=== PATIENT | male | born 1940 ===

== ENCOUNTER 2017-06-25 17:02 | Inpatient (IN) | payer OTHER, MEDICAID ==
[2017-06-25 17:02] VITALS: BMI 25.4
[2017-06-25] MEDS ORDERED: Albuterol-Ipratrop 3 mg / 0.5 (3 ml) UD ONE (17:22)
[2017-06-25] MEDS ORDERED: Albuterol-Ipratrop 3 mg / 0.5 (3 ml) UD INH STA (17:24)
--- NOTE | 2017-06-25 17:46 | ED PDOC ---
HPI: SOB/CHF/COPD Time Seen by Provider: 06/25/17 17:13 Chief Complaint (Nursing): Respiratory Distress Chief Complaint (Provider): Shortness of Breath History Per: Patient History/Exam Limitations: no limitations Onset/Duration Of Symptoms: Days (x1) Current Symptoms Are (Timing): Still Present Additional Complaint(s): 77 year old male with a past medical history of asthma, who presents to the ED due to shortness of breath and asthma exacerbation x1 day. Patient reports that he has been feeling severe chest tightness, but not chest pain, and shortness of breath x1 day. States he has been using nebulizer albuterol at home with no relief. Also states he does not follow up with a doctor regularly. Denies any leg swelling or fever. Reports a cough productive of yellow sputum, but denies hemoptysis, rhinorrhea, or sore throat. Denies any sick contacts or recent travel. PMD: None Past Medical History Reviewed: Historical Data, Nursing Documentation, Vital Signs Vital Signs: Last Vital Signs Temp 99.2 F 06/25/17 17:09 Pulse 127 H 06/25/17 17:09 Resp 19 06/25/17 18:08 BP 143/76 06/25/17 17:09 Pulse Ox 90 L 06/25/17 19:32 - Medical History PMH: Anxiety, Asthma, COPD, Depression, Emphysema, HTN Denies: Chronic Kidney Disease - Surgical History Surgical History: Back Surgery Other surgeries: Right knee surgery - Family History Family History: States: Unknown Family Hx - Social History Ex-Smoker (has not smoked in the last 12 months): Yes (quit 8 months ago) - Home Medications Home Medications: Ambulatory Orders Medication Instructions Recorded ARIPiprazole [Abilify] 2 mg PO HS 03/23/16 Cyanocobalamin [Vitamin B12] 250 mcg PO DAILY #0 03/23/16 Mirtazapine [Remeron] 15 mg PO HS 03/23/16 Thiamine [Vitamin B1 Tab] 50 mg PO DAILY #0 03/23/16 Acetaminophen [Tylenol 325mg tab] 650 mg PO Q6H PRN 06/25/17 Albuterol 0.083% [Albuterol 0.083% 3 ml IH Q6H PRN 06/25/17 Inhal Linda (2.5 mg/3 ml) UD] Albuterol HFA [Ventolin HFA 90 2 puff IH Q6H PRN 06/25/17 mcg/actuation (8 g)] Fluticasone/Salmeterol 500/50 1 puff IH Q12H 06/25/17 [Advair Diskus 500/50] Folic Acid [Folic Acid] 1 mg PO DAILY 06/25/17 Omeprazole [Omeprazole] 20 mg PO DAILY 06/25/17 Tiotropium [Spiriva] 18 mcg IH DAILY 06/25/17 Venlafaxine [Effexor XR] 150 mg PO DAILY 06/25/17 - Allergies Allergies/Adverse Reactions: Allergies Allergy/AdvReac Type Severity Reaction Status Date / Time No Known Allergies Allergy Verified 03/23/16 17:52 Review of Systems ROS Statement: Except As Marked, All Systems Reviewed And Found Negative Constitutional: Negative for: Fever ENT: Negative for: Nose Discharge, Throat Pain Cardiovascular: Positive for: Other (chest tightness). Negative for: Chest Pain Respiratory: Positive for: Cough, Shortness of Breath, Sputum (yellow). Negative for: Hemoptysis Musculoskeletal: Negative for: Leg Pain - Laboratory Results Result Diagrams: 06/25/17 17:50 06/25/17 17:50 - ECG O2 Sat by Pulse Oximetry: 90 - Critical Care Total Time (In Min): 30 Medical Decision Making Medical Decision Making: Time: 17:53 Initial Impression: Hypertension, cough, and chest pain. Differential diagnoses include, but are not limited to bronchitis, pneumonia, CHF, ACS Initial Plan: --CT Head w/o contrast --EKG --BNP --CMP --Lactic acid, plasma --Magnesium --Phosphorus --TSH --Troponin I --PTT --PT --Chest X-Ray 2 views --Blood culture --air sampling and monitoring --IV insertion --Reevaluation Time: 18:45 Labs reviewed and found unremarkable. CXR demonstrates opacity in left mid-lung field. Not seen on previous X-Ray 02/2016. Patient's MR number at the time was [id number]. CT ordered for further evaluation. Antibiotics ordered for possible pneumonia. Time: 21:[address] Roman, who covers patient's PMD, for admission to this hospital. Scribe Attestation: Documented by Gualberto Hernandez, acting as a scribe for Zaira Barnes MD. Provider Scribe Attestation: All medical record entries made by the Scribe were at my direction and personally dictated by me. I have reviewed the chart and agree that the record accurately reflects my personal performance of the history, physical exam, medical decision making, and the department course for this patient. I have also personally directed, reviewed, and agree with the discharge instructions and disposition. Disposition - Patient ED Disposition Is Patient to be Admitted: Yes - Disposition Disposition Time: 21:10 Forms: [employer] ([place]) - Pt Status Changed To: Hospital Disposition Of: Inpatient - Admit Certification Admit to Inpatient:: After my assessment, the patient will require hospitalization for at least two midnights. This is because of the severity of symptoms shown, intensity of services needed, and/or the medical risk in this patient being treated as an outpatient.
[2017-06-25 18:03] LABS: BASO # 0.1 K/uL (0.0-0.2); BASO % 0.6 % (0.0-2.0); EOS # 1.2 K/uL (0.0-0.7); EOS % 14.5 % (0.0-4.0); HEMOGLOBIN 12.4 g/dL (12.0-18.0); LYMPH % 23.9 % (20.0-40.0); MEAN CELL VOLUME 93.9 fl (80.0-94.0); MEAN CORPUSCULAR HEMOGLOBIN 30.8 pg (27.0-31.0); MEAN CORPUSCULAR HGB CONC 32.9 g/dL (33.0-37.0); MEAN PLATELET VOLUME 7.9 fl (7.2-11.7); MONO # 0.7 K/uL (0.0-0.8); MONO % 8.2 % (0.0-10.0); NEUT # 4.4 K/uL (1.8-7.0); NEUT % 52.8 % (50.0-75.0); RBC 4.02 Mil/uL (4.40-5.90); RED CELL DISTRIBUTION WIDTH 15.1 % (11.5-14.5); WHITE BLOOD COUNT 8.3 K/uL (4.8-10.8)
[2017-06-25 18:11] LABS: VENOUS BLOOD GAS BASE EXCESS -0.8 mmol/L (0.0-2.0); VENOUS BLOOD GAS PCO2 52 mmHg (40-60); VENOUS BLOOD GAS PO2 92 mm/Hg (30-55); VENOUS BLOOD PH 7.31 (7.32-7.43)
[2017-06-25 18:14] LABS: ALB/GLOB RATIO 1.2 (1.0-2.1); ALBUMIN 4.2 g/dL (3.5-5.0); ALT/SGPT 36 U/L (21-72); AST/SGOT 20 U/L (17-59); BLOOD UREA NITROGEN 16 mg/dl (9-20); CALCIUM 9.5 mg/dL (8.4-10.2); GFR AFRICAN-AMERICAN > 60; GFR NON-AFRICAN AMERICAN > 60
[2017-06-25 18:21] LABS: PARTIAL THROMBOPLASTIN TIME 28.2 Seconds (25.6-37.1)
[2017-06-25 18:26] LABS: B-TYPE NATRIURETIC PEPTIDE 229 pg/ml (0-900)
[2017-06-25] MEDS ORDERED: Azithromycin 500 MG in Sodium Chloride 0.9% 250 ML IVPB ONE (19:00)
--- NOTE | 2017-06-25 20:54 | CT ---
EXAM: CT Chest Without Intravenous Contrast EXAM DATE/TIME: 06/25/2017 6:43 PM CLINICAL HISTORY: 77 years old, male; Signs and symptoms; Shortness of breath and other: Asthma exacerbation; Additional info: Left midlung opacity TECHNIQUE: Axial computed tomography images of the chest without intravenous contrast. All CT scans at this facility use one or more dose reduction techniques, viz.: automated exposure control; ma/kV adjustment per patient size (including targeted exams where dose is matched to indication; i.e. head); or iterative reconstruction technique. Coronal and sagittal reformatted images were created and reviewed. COMPARISON: Recent chest radiographs. FINDINGS: LIMITATIONS: Moderate respiratory motion artifact. LUNGS: Evaluation is somewhat limited due to respiratory motion. A long, bandlike opacity is seen in the left lung, which extends craniocaudally from the lung apex to the hilum. This is associated with bronchiectatic changes and volume loss, and partially extends along the major fissure. The overall appearance of this finding is suggestive of focal chronic scarring and bronchiectasis. Mild emphysematous changes in the lung apices, greater on the right. No definite focal consolidation/infiltrate is seen in the lungs. No evidence of diffuse pulmonary vascular congestion. No large, spiculated lung masses are visualized. PLEURAL SPACE: No pneumothorax or significant pleural effusions seen. HEART: Coronary artery calcification. Heart appears mildly enlarged. No evidence of significant pericardial effusion. BONES/JOINTS: Mild, chronic vertebral compression fracture involving T9. Bony structures appear demineralized. SOFT TISSUES: No acute abnormality of the visualized soft tissues is seen. VASCULATURE: Exam is nondiagnostic for aortic dissection and pulmonary emboli, secondary to unenhanced technique. No evidence of thoracic aortic aneurysm. LYMPH NODES: No evidence of diffuse lymphadenopathy. IMPRESSION: - No evidence of significant acute process on this unenhanced exam, allowing for motion artifact. - The chest radiographic finding appears to correspond to an area of chronic scarring and bronchiectasis in the left lung, as described. - See above for remaining findings.
[2017-06-25] MEDS: Fluticasone-Salmeterol 500-50mcg Diskus IH SCH (23:58)
[2017-06-26] MEDS: Levalbuterol 1.25 MG/3 ML Inhal Soln UD INH SCH ×4 (01:02→20:26)
[2017-06-26] MEDS: Ipratropium 0.02% Inhal Soln (0.5 mg/2.5 ml) UD IH SCH ×4 (01:03→20:26)
[2017-06-26] MEDS ORDERED: methylPREDNISolone 60 MG in Sodium Chloride 0.9% 50 ML IV SCH (04:00)
[2017-06-26 05:32] LABS: BLOOD UREA NITROGEN 16 mg/dl (9-20); CALCIUM 9.4 mg/dL (8.4-10.2); GFR AFRICAN-AMERICAN > 60; GFR NON-AFRICAN AMERICAN > 60; HDL CHOLESTEROL 79 MG/DL (30-70)
[2017-06-26 05:33] LABS: HEMOGLOBIN 12.1 g/dL (12.0-18.0); MEAN CELL VOLUME 93.9 fl (80.0-94.0); MEAN CORPUSCULAR HEMOGLOBIN 31.1 pg (27.0-31.0); MEAN CORPUSCULAR HGB CONC 33.1 g/dL (33.0-37.0); RBC 3.88 Mil/uL (4.40-5.90); WHITE BLOOD COUNT 8.7 K/uL (4.8-10.8)
[2017-06-26 05:43] LABS: LDL CHOLESTEROL 143 mg/dL (0-129)
[2017-06-26] MEDS ORDERED: CYANOCOBALAMIN 500 MCG TAB PO SCH (09:00)
--- NOTE | 2017-06-26 09:07 | CARD ---
APPROVED REPORT EKG Measurement Heart [id number] <Conclusion> Sinus tachycardia with occasional premature ventricular complexes Otherwise normal ECG
[2017-06-26] MEDS: Azithromycin 500 MG in Sodium Chloride 0.9% 250 ML IVPB SCH (09:38)
[2017-06-26] MEDS: Pantoprazole 40 mg EC Tab PO SCH (09:39)
[2017-06-26] MEDS: Venlafaxine 150 mg ER Cap PO SCH (09:40)
--- NOTE | 2017-06-26 12:15 | CP.PCM.HP ---
History of Present Illness - History of Present Illness History of Present Illness: A 77 year old male with a pmhx of HTN, asthma, COPD, emphysema presents to the ED with complains of SOB, cough and chest tightness x 1 day. Patient states he used his nebulizer at home but that did not help. He states cough is productive of yellow sputum. Denies chest pain, palpitations, headache , f/c/n/v. After treatment in the ED, the patient was still SOB thus was admitted for further management. Present on Admission - Present on Admission Any Indicators Present on Admission: No Review of Systems - Review of Systems All systems: reviewed and no additional remarkable complaints except (as noted) - Constitutional Constitutional: As Per HPI - Cardiovascular Cardiovascular: As Per HPI - Respiratory Respiratory: As Per HPI, Cough, Dyspnea - Gastrointestinal Gastrointestinal: As Per HPI - Neurological Neurological: As Per HPI Past Patient History - Infectious Disease Hx of Infectious Diseases: None - Tetanus Immunizations Tetanus Immunization: Unknown - Past Medical History & Family History Past Medical History?: Yes - Past Social History Smoking Status: Former Smoker - CARDIAC Hx Cardiac Disorders: Yes Hx Hypertension: Yes - PULMONARY Hx Respiratory Disorders: Yes Hx Asthma: Yes Hx Chronic Obstructive Pulmonary Disease (COPD): Yes Hx Emphysema: Yes - NEUROLOGICAL Hx Neurological Disorder: No - HEENT Hx HEENT Problems: No - RENAL Hx Chronic Kidney Disease: No - ENDOCRINE/METABOLIC Hx Endocrine Disorders: No - HEMATOLOGICAL/ONCOLOGICAL Hx Blood Disorders: No - INTEGUMENTARY Hx Dermatological Problems: No - MUSCULOSKELETAL/RHEUMATOLOGICAL Hx Musculoskeletal Disorders: No Hx Falls: No - GASTROINTESTINAL Hx Gastrointestinal Disorders: No - GENITOURINARY/GYNECOLOGICAL Hx Genitourinary Disorders: No - PSYCHIATRIC Hx Psychophysiologic Disorder: Yes Hx Anxiety: Yes Hx Depression: Yes Hx Substance Use: No - SURGICAL HISTORY Hx Surgeries: Yes Hx Orthopedic Surgery: Yes (left knee replacement,back surgery) - ANESTHESIA Hx Anesthesia: Yes Hx Anesthesia Reactions: No Hx Malignant Hyperthermia: No Has any member of the family had a problem w/ anesthesia?: No Meds Home Medications: Home Medication List Medication Instructions Recorded Confirmed Type Lactulose [Enulose] 20 gm PO BID PRN udc 07/07/17 Rx diltiaZEM [Cardizem] 30 mg PO TID tab 07/07/17 Rx Allergies/Adverse Reactions: Allergies Allergy/AdvReac Type Severity Reaction Status Date / Time No Known Allergies Allergy Verified 03/23/16 17:52 Physical Exam - Constitutional Additional comments: Short of breath - Head Exam Head Exam: ATRAUMATIC, NORMOCEPHALIC - Eye Exam Eye Exam: Normal appearance Pupil Exam: NORMAL ACCOMODATION - ENT Exam ENT Exam: Mucous Membranes Moist - Neck Exam Neck exam: Positive for: Full Rom - Respiratory Exam Respiratory Exam: Wheezes (scattered through out lung driscoll) - Cardiovascular Exam Cardiovascular Exam: REGULAR RHYTHM, +S1, +S2 - GI/Abdominal Exam GI & Abdominal Exam: Distended (soft), Normal Bowel Sounds - Rectal Exam Rectal Exam: Deferred - Extremities Exam Extremities exam: Positive for: full ROM, pedal pulses present (no edema) - Back Exam Back exam: NORMAL INSPECTION - Neurological Exam Neurological exam: Alert, Oriented x3 - Psychiatric Exam Psychiatric exam: Normal Affect, Normal Mood - Skin Skin Exam: Normal Color, Warm Results - Vital Signs Recent Vital Signs: Last Vital Signs Temp 97.3 F L 06/26/17 08:06 Pulse 97 H 06/26/17 08:06 Resp 20 06/26/17 08:06 BP 138/81 06/26/17 08:06 Pulse Ox 96 06/26/17 08:06 - Labs Result Diagrams: 07/06/17 05:50 07/06/17 05:50 Labs: Laboratory Results - last 24 hr 06/25/17 06/25/17 06/25/17 17:50 17:50 17:50 WBC 8.3 D RBC 4.02 L Hgb 12.4 D Hct 37.8 MCV 93.9 D MCH 30.8 MCHC 32.9 L RDW 15.1 H Plt Count 188 MPV 7.9 Neut % (Auto) 52.8 Lymph % (Auto) 23.9 [place] % (Auto) 8.2 Eos % (Auto) 14.5 H Baso % (Auto) 0.6 Neut # (Auto) 4.4 Lymph # (Auto) 2.0 [place] # (Auto) 0.7 Eos # (Auto) 1.2 H Baso # (Auto) 0.1 PT INR APTT pO2 VBG pH VBG pCO2 VBG HCO3 VBG Total CO2 VBG O2 Sat (Calc) VBG Base Excess VBG Potassium Glucose Lactate FiO2 Sodium 141 Potassium 4.3 Chloride 104 Carbon Dioxide 27 Anion Gap 14 BUN 16 Creatinine 0.9 Est GFR ( Amer) > 60 Est GFR (Non-Af Amer) > 60 Random Glucose 106 Calcium 9.5 Total Bilirubin 0.4 AST 20 ALT 36 Alkaline Phosphatase 63 Troponin I < 0.0120 NT-Pro-B Natriuret Pep 229 Total Protein 7.5 Albumin 4.2 Globulin 3.4 Albumin/Globulin Ratio 1.2 Triglycerides Cholesterol LDL Cholesterol Direct HDL Cholesterol Vitamin B12 TSH 3rd Generation Venous Blood Potassium Influenza Typ A,B (EIA) Negative for flu a/b Blood Type Antibody Screen BBK History Checked 06/25/17 06/25/17 06/25/17 17:50 17:50 18:08 WBC RBC Hgb Hct MCV MCH MCHC RDW Plt Count MPV Neut % (Auto) Lymph % (Auto) [place] % (Auto) Eos % (Auto) Baso % (Auto) Neut # (Auto) Lymph # (Auto) [place] # (Auto) Eos # (Auto) Baso # (Auto) PT 11.0 INR 1.0 APTT 28.2 pO2 92 H VBG pH 7.31 L VBG pCO2 52 VBG HCO3 24.3 VBG Total CO2 27.8 VBG O2 Sat (Calc) 99.1 H VBG Base Excess -0.8 L VBG Potassium 4.3 Glucose 103 Lactate 2.1 FiO2 21.0 Sodium 140.0 Potassium Chloride 103.0 Carbon Dioxide Anion Gap BUN Creatinine Est GFR ( Amer) Est GFR (Non-Af Amer) Random Glucose Calcium Total Bilirubin AST ALT Alkaline Phosphatase Troponin I NT-Pro-B Natriuret Pep Total Protein Albumin Globulin Albumin/Globulin Ratio Triglycerides Cholesterol LDL Cholesterol Direct HDL Cholesterol Vitamin B12 TSH 3rd Generation Venous Blood Potassium 4.3 Influenza Typ A,B (EIA) Blood Type A POSITIVE Antibody Screen Negative BBK History Checked No verified bt 06/26/17 06/26/17 06/26/17 05:10 05:10 08:15 WBC 8.7 RBC 3.88 L Hgb 12.1 Hct 36.4 MCV 93.9 MCH 31.1 H MCHC 33.1 RDW 15.0 H Plt Count 190 MPV Neut % (Auto) Lymph % (Auto) [place] % (Auto) Eos % (Auto) Baso % (Auto) Neut # (Auto) Lymph # (Auto) [place] # (Auto) Eos # (Auto) Baso # (Auto) PT INR APTT pO2 VBG pH VBG pCO2 VBG HCO3 VBG Total CO2 VBG O2 Sat (Calc) VBG Base Excess VBG Potassium Glucose Lactate FiO2 Sodium 142 Potassium 4.5 Chloride 105 Carbon Dioxide 24 Anion Gap 18 BUN 16 Creatinine 0.8 Est GFR ( Amer) > 60 Est GFR (Non-Af Amer) > 60 Random Glucose 163 H Calcium 9.4 Total Bilirubin AST ALT Alkaline Phosphatase Troponin I NT-Pro-B Natriuret Pep Total Protein Albumin Globulin Albumin/Globulin Ratio Triglycerides 71 Cholesterol 242 H LDL Cholesterol Direct 143 H HDL Cholesterol 79 H Vitamin B12 638 TSH 3rd Generation 0.67 Venous Blood Potassium Influenza Typ A,B (EIA) Blood Type Antibody Screen BBK History Checked - Imaging and Cardiology Chest x-ray Additional comment: HISTORY: Shortness of breath. COMPARISON: None. FINDINGS: LUNGS: No active pulmonary disease. PLEURA: No significant pleural effusion identified, no pneumothorax apparent. CARDIOVASCULAR: No radiographic findings to suggest acute or significant cardiovascular disease. OSSEOUS STRUCTURES: No significant abnormalities. VISUALIZED UPPER ABDOMEN: Normal. OTHER FINDINGS: None. IMPRESSION: No active disease. CT scan - chest Additional comment: CT Scan CHEST W/O CONTRAST Exam Date: 06/25/17 This imaging exam was performed at [facility], [place] EXAM: CT Chest Without Intravenous Contrast EXAM DATE/TIME: 06/25/2017 6:43 PM CLINICAL HISTORY: 77 years old, male; Signs and symptoms; Shortness of breath and other: Asthma exacerbation; Additional info: Left midlung opacity TECHNIQUE: Axial computed tomography images of the chest without intravenous contrast. All CT scans at this facility use one or more dose reduction techniques, viz.: automated exposure control; ma/kV adjustment per patient size (including targeted exams where dose is matched to indication; i.e. head); or iterative reconstruction technique. Coronal and sagittal reformatted images were created and reviewed. COMPARISON: Recent chest radiographs. FINDINGS: LIMITATIONS: Moderate respiratory motion artifact. LUNGS: Evaluation is somewhat limited due to respiratory motion. A long, bandlike opacity is seen in the left lung, which extends craniocaudally from the lung apex to the hilum. This is associated with bronchiectatic changes and volume loss, and partially extends along the major fissure. The overall appearance of this finding is suggestive of focal chronic scarring and bronchiectasis. Mild emphysematous changes in the lung apices, greater on the right. No definite focal consolidation/infiltrate is seen in the lungs. No evidence of diffuse pulmonary vascular congestion. No large, spiculated lung masses are visualized. PLEURAL SPACE: No pneumothorax or significant pleural effusions seen. HEART: Coronary artery calcification. Heart appears mildly enlarged. No evidence of significant pericardial effusion. BONES/JOINTS: Mild, chronic vertebral compression fracture involving T9. Bony structures appear demineralized. SOFT TISSUES: No acute abnormality of the visualized soft tissues is seen. VASCULATURE: Exam is nondiagnostic for aortic dissection and pulmonary emboli, secondary to unenhanced technique. No evidence of thoracic aortic aneurysm. LYMPH NODES: No evidence of diffuse lymphadenopathy. IMPRESSION: - No evidence of significant acute process on this unenhanced exam, allowing for motion artifact. - The chest radiographic finding appears to correspond to an area of chronic scarring and bronchiectasis in the left lung, as described. - See above for remaining findings. Dictated By: Ginger Edwards MD Dictated Date/Time: 06/25/172053 Signed By: Ginger Edwards MD Date Signed: 2053 Transcribed By: CELSA Transcribe Date/Time : 06/25/172053 [facility] [ Reading ] [ Conclusion ] Assessment & Plan (1) COPD exacerbation Assessment and Plan: respiratory treatments Duonebs q4 hrs and prn IV steroids O2 via NC, maintain saturation > 92% monitor worker DVT prophylaxis Status: Acute Priority: High (2) HTN (hypertension) Assessment and Plan: cardiac meds Status: Chronic Priority: Medium (3) Tachycardia Assessment and Plan: Cardizem EKG tele monitoring Status: Acute (4) CAP (community acquired pneumonia) Assessment and Plan: Initiate antibiotics Ceftriaxone, Azithromycin sputum culture Status: Resolved Priority: High
--- NOTE | 2017-06-26 12:48 | RAD ---
HISTORY: Shortness of breath. COMPARISON: None. FINDINGS: LUNGS: No active pulmonary disease. PLEURA: No significant pleural effusion identified, no pneumothorax apparent. CARDIOVASCULAR: No radiographic findings to suggest acute or significant cardiovascular disease. OSSEOUS STRUCTURES: No significant abnormalities. VISUALIZED UPPER ABDOMEN: Normal. OTHER FINDINGS: None. IMPRESSION: No active disease.
[2017-06-26] MEDS: Fluticasone-Salmeterol 500-50mcg Diskus IH SCH (15:29)
[2017-06-26] MEDS: CYANOCOBALAMIN (VITAMIN B-12) 250 MCG TABLET PO SCH (15:30)
[2017-06-27] MEDS: Fluticasone-Salmeterol 500-50mcg Diskus IH SCH ×2 (00:05→10:47)
[2017-06-27] MEDS: Ipratropium 0.02% Inhal Soln (0.5 mg/2.5 ml) UD IH SCH ×4 (01:32→19:37)
[2017-06-27] MEDS: Levalbuterol 1.25 MG/3 ML Inhal Soln UD INH SCH ×4 (01:32→19:37)
[2017-06-27] MEDS: CYANOCOBALAMIN (VITAMIN B-12) 250 MCG TABLET PO SCH (08:57)
[2017-06-27] MEDS: Venlafaxine 150 mg ER Cap PO SCH (08:57)
[2017-06-27] MEDS: Pantoprazole 40 mg EC Tab PO SCH (08:58)
[2017-06-27] MEDS: Azithromycin 500 MG in Sodium Chloride 0.9% 250 ML IVPB SCH (08:59)
[2017-06-27] MEDS ORDERED: Levalbuterol 1.25 MG/3 ML Inhal Soln UD INH STA (15:39)
[2017-06-27 15:46] LABS: ABG ALLEN TEST YES; ARTERIAL BLOOD GAS HCO3 26.5 mmol/L (21-28); ARTERIAL BLOOD GAS HEMOGLOBIN 12.1 g/dL (11.7-17.4); ARTERIAL BLOOD GAS O2 CAPACITY 16.8 mL/dL (16-24); ARTERIAL BLOOD GAS O2 CONTENT 16.5 ML/dL (15-23); ARTERIAL BLOOD GAS O2 SAT 98.3 % (95-98); ARTERIAL BLOOD GAS PCO2 47 mm/Hg (35-45); ARTERIAL BLOOD GAS PH 7.38 (7.35-7.45); ARTERIAL BLOOD GAS PO2 103 mm/Hg (80-100); ARTERIAL BLOOD GAS TCO2 29.2 mmol/L (22-28)
[2017-06-27] MEDS ORDERED: Iodixanol 320 MG/ML 100 ML BOTTLE IV ONE (15:47)
[2017-06-27] MEDS ORDERED: Sodium Chloride 0.9% 0 ML IV ONE (15:47)
[2017-06-27 15:57] LABS: BASO % 0.1 % (0.0-2.0); HEMOGLOBIN 11.7 g/dL (12.0-18.0); LYMPH # 0.8 K/uL (1.0-4.3); LYMPH % 6.4 % (20.0-40.0); MEAN CELL VOLUME 93.4 fl (80.0-94.0); MEAN CORPUSCULAR HEMOGLOBIN 30.9 pg (27.0-31.0); MEAN CORPUSCULAR HGB CONC 33.1 g/dL (33.0-37.0); MEAN PLATELET VOLUME 7.9 fl (7.2-11.7); MONO # 0.4 K/uL (0.0-0.8); MONO % 3.8 % (0.0-10.0); NEUT # 10.6 K/uL (1.8-7.0); NEUT % 89.7 % (50.0-75.0); PLATELET COUNT 196 K/uL (130-400); RBC 3.79 Mil/uL (4.40-5.90); WHITE BLOOD COUNT 11.8 K/uL (4.8-10.8)
--- NOTE | 2017-06-27 16:30 | PCM.RRT ---
<Angus Foy - Last Filed: 06/27/17 16:34> [employer] Nurse Assessment - Situation [employer] Reason for Call: Tachycardia, Respiratory Distress - Respiratory Oxygen Delivery Method: Nasal Cannula I.Reason for [employer] - A) Acute Change in Patient: Subjective: [employer] Time: 15:25 [employer] Arrival: 15:25 [employer] Location: [facility]-2 S: [employer] was called by RN on a 77 y/o male due to respiratory difficulty and tachycardia. Pt was on suspine sitting position, with oxygen flowing by nasal cannula. Pt reports severe SOB. O: -Vital signs: BP 172/87, HR 125, Sat O2 96%. -Physical Exam: > Gen: Pt awake, alert and in respiratory distress, able to speak in very short sentences with a lot of effort. > Lungs: Tachypneic with diffuse wheezing on bilateral lungs. > CV: Tachycardia, S1 and S2 present. > ABD: Distended, non-tender. > EXT: No peripheral edema, no cyanosis. [employer] Interventions: - Pt's position in bed re-adjusted and kept in sitting position. Oxygen delivery by NC was optimized. - CBC, CMP, ABG ordered. - Levalbuterol 1.25mg INH ordered. - Cardizem 30 mg administered. - EKG performed, showed sinus tachycardia with a rate of 113 bpm. - CTA of chest, r/o PE. - Attending physician was contacted and made aware of plan. - Pt remained under observation, awake with O2 saturation in the 96-98% range. A/P: 77 y/o M with a PMHx of COPD and HTN, admitted for COPD exacerbation, with aggravating dyspnea and sinus tachycardia, need to R/O PE. - F/U CTA of chest. - F/U ABG, CBC and CMP. - Monitor vital signs. [employer] Leader: Angelique Vogel [employer] Residents: Dr Foy PGY-1. <Angelique Hurd - Last Filed: 06/27/17 16:38> [employer] Nurse Assessment - Vital Signs Vital Signs: Rapid Response Vital Sign Blood Pressure 148/85 Pulse Rate 121 Respiratory Rate 26 Temperature 98.7 F Oxygen Saturation 96 - Vital Signs at end of [employer] Vital Signs at end of [employer]: Rapid Response End Vital Sign Blood Pressure 133/78 Pulse Rate 114 Respiratory Rate 19 Temperature 97.9 F O2 Sat by Pulse Oximetry 93 Attending/Attestation - Attestation I have personally seen and examined this patient.: Yes I have fully participated in the care of the patient.: Yes I have reviewed all pertinent clinical information, including history, physical exam and plan: Yes Notes (Text): Problems: 1. Sinus Tachycardia 2. COPD exacerbation - EKG sinus Tach - ABG 7.38/47/103/98% at 4 liters NC - cont IV steroids, Abx - Xopenex RTC - start low dose Cardizem for HTN and Tachy - CTA of chest to r/o PE Spoke with pt's PMD - Dr Roman - discussed case - he will ff up on pt
[2017-06-27 16:49] LABS: ALB/GLOB RATIO 1.2 (1.0-2.1); ALBUMIN 4.2 g/dL (3.5-5.0); ALT/SGPT 44 U/L (21-72); AST/SGOT 33 U/L (17-59); BLOOD UREA NITROGEN 29 mg/dl (9-20); CALCIUM 9.5 mg/dL (8.4-10.2); GFR AFRICAN-AMERICAN > 60; GFR NON-AFRICAN AMERICAN > 60
[2017-06-27 18:45] LABS: BANDS 3 % (0-2); LYMPHOCYTE 8 % (20-50); MONOCYTE 5 % (0-10); NEUTROPHIL 84 % (42-75); TOTAL CELLS COUNTED 100
[2017-06-27 18:46] LABS: ANISOCYTOSIS SLIGHT; PLATELET ESTIMATE NORMAL (NORMAL)
--- NOTE | 2017-06-27 23:55 | CP.PCM.PN ---
Subjective - Date & Time of Evaluation Date of Evaluation: 06/27/17 Time of Evaluation: 14:50 - Subjective Subjective: continues to be SOB, has cough with yellow sputum. Denies cp, fever or chills Objective - Vital Signs/Intake and Output Vital Signs (last 24 hours): Temp Pulse Resp BP Pulse Ox 97.3 F L 99 H 20 129/58 L 95 06/27/17 23:51 06/27/17 23:51 06/27/17 23:51 06/27/17 23:51 06/27/17 23:51 Intake and Output: 06/27/17 06/28/17 18:59 06:59 Intake Total 1000 Output Total 800 Balance 200 - Medications Medications: Current Medications Acetaminophen (Tylenol 325mg Tab) 650 mg PO Q6H PRN PRN Reason: Pain, Mild (1-3) Last Admin: 06/26/17 01:06 Dose: 650 mg Aripiprazole (Abilify) 2 mg PO HS [facility] Last Admin: 06/27/17 21:59 Dose: 2 mg Diltiazem HCl (Cardizem) 30 mg PO TID [facility] Last Admin: 06/27/17 18:44 Dose: Not Given Folic Acid (Folic Acid) 1 mg PO DAILY [facility] Last Admin: 06/27/17 08:58 Dose: 1 mg Heparin Sodium (Porcine) (Heparin) 5,000 units SC Q8 [facility] PRN Reason: Protocol Last Admin: 06/27/17 16:15 Dose: 5,000 units Ceftriaxone Sodium 1 gm/ (Sodium Chloride) 50 mls @ 50 mls/hr IVPB DAILY [facility] PRN Reason: Protocol Last Admin: 06/27/17 08:59 Dose: 50 mls/hr Azithromycin 500 mg/ Sodium (Chloride) 250 mls @ 250 mls/hr IVPB DAILY [facility] PRN Reason: Protocol Last Admin: 06/27/17 08:59 Dose: 250 mls/hr Ibuprofen (Motrin Tab) 400 mg PO Q6 PRN PRN Reason: Pain, moderate (4-7) Last Admin: 06/27/17 12:26 Dose: 400 mg Ipratropium [place] (Atrovent) 0.5 mg IH RQ6 [facility] Last Admin: 06/27/17 19:37 Dose: 0.5 mg Levalbuterol HCl (Xopenex) 1.25 mg INH RQ6 [facility] Last Admin: 06/27/17 19:37 Dose: 1.25 mg Methylprednisolone (Solu-Medrol) 60 mg IV Q6 [facility] Last Admin: 06/27/17 22:00 Dose: 60 mg Mirtazapine (Remeron) 15 mg PO HS [facility] Last Admin: 06/27/17 22:00 Dose: 15 mg Pantoprazole Sodium (Protonix Ec Tab) 40 mg PO DAILY [facility] Last Admin: 06/27/17 08:58 Dose: 40 mg Fluticasone/Salmeterol (Advair Diskus 500/50) 1 puff IH Q12H [facility] Last Admin: 06/27/17 10:47 Dose: 1 puff Thiamine HCl (Vitamin B1 Tab) 50 mg PO DAILY [facility] Last Admin: 06/27/17 08:58 Dose: 50 mg Venlafaxine HCl (Effexor Xr) 150 mg PO DAILY [facility] Last Admin: 06/27/17 08:57 Dose: 150 mg - Labs Labs: 06/27/17 15:53 06/27/17 15:53 PT 11.0 Seconds (9.8-13.1) 06/25/17 17:50 INR 1.0 (0.9-1.2) 06/25/17 17:50 APTT 28.2 Seconds (25.6-37.1) 06/25/17 17:50 - Constitutional Appears: Non-toxic (appear SOB) - Head Exam Head Exam: ATRAUMATIC, NORMOCEPHALIC - Respiratory Exam Respiratory Exam: Wheezes (scattered) - Cardiovascular Exam Cardiovascular Exam: REGULAR RHYTHM, +S1, +S2 - Neurological Exam Neurological Exam: Alert, Oriented x3 - Psychiatric Exam Psychiatric exam: Normal Affect, Normal Mood - Skin Skin Exam: Normal Color, Warm Assessment and Plan (1) COPD exacerbation Assessment & Plan: Duonebs q4 hrs and prn solumedrol Oxygen via Nc DVT prohylaxis Status: Acute (2) HTN (hypertension) Assessment & Plan: continue cardiac meds Status: Chronic (3) Tachycardia Assessment & Plan: On cardizem repeat EGK tele monitoring Status: Acute (4) CAP (community acquired pneumonia) Assessment & Plan: continue abx Rocephin/Zithromax Status: Resolved
[2017-06-28] MEDS: Fluticasone-Salmeterol 500-50mcg Diskus IH SCH ×3 (00:43→22:54)
[2017-06-28] MEDS: Ipratropium 0.02% Inhal Soln (0.5 mg/2.5 ml) UD IH SCH ×4 (01:00→19:12)
[2017-06-28] MEDS: Levalbuterol 1.25 MG/3 ML Inhal Soln UD INH SCH ×4 (01:00→19:12)
[2017-06-28] MEDS: Venlafaxine 150 mg ER Cap PO SCH (09:16)
[2017-06-28] MEDS: Pantoprazole 40 mg EC Tab PO SCH (09:19)
[2017-06-28] MEDS: CYANOCOBALAMIN (VITAMIN B-12) 250 MCG TABLET PO SCH (09:23)
[2017-06-28] MEDS: Azithromycin 500 MG in Sodium Chloride 0.9% 250 ML IVPB SCH (11:59)
[2017-06-29] MEDS: Levalbuterol 1.25 MG/3 ML Inhal Soln UD INH SCH ×2 (01:06→07:38)
[2017-06-29] MEDS: Ipratropium 0.02% Inhal Soln (0.5 mg/2.5 ml) UD IH SCH ×2 (01:06→07:37)
[2017-06-29] MEDS ORDERED: Ipratropium 0.02% Inhal Soln (0.5 mg/2.5 ml) UD IH STA (05:03)
[2017-06-29] MEDS ORDERED: Levalbuterol 1.25 MG/3 ML Inhal Soln UD INH ONE (05:05)
[2017-06-29] MEDS: Venlafaxine 150 mg ER Cap PO SCH (08:31)
[2017-06-29] MEDS: Pantoprazole 40 mg EC Tab PO SCH (08:33)
[2017-06-29] MEDS: Azithromycin 500 MG in Sodium Chloride 0.9% 250 ML IVPB SCH (08:34)
[2017-06-29] MEDS: CYANOCOBALAMIN (VITAMIN B-12) 250 MCG TABLET PO SCH (09:00)
[2017-06-29] MEDS: Fluticasone-Salmeterol 500-50mcg Diskus IH SCH (11:00)
[2017-06-29] MEDS ORDERED: Albuterol-Ipratrop 3 mg / 0.5 (3 ml) UD INH STA ×2 (11:01→11:06)
[2017-06-29] MEDS ORDERED: Propofol 10 mg/ml 1,000 MG/100 ML VIAL ONE (11:08)
[2017-06-29] MEDS ORDERED: Etomidate 20 mg/10ml Inj IV ONE ×2 (11:09→11:39)
[2017-06-29 11:13] LABS: ABG ALLEN TEST YES; ARTERIAL BLOOD GAS HCO3 27.5 mmol/L (21-28); ARTERIAL BLOOD GAS O2 SAT 99.2 % (95-98); ARTERIAL BLOOD GAS PCO2 62 mm/Hg (35-45); ARTERIAL BLOOD GAS PH 7.31 (7.35-7.45); ARTERIAL BLOOD GAS PO2 199 mm/Hg (80-100); ARTERIAL BLOOD GAS TCO2 33.1 mmol/L (22-28)
[2017-06-29] MEDS ORDERED: Succinylcholine 200 mg/10 ml Inj IV ONE ×2 (11:27→11:40)
[2017-06-29] MEDS ORDERED: Propofol 10 mg/ml Inj (20 ML) IV ONE (11:40)
--- NOTE | 2017-06-29 11:42 | PCM.PROC ---
Procedures Attestation:: I certify that I have explained the specified Operation(s) or Procedure(s), risks, benefits and reasonable alternatives to the Patient and/or other person responsible. The opportunity was given to ask questions and all questions answered - Intubation Time Out Performed: No Sedative: Etomidate, Other (propofol) Mg Given: 100 Paralytic: Succinylholine Mg Given: 100 Laryngoscope: Vida ET Tube Size: 8.0 ET Tube Uncuffed: No (cuffed) ET Tube Secured at Depth: 24 ET Tube Secured Locarion: Lips ET Tube Placement Confirmation: Visualized Passing Through Cords, Breath Sounds Equal Bilaterally, No Breath Sounds Over Epigastrum, Confirmation w/Capnometry Patient Tolerated Procedure: Well, No Complications
[2017-06-29] MEDS ORDERED: Midazolam 50 MG in Sodium Chloride 0.9% 100 ML IV ONE (12:02)
--- NOTE | 2017-06-29 12:13 | RAD ---
PROCEDURE: CHEST RADIOGRAPH, 1 VIEW HISTORY: intubation COMPARISON: Chest radiograph dated 06/25/2017. FINDINGS: LUNGS: Prominence of the pulmonary vasculature may be secondary to AP technique and/or pulmonary vascular congestion. Improved left midlung aeration with No focal consolidation. PLEURA: No pneumothorax or pleural fluid seen. CARDIOVASCULAR: Atherosclerotic aortic calcifications. Cardiomediastinal silhouette within normal limits. OSSEOUS STRUCTURES: Unchanged. VISUALIZED UPPER ABDOMEN: Normal. OTHER FINDINGS: Interval intubation with tip in the right mainstem bronchus. IMPRESSION: Malpositioned endotracheal tube with tip in right mainstem bronchus. Retraction is recommended. Prominence of pulmonary vasculature may be secondary to AP technique and/or pulmonary vascular congestion. No focal consolidation or pleural effusion. Findings conveyed to Dr. Billingsley by Dr. Monaco at 12:09 pm on 06/29/2017.
[2017-06-29] MEDS: Propofol 10 mg/ml 1,000 MG/100 ML VIAL IV SCH ×2 (12:29→17:21)
--- NOTE | 2017-06-29 12:32 | CP.PCM.CON ---
History of Present Illness - History of Present Illness History of Present Illness: 77yo M. PMHx Anxiety, Asthma, COPD, Depression, Emphysema, HTN. admitted for SOB with community acquired pneumonia. (06/29) rapid response for acute respiratory failure, requiring urgent intubation. Review of Systems - Review of Systems Systems not reviewed;Unavailable: Respiratory Distress, Language Barrier Past Patient History - Infectious Disease Hx of Infectious Diseases: None - Tetanus Immunizations Tetanus Immunization: Unknown - Past Medical History & Family History Past Medical History?: Yes - Past Social History Smoking Status: Former Smoker - CARDIAC Hx Cardiac Disorders: Yes Hx Hypertension: Yes - PULMONARY Hx Respiratory Disorders: Yes Hx Asthma: Yes Hx Chronic Obstructive Pulmonary Disease (COPD): Yes Hx Emphysema: Yes - NEUROLOGICAL Hx Neurological Disorder: No - HEENT Hx HEENT Problems: No - RENAL Hx Chronic Kidney Disease: No - ENDOCRINE/METABOLIC Hx Endocrine Disorders: No - HEMATOLOGICAL/ONCOLOGICAL Hx Blood Disorders: No - INTEGUMENTARY Hx Dermatological Problems: No - MUSCULOSKELETAL/RHEUMATOLOGICAL Hx Musculoskeletal Disorders: No Hx Falls: No - GASTROINTESTINAL Hx Gastrointestinal Disorders: No - GENITOURINARY/GYNECOLOGICAL Hx Genitourinary Disorders: No - PSYCHIATRIC Hx Psychophysiologic Disorder: Yes Hx Anxiety: Yes Hx Depression: Yes Hx Substance Use: No - SURGICAL HISTORY Hx Surgeries: Yes Hx Orthopedic Surgery: Yes (left knee replacement,back surgery) - ANESTHESIA Hx Anesthesia: Yes Hx Anesthesia Reactions: No Hx Malignant Hyperthermia: No Has any member of the family had a problem w/ anesthesia?: No Meds Allergies/Adverse Reactions: Allergies Allergy/AdvReac Type Severity Reaction Status Date / Time No Known Allergies Allergy Verified 03/23/16 17:52 - Medications Medications: Current Medications Acetaminophen (Tylenol 325mg Tab) 650 mg PO Q6H PRN PRN Reason: Pain, Mild (1-3) Last Admin: 06/26/17 01:06 Dose: 650 mg Aripiprazole (Abilify) 2 mg PO HS [facility] Last Admin: 06/28/17 22:54 Dose: 2 mg Diltiazem HCl (Cardizem) 30 mg PO TID [facility] Last Admin: 06/29/17 08:33 Dose: 30 mg Folic Acid (Folic Acid) 1 mg PO DAILY [facility] Last Admin: 06/29/17 08:32 Dose: 1 mg Heparin Sodium (Porcine) (Heparin) 5,000 units SC Q8 [facility] PRN Reason: Protocol Last Admin: 06/29/17 08:32 Dose: 5,000 units Ceftriaxone Sodium 1 gm/ (Sodium Chloride) 50 mls @ 50 mls/hr IVPB DAILY [facility] PRN Reason: Protocol Last Admin: 06/29/17 08:34 Dose: 50 mls/hr Azithromycin 500 mg/ Sodium (Chloride) 250 mls @ 250 mls/hr IVPB DAILY [facility] PRN Reason: Protocol Last Admin: 06/29/17 08:34 Dose: 250 mls/hr Propofol (Diprivan) 1,000 mg in 100 mls @ 2.177 mls/hr IV .Q24H [facility]; 5 MCG/KG/ MIN PRN Reason: Protocol Stop: 06/30/17 11:33 Last Admin: 06/29/17 12:29 Dose: 5 mcg/kg/min, 2.177 mls/hr Midazolam HCl 50 mg/ Sodium (Chloride) 150 mls @ 6 mls/hr IV .Q24H ONE; 2 MG/HR PRN Reason: Protocol Stop: 06/30/17 12:01 Ibuprofen (Motrin Tab) 400 mg PO Q6 PRN PRN Reason: Pain, moderate (4-7) Last Admin: 06/27/17 12:26 Dose: 400 mg Ipratropium [place] (Atrovent) 0.5 mg IH RQ6 [facility] Last Admin: 06/29/17 07:37 Dose: 0.5 mg Levalbuterol HCl (Xopenex) 1.25 mg INH RQ6 [facility] Last Admin: 06/29/17 07:38 Dose: 1.25 mg Methylprednisolone (Solu-Medrol) 60 mg IV Q6 [facility] Last Admin: 06/29/17 10:00 Dose: 60 mg Mirtazapine (Remeron) 15 mg PO HS [facility] Last Admin: 06/28/17 22:54 Dose: 15 mg Pantoprazole Sodium (Protonix Ec Tab) 40 mg PO DAILY [facility] Last Admin: 06/29/17 08:33 Dose: 40 mg Fluticasone/Salmeterol (Advair Diskus 500/50) 1 puff IH Q12H [facility] Last Admin: 06/29/17 11:00 Dose: 1 puff Thiamine HCl (Vitamin B1 Tab) 50 mg PO DAILY [facility] Last Admin: 06/29/17 08:31 Dose: 50 mg Venlafaxine HCl (Effexor Xr) 150 mg PO DAILY [facility] Last Admin: 06/29/17 08:31 Dose: 150 mg Physical Exam - Constitutional Appears: In Acute Distress - Head Exam Head Exam: ATRAUMATIC, NORMAL INSPECTION, NORMOCEPHALIC - Eye Exam Eye Exam: EOMI, Normal appearance, PERRL - ENT Exam ENT Exam: Mucous Membranes Moist Additional comments: bilateral parotid swelling - Respiratory Exam Respiratory Exam: Accessory Muscle Use, Clear to Auscultation Bilateral, Rales - Cardiovascular Exam Cardiovascular Exam: Tachycardia - GI/Abdominal Exam GI & Abdominal Exam: Distended, Firm, Normal Bowel Sounds. absent: Tenderness - Neurological Exam Neurological exam: Alert - Psychiatric Exam Psychiatric exam: Agitated - Skin Skin Exam: Dry, Intact, Normal Color, Warm Results - Vital Signs Recent Vital Signs: Last Vital Signs Temp 98.3 F 06/29/17 09:16 Pulse 66 06/29/17 09:16 Resp 20 06/29/17 09:16 BP 108/68 06/29/17 09:16 Pulse Ox 100 06/29/17 09:16 - Labs Result Diagrams: 06/27/17 15:53 06/27/17 15:53 Labs: Laboratory Results - last 24 hr 06/29/17 11:10 pCO2 62 H pO2 199 H HCO3 27.5 ABG pH 7.31 L ABG Total CO2 33.1 H ABG O2 Saturation 99.2 H ABG Base Excess 3.2 H Johan Test Yes ABG Potassium 4.0 A-a O2 Difference 437.0 Sodium 141.0 Chloride 104.0 Glucose 228 H Lactate 4.9 H* FiO2 100.0 Crit Value Called To Sorin fagan Crit Value Called By 15 Crit Value Read Back Y Blood Gas Notified Time 1113 Arterial Blood Potassium 4.0 Assessment & Plan (1) COPD exacerbation Assessment and Plan: 77yo M. PMHx Anxiety, Asthma, COPD, Depression, Emphysema, HTN. admitted for SOB with community acquired pneumonia. (06/29) rapid response for acute respiratory failure, intubated. Neuro: sedated with propofol and versed gtt. Very difficult to sedate. Continue Abilify, Remeron and Effexor. Pulm: acute respiratory failure with hypercarbia requiring intubation, now on PRVC. AECOPD secondary to underlying pneumonia. duonebs, abx, steroids. CV: hemodynamically stable. Hem: no acute issues Renal: no acute issues Endo: no acute issues GI: NPO, pulmocare@20, goal TBD. ID: sepsis from CAP, continue Azithromycin and Ceftriaxone. DVT proph - lovenox GI proph - protonix slater for strict I/O's during acute illness Code status - full code Critical Care Time spent 35 minutes Multi-disciplinary rounds were performed with house staff, nursing, speech therapy, respiratory therapy, pharmacy and nutrition with integrated input from the primary team/attending and other consulting services. The documented time is cumulative and includes review of patient data/exams/labs/chart review and examination of the patient on rounds and throughout the day; time is exclusive of any procedures or teaching time. Status: Acute
[2017-06-29] MEDS ORDERED: Albuterol-Ipratrop 3 mg / 0.5 (3 ml) UD INH PRN (12:37)
--- NOTE | 2017-06-29 12:55 | PCM.RRT ---
EMS EDUCATOR Nurse Assessment - Situation EMS EDUCATOR Reason for Call: Tachycardia, Respiratory Distress - IV IV Inserted during EMS EDUCATOR?: No - Respiratory Oxygen Delivery Method: Nasal Cannula - Medication Medications Administered During EMS EDUCATOR: cardizem 30 mg po and Xopnex inhal - Diagnostic Test Ordered EKG: Yes Chest X-Ray: No CT Scan: No - Stat Labs Ordered EMS EDUCATOR Stat Labs Ordered: CBC, BMP, LACTIC ACID CPR started during EMS EDUCATOR?: No - Vital Signs Vital Signs: Rapid Response Vital Sign Blood Pressure 148/85 Pulse Rate 121 Respiratory Rate 26 Temperature 98.7 F Oxygen Saturation 96 - Time EMS EDUCATOR Ended Time EMS EDUCATOR Ended: 16:00 - Vital Signs at end of EMS EDUCATOR Vital Signs at end of EMS EDUCATOR: Rapid Response End Vital Sign Blood Pressure 133/78 Pulse Rate 114 Respiratory Rate 19 Temperature 97.9 F O2 Sat by Pulse Oximetry 93 - Recommendations EMS EDUCATOR Level of Care Recommendations: Remain in current setting Plan - Assessment of Findings&Treatment Plan EMS EDUCATOR EMS EDUCATOR TIME: 10:54 EMS EDUCATOR LOCATION 408-2 EMS EDUCATOR ARRIVAL 10:55 EMS EDUCATOR REASON Respiratory distress S 77 yo M pmhx of asthma, copd, hypertension was noted to be in acute respiratory distress O EMS EDUCATOR VITALS 183/77 131 bpm; 93% o2 on 4 L NC; 98.3; glucose: 199 EMS EDUCATOR INTERVENTION stat duoneg, VBG, bipap ordered transfer to ICU for intubation 2/2 labored breathing with rapid desaturation A/P 77 yo M pmhx of asthma, copd, htn, with acute respiratory distress EMS EDUCATOR OUTCOME EVENTS: transferred to ICU for stabilization and intubation EMS EDUCATOR END 11:[address] Beck EMS EDUCATOR RESIDENTS: Dr. Ferrara, PGY3; Dr. Perez, PGY1
[2017-06-29] MEDS ORDERED: Sodium Chloride 3% for Inhalation 4 ML VIAL.NEB IH PRN (12:59)
[2017-06-29 14:00] LABS: ABG ALLEN TEST YES; ARTERIAL BLOOD GAS HCO3 32.3 mmol/L (21-28); ARTERIAL BLOOD GAS HEMOGLOBIN 11.8 g/dL (11.7-17.4); ARTERIAL BLOOD GAS O2 CAPACITY 16.7 mL/dL (16-24); ARTERIAL BLOOD GAS O2 CONTENT 16.6 ML/dL (15-23); ARTERIAL BLOOD GAS O2 SAT 99.4 % (95-98); ARTERIAL BLOOD GAS PCO2 60 mm/Hg (35-45); ARTERIAL BLOOD GAS PH 7.39 (7.35-7.45); ARTERIAL BLOOD GAS PO2 193 mm/Hg (80-100); ARTERIAL BLOOD GAS TCO2 38.1 mmol/L (22-28)
[2017-06-29 14:49] LABS: SQUAMOUS EPITHIAL < 1 /hpf (0-5); URINE BILIRUBIN NEGATIVE (NEGATIVE); URINE BLOOD SMALL (NEGATIVE); URINE CLARITY SLIGHTY-CLOUDY (Clear); URINE COLOR YELLOW (YELLOW); URINE GLUCOSE (UA) 50 mg/dL (Normal); URINE LEUKOCYTE ESTERASE NEG Leu/uL (Negative); URINE NITRATE NEGATIVE (NEGATIVE); URINE PROTEIN 30 mg/dL (NEGATIVE); URINE UROBILINOGEN 0.2-1.0 mg/dL (0.2-1.0)
[2017-06-29 14:51] LABS: URINE BACTERIA RARE (<OCC)
[2017-06-29] MEDS: Albuterol-Ipratrop 3 mg / 0.5 (3 ml) UD INH SCH ×2 (16:15→19:26)
[2017-06-29] MEDS ORDERED: Chlorhexidine Gluconate 1 APPL/PKT TP ONE (16:28)
[2017-06-30] MEDS: Albuterol-Ipratrop 3 mg / 0.5 (3 ml) UD INH SCH ×6 (00:47→19:17)
[2017-06-30] MEDS: Propofol 10 mg/ml 1,000 MG/100 ML VIAL IV SCH ×4 (03:59→22:34)
[2017-06-30 05:16] LABS: ABG ALLEN TEST YES; ARTERIAL BLOOD GAS HCO3 34.9 mmol/L (21-28); ARTERIAL BLOOD GAS HEMOGLOBIN 11.7 g/dL (11.7-17.4); ARTERIAL BLOOD GAS O2 CAPACITY 16.2 mL/dL (16-24); ARTERIAL BLOOD GAS O2 CONTENT 15.9 ML/dL (15-23); ARTERIAL BLOOD GAS O2 SAT 98.2 % (95-98); ARTERIAL BLOOD GAS PCO2 61 mm/Hg (35-45); ARTERIAL BLOOD GAS PH 7.42 (7.35-7.45); ARTERIAL BLOOD GAS PO2 91 mm/Hg (80-100); ARTERIAL BLOOD GAS TCO2 41.5 mmol/L (22-28)
[2017-06-30 06:02] LABS: HEMOGLOBIN 11.2 g/dL (12.0-18.0); MEAN CELL VOLUME 93.5 fl (80.0-94.0); MEAN CORPUSCULAR HEMOGLOBIN 30.3 pg (27.0-31.0); MEAN CORPUSCULAR HGB CONC 32.4 g/dL (33.0-37.0); RBC 3.69 Mil/uL (4.40-5.90); RED CELL DISTRIBUTION WIDTH 15.4 % (11.5-14.5); WHITE BLOOD COUNT 8.9 K/uL (4.8-10.8)
[2017-06-30 06:20] LABS: BLOOD UREA NITROGEN 26 mg/dl (9-20); CALCIUM 8.6 mg/dL (8.4-10.2); GFR AFRICAN-AMERICAN > 60; GFR NON-AFRICAN AMERICAN > 60
--- NOTE | 2017-06-30 07:23 | CP.CCUPN ---
CCU Subjective - Physician Review Events Since Last Encounter (Free Text): 06/30/17 10:08 The patient was Seen/interviewed and examined by me at the bedside during ICU round, Medical records reviewed and Management issues were discussed and formulated with the house staff. Events reviewed Mr Hicks is 77 Years old Male with PMHx of HTN, Anxiety, Asthma, Depression and COPD/Emphysema Pt Former heavy smoker, (as per daughter Quit 08/2016, smoker 1-2 PPD for over 60 years) Who presented to the ED on 06/25 with complaint of feeling severe chest tightness, but not chest pain, and shortness of breath x1 day. Patient also Reports a cough productive of yellow sputum, but denies hemoptysis or sore throat. Denies any sick contacts or recent travel. CXR demonstrates opacity in left mid-lung field. Patient was admitted to the floor with diagnosis COPD Exacerbation, bronchitis, pneumonia managed with IV Steroids, Antibiotics and Bronchodilators [employer] was called on 06/27 for Tachycardia, Respiratory Distress, EKG performed, showed sinus tachycardia at 113 bpm, given Levalbuterol 1.25mg INH and Cardizem 30 mg Second [employer] called on 06/29 for Tachycardia, Respiratory Distress, he was orally intubated and transferred to ICU. Pt Awake orally intubated and mechanically ventilated. PRVC AC16 TV450, RR 15, FiO2 50% PEEP of 5. Resp nonlabored spontaneous resp noted. Afebrile, NSR on the monitor Last 24H I&O 270/900 Bilateral venodyne boots intact. This morning labs revealed no Leucocytosis, stable renal function BUN/Cr up to 26/0.8, with ABG of 7.42/60/91/34/98% Critical Care Time Spent (in minutes): 56 CCU Objective - Vital Signs / Intake & Output Vital Signs (Last 4 hours): Vital Signs Temp Pulse Resp BP Pulse Ox 06/30/17 06:00 95 H 17 110/68 97 06/30/17 05:00 88 17 131/75 97 06/30/17 04:00 97.8 F 85 19 118/65 97 Intake and Output (Last 8hrs): Intake & Output 06/29/17 06/30/17 06/30/17 22:59 06:59 14:59 Intake Total 120 150 Output Total 300 600 Balance -180 -450 Intake: IV 120 150 Output: Gastric Amount 100 Stomach 100 Urine 300 500 Urethral (Cormier) 300 500 - Physical Exam Physical Exam Limitations: Positive for: Clinical Condition Head: Positive for: Atraumatic, Normocephalic Pupils: Positive for: PERRL. Negative for: Sluggish, Non-Reactive, Pinpoint Extroacular Muscles: Positive for: EOMI. Negative for: Gaze Palsy, Entrapment Conjunctiva: Positive for: Normal. Negative for: Injected, Icteric Mouth: Positive for: Moist Mucous Membranes Nose (Internal): Positive for: Normal Inspection Neck: Positive for: Normal Range of Motion, Trachea Midline. Negative for: Meningeal Signs, MIDLINE TENDERNESS, Paraspinal Tenderness, JVD, Lymphadenopathy , Bruit, Other Respiratory/Chest: Positive for: Wheezes, Decreased Breath Sounds, Rhonchi. Negative for: Clear to Auscultation, Good Air Exchange, Respiratory Distress, Accessory Muscle Use, Tachypneic, Tender to Palpation Cardiovascular: Positive for: Regular Rate and Rhythm, Normal S1, S2, Peripheal Pulses Present, Tachycardic. Negative for: Murmurs, Irregular Rhythm, Bradycardic Abdomen: Positive for: Distention, Normal Bowel Sounds. Negative for: Peritoneal Signs, Rebound, Guarding Back: Negative for: CVA Tenderness Upper Extremity: Positive for: Normal Inspection, NORMAL PULSES, Capillary Refill < 2s. Negative for: Cyanosis, Edema Lower Extremity: Positive for: Normal Inspection, NORMAL PULSES, Capillary Refill < 2 s. Negative for: Edema, CALF TENDERNESS - Medications Active Medications: Active Medications Generic Name Dose Route Start Last Admin Trade Name Freq PRN Reason Stop Dose Admin Acetaminophen 650 mg 06/25/17 23:04 06/26/17 01:06 Tylenol 325mg Tab PO 650 mg Q6H PRN Administration Pain, Mild (1-3) Albuterol/Ipratropium 3 ml 06/29/17 16:00 06/30/17 04:47 Duoneb 3 Mg/0.5 Mg (3 Ml) Ud INH 3 ml RQ4 CAROLA Administration Aripiprazole 2 mg 06/25/17 23:15 06/29/17 21:47 Abilify PO Not Given HS CAROLA Diltiazem HCl 30 mg 06/27/17 17:00 06/29/17 17:23 Cardizem PO Not Given TID CAROLA Folic Acid 1 mg 06/26/17 09:00 02/04/18 08:32 Folic Acid PO 1 mg DAILY CAROLA Administration Ceftriaxone Sodium 1 gm/ 50 mls @ 50 mls/hr 06/26/17 09:00 06/29/17 08:34 Sodium Chloride IVPB 50 mls/hr DAILY CAROLA Administration Protocol Azithromycin 500 mg/ Sodium 250 mls @ 250 mls/hr 06/26/17 09:00 06/29/17 08: 34 Chloride IVPB 250 mls/hr DAILY [facility] Administration Protocol Propofol 1,000 mg in 100 mls @ 2.177 mls/hr 06/29/17 11:45 06/30/17 03:59 Diprivan IV 06/30/17 11:33 20 mcg/kg/min .Q24H CAROLA 8.709 mls/hr Protocol Administration 5 MCG/KG/MIN Midazolam HCl 50 mg/ Sodium 150 mls @ 6 mls/hr 06/29/17 12:02 06/29/17 14:35 Chloride IV 06/30/17 12:01 5 mg/hr .Q24H ONE 15 mls/hr Protocol Titration 2 MG/HR Methylprednisolone 60 mg 06/26/17 04:00 06/30/17 04:01 Solu-Medrol IV 60 mg Q6 CAROLA Administration Mirtazapine 15 mg 06/25/17 23:15 06/29/17 21:46 Remeron PO Not Given [facility] Pantoprazole Sodium 40 mg 06/26/17 09:00 06/29/17 08:33 Protonix Ec Tab PO 40 mg DAILY [facility] Administration Thiamine HCl 50 mg 06/26/17 09:00 06/29/17 08:31 Vitamin B1 Tab PO 50 mg DAILY [facility] Administration Venlafaxine HCl 150 mg 06/26/17 09:00 06/29/17 08:31 Effexor Xr PO 150 mg DAILY CAROLA Administration - Patient Studies Lab Studies: Microbiology Studies 06/29/17 14:00 Gram Stain - Final Trachasp 06/25/17 17:30 Blood Culture - Preliminary Blood-Venous NO GROWTH AFTER 4 DAYS 06/25/17 17:50 Blood Culture - Preliminary Blood-Venous NO GROWTH AFTER 4 DAYS Lab Studies 06/30/17 06/30/17 06/30/17 Range/Units 05:10 05:00 04:00 WBC 8.9 (4.8-10.8) K/uL RBC 3.69 L (4.40-5.90) Mil/uL Hgb 11.2 L (12.0-18.0) g/dL Hct 34.5 L (35.0-51.0) % MCV 93.5 (80.0-94.0) fl MCH 30.3 (27.0-31.0) pg MCHC 32.4 L (33.0-37.0) g/dL RDW 15.4 H (11.5-14.5) % Plt Count 185 (130-400) K/uL pCO2 61 H (35-45) mm/Hg pO2 91 (80-100) mm/Hg HCO3 34.9 H (21-28) mmol/L ABG pH 7.42 (7.35-7.45) ABG Total CO2 41.5 H (22-28) mmol/L ABG O2 Saturation 98.2 H (95-98) % ABG O2 Content 15.9 (15-23) ML/dL ABG Base Excess 12.8 H (-2.0-3.0) mmol/L ABG Hemoglobin 11.7 (11.7-17.4) g/dL ABG Carboxyhemoglobin 0.8 (0.5-1.5) % POC ABG HHb (Measured) 1.8 (0.0-5.0) % ABG Methemoglobin 1.3 (0.0-3.0) % ABG O2 Capacity 16.2 (16-24) mL/dL Johan Test Yes ABG Potassium (3.6-5.2) mmol/L A-a O2 Difference 189.0 mm/Hg Hgb O2 Saturation 96.1 (95.0-98.0) % Sodium 142 (132-148) mmol/L Chloride 101 (98-107) mmol/L Glucose (75-110) mg/dL Lactate (0.7-2.1) mmol/L Vent Mode Prvc ac Mechanical Rate 15 FiO2 50.0 % Tidal Volume 450 PEEP 5 Crit Value Called To Crit Value Called By Crit Value Read Back Blood Gas Notified Time Potassium 4.1 (3.6-5.0) MMOL/L Carbon Dioxide 36 H (22-30) mmol/L Anion Gap 9 L (10-20) BUN 26 H (9-20) mg/dl Creatinine 0.8 (0.8-1.5) mg/dl Est GFR ( Amer) > 60 Est GFR (Non-Af Amer) > 60 POC Glucose (mg/dL) (65-110) mg/dL Random Glucose 158 H (75-110) mg/dL Calcium 8.6 (8.4-10.2) mg/dL Arterial Blood Potassium (3.6-5.2) mmol/L Urine Color (YELLOW) Urine Clarity (Clear) Urine pH (5.0-8.0) Ur Specific [place] (1.003-1.030) Urine Protein (NEGATIVE) mg/dL Urine Glucose (UA) (Normal) mg/dL Urine Ketones (NEGATIVE) mg/dL Urine Blood (NEGATIVE) Urine Nitrate (NEGATIVE) Urine Bilirubin (NEGATIVE) Urine Urobilinogen (0.2-1.0) mg/dL Ur Leukocyte Esterase (Negative) Nancy/uL Urine RBC (Auto) (0-3) /hpf Urine Microscopic WBC (0-5) /hpf Ur Squamous Epith Cells (0-5) /hpf Urine Bacteria (<OCC) 06/29/17 06/29/17 06/29/17 Range/Units 14:00 13:45 11:10 WBC (4.8-10.8) K/uL RBC (4.40-5.90) Mil/uL Hgb (12.0-18.0) g/dL Hct (35.0-51.0) % MCV (80.0-94.0) fl MCH (27.0-31.0) pg MCHC (33.0-37.0) g/dL RDW (11.5-14.5) % Plt Count (130-400) K/uL pCO2 60 H 62 H (35-45) mm/Hg pO2 193 H 199 H (80-100) mm/Hg HCO3 32.3 H 27.5 (21-28) mmol/L ABG pH 7.39 7.31 L (7.35-7.45) ABG Total CO2 38.1 H 33.1 H (22-28) mmol/L ABG O2 Saturation 99.4 H 99.2 H (95-98) % ABG O2 Content 16.6 (15-23) ML/dL ABG Base Excess 9.4 H 3.2 H (-2.0-3.0) mmol/L ABG Hemoglobin 11.8 (11.7-17.4) g/dL ABG Carboxyhemoglobin 0.7 (0.5-1.5) % POC ABG HHb (Measured) 0.6 (0.0-5.0) % ABG Methemoglobin 1.4 (0.0-3.0) % ABG O2 Capacity 16.7 (16-24) mL/dL Johan Test Yes Yes ABG Potassium 4.0 (3.6-5.2) mmol/L A-a O2 Difference 89.0 437.0 mm/Hg Hgb O2 Saturation 97.3 (95.0-98.0) % Sodium 141.0 (132-148) mmol/L Chloride 104.0 (98-107) mmol/L Glucose 228 H (75-110) mg/dL Lactate 4.9 H* (0.7-2.1) mmol/L Vent Mode Prvc/ac Mechanical Rate 12 FiO2 50.0 100.0 % Tidal Volume 450 PEEP 5 Crit Value Called To Sorin fagan Crit Value Called By 15 Crit Value Read Back Y Blood Gas Notified Time 1113 Potassium (3.6-5.0) MMOL/L Carbon Dioxide (22-30) mmol/L Anion Gap (10-20) BUN (9-20) mg/dl Creatinine (0.8-1.5) mg/dl Est GFR ( Amer) Est GFR (Non-Af Amer) POC Glucose (mg/dL) (65-110) mg/dL Random Glucose (75-110) mg/dL Calcium (8.4-10.2) mg/dL Arterial Blood Potassium 4.0 (3.6-5.2) mmol/L Urine Color Yellow (YELLOW) Urine Clarity Slighty-cloudy (Clear) Urine pH 6.0 (5.0-8.0) Ur Specific [place] 1.025 (1.003-1.030) Urine Protein 30 (NEGATIVE) mg/dL Urine Glucose (UA) 50 (Normal) mg/dL Urine Ketones Negative (NEGATIVE) mg/dL Urine Blood Small (NEGATIVE) Urine Nitrate Negative (NEGATIVE) Urine Bilirubin Negative (NEGATIVE) Urine Urobilinogen 0.2-1.0 (0.2-1.0) mg/dL Ur Leukocyte Esterase Neg (Negative) Nancy/uL Urine RBC (Auto) 6 H (0-3) /hpf Urine Microscopic WBC 2 (0-5) /hpf Ur Squamous Epith Cells < 1 (0-5) /hpf Urine Bacteria Rare (<OCC) 06/29/17 Range/Units 10:58 WBC (4.8-10.8) K/uL RBC (4.40-5.90) Mil/uL Hgb (12.0-18.0) g/dL Hct (35.0-51.0) % MCV (80.0-94.0) fl MCH (27.0-31.0) pg MCHC (33.0-37.0) g/dL RDW (11.5-14.5) % Plt Count (130-400) K/uL pCO2 (35-45) mm/Hg pO2 (80-100) mm/Hg HCO3 (21-28) mmol/L ABG pH (7.35-7.45) ABG Total CO2 (22-28) mmol/L ABG O2 Saturation (95-98) % ABG O2 Content (15-23) ML/dL ABG Base Excess (-2.0-3.0) mmol/L ABG Hemoglobin (11.7-17.4) g/dL ABG Carboxyhemoglobin (0.5-1.5) % POC ABG HHb (Measured) (0.0-5.0) % ABG Methemoglobin (0.0-3.0) % ABG O2 Capacity (16-24) mL/dL Johan Test ABG Potassium (3.6-5.2) mmol/L A-a O2 Difference mm/Hg Hgb O2 Saturation (95.0-98.0) % Sodium (132-148) mmol/L Chloride (98-107) mmol/L Glucose (75-110) mg/dL Lactate (0.7-2.1) mmol/L Vent Mode Mechanical Rate FiO2 % Tidal Volume PEEP Crit Value Called To Crit Value Called By Crit Value Read Back Blood Gas Notified Time Potassium (3.6-5.0) MMOL/L Carbon Dioxide (22-30) mmol/L Anion Gap (10-20) BUN (9-20) mg/dl Creatinine (0.8-1.5) mg/dl Est GFR ( Amer) Est GFR (Non-Af Amer) POC Glucose (mg/dL) 199 H (65-110) mg/dL Random Glucose (75-110) mg/dL Calcium (8.4-10.2) mg/dL Arterial Blood Potassium (3.6-5.2) mmol/L Urine Color (YELLOW) Urine Clarity (Clear) Urine pH (5.0-8.0) Ur Specific [place] (1.003-1.030) Urine Protein (NEGATIVE) mg/dL Urine Glucose (UA) (Normal) mg/dL Urine Ketones (NEGATIVE) mg/dL Urine Blood (NEGATIVE) Urine Nitrate (NEGATIVE) Urine Bilirubin (NEGATIVE) Urine Urobilinogen (0.2-1.0) mg/dL Ur Leukocyte Esterase (Negative) Nancy/uL Urine RBC (Auto) (0-3) /hpf Urine Microscopic WBC (0-5) /hpf Ur Squamous Epith Cells (0-5) /hpf Urine Bacteria (<OCC) Laboratory Results - last 24 hr 06/29/17 06/29/17 06/29/17 10:58 11:10 13:45 WBC RBC Hgb Hct MCV MCH MCHC RDW Plt Count pCO2 62 H 60 H pO2 199 H 193 H HCO3 27.5 32.3 H ABG pH 7.31 L 7.39 ABG Total CO2 33.1 H 38.1 H ABG O2 Saturation 99.2 H 99.4 H ABG O2 Content 16.6 ABG Base Excess 3.2 H 9.4 H ABG Hemoglobin 11.8 ABG Carboxyhemoglobin 0.7 POC ABG HHb (Measured) 0.6 ABG Methemoglobin 1.4 ABG O2 Capacity 16.7 Johan Test Yes Yes ABG Potassium 4.0 A-a O2 Difference 437.0 89.0 Hgb O2 Saturation 97.3 Sodium 141.0 Chloride 104.0 Glucose 228 H Lactate 4.9 H* Vent Mode Prvc/ac Mechanical Rate 12 FiO2 100.0 50.0 Tidal Volume 450 PEEP 5 Crit Value Called To Sorin fagan Crit Value Called By 15 Crit Value Read Back Y Blood Gas Notified Time 1113 Potassium Carbon Dioxide Anion Gap BUN Creatinine Est GFR ( Amer) Est GFR (Non-Af Amer) POC Glucose (mg/dL) 199 H Random Glucose Calcium Arterial Blood Potassium 4.0 Urine Color Urine Clarity Urine pH Ur Specific [place] Urine Protein Urine Glucose (UA) Urine Ketones Urine Blood Urine Nitrate Urine Bilirubin Urine Urobilinogen Ur Leukocyte Esterase Urine RBC (Auto) Urine Microscopic WBC Ur Squamous Epith Cells Urine Bacteria 06/29/17 06/30/17 06/30/17 14:00 04:00 05:00 WBC 8.9 RBC 3.69 L Hgb 11.2 L Hct 34.5 L MCV 93.5 MCH 30.3 MCHC 32.4 L RDW 15.4 H Plt Count 185 pCO2 pO2 HCO3 ABG pH ABG Total CO2 ABG O2 Saturation ABG O2 Content ABG Base Excess ABG Hemoglobin ABG Carboxyhemoglobin POC ABG HHb (Measured) ABG Methemoglobin ABG O2 Capacity Johan Test ABG Potassium A-a O2 Difference Hgb O2 Saturation Sodium 142 Chloride 101 Glucose Lactate Vent Mode Mechanical Rate FiO2 Tidal Volume PEEP Crit Value Called To Crit Value Called By Crit Value Read Back Blood Gas Notified Time Potassium 4.1 Carbon Dioxide 36 H Anion Gap 9 L BUN 26 H Creatinine 0.8 Est GFR ( Amer) > 60 Est GFR (Non-Af Amer) > 60 POC Glucose (mg/dL) Random Glucose 158 H Calcium 8.6 Arterial Blood Potassium Urine Color Yellow Urine Clarity Slighty-cloudy Urine pH 6.0 Ur Specific [place] 1.025 Urine Protein 30 Urine Glucose (UA) 50 Urine Ketones Negative Urine Blood Small Urine Nitrate Negative Urine Bilirubin Negative Urine Urobilinogen 0.2-1.0 Ur Leukocyte Esterase Neg Urine RBC (Auto) 6 H Urine Microscopic WBC 2 Ur Squamous Epith Cells < 1 Urine Bacteria Rare 06/30/17 05:10 WBC RBC Hgb Hct MCV MCH MCHC RDW Plt Count pCO2 61 H pO2 91 HCO3 34.9 H ABG pH 7.42 ABG Total CO2 41.5 H ABG O2 Saturation 98.2 H ABG O2 Content 15.9 ABG Base Excess 12.8 H ABG Hemoglobin 11.7 ABG Carboxyhemoglobin 0.8 POC ABG HHb (Measured) 1.8 ABG Methemoglobin 1.3 ABG O2 Capacity 16.2 Johan Test Yes ABG Potassium A-a O2 Difference 189.0 Hgb O2 Saturation 96.1 Sodium Chloride Glucose Lactate Vent Mode Prvc ac Mechanical Rate 15 FiO2 50.0 Tidal Volume 450 PEEP 5 Crit Value Called To Crit Value Called By Crit Value Read Back Blood Gas Notified Time Potassium Carbon Dioxide Anion Gap BUN Creatinine Est GFR ( Amer) Est GFR (Non-Af Amer) POC Glucose (mg/dL) Random Glucose Calcium Arterial Blood Potassium Urine Color Urine Clarity Urine pH Ur Specific [place] Urine Protein Urine Glucose (UA) Urine Ketones Urine Blood Urine Nitrate Urine Bilirubin Urine Urobilinogen Ur Leukocyte Esterase Urine RBC (Auto) Urine Microscopic WBC Ur Squamous Epith Cells Urine Bacteria Review of Systems - Review of Systems Systems not reviewed;Unavailable: Intubated Critical Care Progress Note - Ventilator Checklist Head of Bed 30 Degrees: Yes Daily Sedation Vacation: Yes Daily Assessment of Readiness to Wean: Yes Daily Spontaneous Breathing Trial: Yes PUD Prophalyxis: Yes DVT Prophylaxis: Yes Oral Care with Chlorhexidine Gluconate {CHG}: Yes - Nutrition Nutrition: Nutrition Category Date Time Status Heart Healthy Diet [DIET] Diets 06/25/17 Breakfast Active Assessment/Plan (1) Acute respiratory failure with hypercapnia Current Visit: Yes Status: Acute Comment: Acute hypercarbic respiratory failure secondary to HCAP and COPD Continue with ICU care for hemodynamic and Respiratory monitoring Continue IV Vancomycin, Cipro and Piperacillin Sod/Tazobactam IV antibiotics with IV Ceftriaxone and Azithromycin Will decrease IV Methylprednisolone to 60 mg IVPB Q 6H Continue nebulizer treatment Continue diuretics as needed Avoid alkalemia and hyperoxia. PRN Diuresis Strict I&O Aggressive pulmonary toilet, chest PT, suctioning Vent weaning in progress Daily CAT/SBT (2) CAP (community acquired pneumonia) Current Visit: Yes Status: Acute Comment: Continue Azithromycin and Ceftriaxone. Blood/Urine and Tracheal aspirate negative (3) COPD exacerbation Current Visit: No Status: Acute Comment: As per cute respiratory failure Schduled for CT angiogram to R/O acute PE ECHO to R/O Pulmonanary hypertension (4) DVT prophylaxis Current Visit: No Status: Acute (5) Hyperglycemia Current Visit: No Status: Acute (6) HTN (hypertension) Current Visit: No Status: Chronic Comment: Continue Diltiazem HCl (Cardizem) 30 mg PO TID - Assessment and Plan (Free Text) Assessment: #. Stress Ulcer prophylaxis with Protonix 40 mg IVP QD. #. DVT prophylaxis with SCD, will start Lovenox #. Code Status: Full code Total critical care time 56 minutes
--- NOTE | 2017-06-30 07:57 | CARD ---
APPROVED REPORT EKG Measurement Heart [id number] <Conclusion> Sinus tachycardia with premature atrial complexes Nonspecific ST abnormality Abnormal ECG
[2017-06-30] MEDS: Venlafaxine 150 mg ER Cap PO SCH (08:32)
[2017-06-30] MEDS: Pantoprazole 40 mg EC Tab PO SCH (08:33)
[2017-06-30] MEDS: Azithromycin 500 MG in Sodium Chloride 0.9% 250 ML IVPB SCH (08:35)
--- NOTE | 2017-06-30 09:34 | RAD ---
HISTORY: ETT placement COMPARISON: Comparison made with chest radiograph 06/29/2017. Comparison also made with CT scan chest dated 06/25/2017. FINDINGS: In situ ETT, tip of which lies approximately at or just above the level of the jonathan. The should be withdrawn slightly. In situ NGT, the tip of which has not been included on this film though distal aspect does lie well below EG junction right mid abdomen region. LUNGS: Patchy bibasilar opacities may represent atelectasis and/or infiltrates with bilateral effusions. PLEURA: No significant pleural effusion identified, no pneumothorax apparent. CARDIOVASCULAR: Normal. OSSEOUS STRUCTURES: No significant abnormalities. VISUALIZED UPPER ABDOMEN: Normal. OTHER FINDINGS: None. IMPRESSION: ETT tip appears to at or just above the level of the jonathan. This should be withdrawn slightly. Findings discussed with ICU Nurse Amber at approximately 9:25 a.m. with written down and read back verification. NGT as above. . Patchy bibasilar opacities may represent atelectasis and/or infiltrates with bilateral effusions.
--- NOTE | 2017-06-30 10:27 | CP.PCM.CON ---
History of Present Illness - History of Present Illness History of Present Illness: 77 year old male with a past medical history of asthma, who presents to the ED due to shortness of breath and asthma exacerbation x1 day. Patient reports that he has been feeling severe chest tightness, but not chest pain, and shortness of breath x1 day. States he has been using nebulizer albuterol at home with no relief. Also states he does not follow up with a doctor regularly. Denies any leg swelling or fever. Reports a cough productive of yellow sputum, but denies hemoptysis, rhinorrhea, or sore throat. Denies any sick contacts or recent travel. developed resp failure now intubated in ICU cultures thus far negative - Medical History PMH: Anxiety, Asthma, COPD, Depression, Emphysema, HTN Review of Systems - Review of Systems Systems not reviewed;Unavailable: Altered Mental Status, Intubated - Constitutional Constitutional: absent: As Per HPI, Anorexia, Chills, Daytime Sleepiness, Excessive Sweating, Fatigue, Fever, Frequent Falls, Headache, Increased Appetite , Lethargy, Malaise, Night Sweats, Snoring, Sleep Apnea, Weight Gain, Weight Loss, Weakness, Other - EENT Eyes: absent: As Per HPI, Blind Spots, Blurred Vision, Change in Vision, Decreased Night Vision, Diplopia, Discharge, Dry Eye, Exophthalmos, Floaters, Irritation, Itchy Eyes, Loss of Peripheral Vision, Pain, Photophobia, Requires Corrective Lenses, Sees Flashes, Spots in Vision, Tunnel Vision, Other Visual Disturbances, Loss of Vision, Other Ears: absent: As Per HPI, Decreased Hearing, Ear Discharge, Ear Pain, Tinnitus, Abnormal Hearing, Disequilibrium, Dizziness, Other Nose/Mouth/Throat: absent: As Per HPI, Epistaxis, Nasal Congestion, Nasal Discharge, Nasal Obstruction, Nasal Trauma, Nose Pain, Post Nasal Drip, Sinus Pain, Sinus Pressure, Bleeding Gums, Change in Voice, Dental Pain, Dry Mouth, Dysphagia, Halitosis, Hoarsness, Lip Swelling, Mouth Lesions, Mouth Pain, Odynophagia, Sore Throat, Throat Swelling, Tongue Swelling, Facial Pain, Neck Pain, Neck Mass, Other - Cardiovascular Cardiovascular: absent: As Per HPI, Acrocyanosis, Chest Pain, Chest Pain at Rest , Chest Pain with Activity, Claudication, Diaphoresis, Dyspnea, Dyspnea on Exertion, Edema, Irregular Heart Rhythm, Pain Radiating to Arm/Neck/Jaw, Leg Edema, Leg Ulcers, Lightheadedness, Orthopnea, Palpitations, Paroxysmal Nocturnal Dyspnea, Pedal Edema, Radiating Pain, Rapid Heart Rate, Slow Heart Rate, Syncope, Other - Respiratory Respiratory: absent: As Per HPI, Cough, Dyspnea, Hemoptysis, Dyspnea on Exertion , Wheezing, Snoring, Stridor, Pain on Inspiration, Chest Congestion, Excessive Mucous Production, Change in Mucous Color, Pain with Coughing, Other - Gastrointestinal Gastrointestinal: absent: As Per HPI, Abdominal Pain, Belching, Bloating, Change in Bowel Habits, Change in Stool Character, Coffee Ground Emesis, Constipation, Cramping, Diarrhea, Dyspepsia, Dysphagia, Early Satiety, Excessive Flatus, Fecal Incontinence, Heartburn, Hematemesis, Hematochezia, Loose Stools, Melena, Nausea, Odynophagia, Temesmus, Vomiting, Other - Genitourinary Genitourinary: absent: As Per HPI, Change in Urinary Stream, Difficulty Urinating, Dysuria, Flank Pain, Hematuria, Pyuria, Nocturia, Urinary Incontinence, Urinary Frequency, Urinary Hesitance, Urinary Urgency, Voiding Freq/Small Amts, Freq UTI, Hx Renal/Bladder Calculi, Hx /Renal Surgery, Bladder Distension, Other - Musculoskeletal Musculoskeletal: absent: As Per HPI, Abnormal Gait, Arthralgias, Atrophy, Back Pain, Deformity, Joint Swelling, Limited Range of Motion, Loss of Height, Muscle Cramps, Muscle Weakness, Myalgias, Neck Pain, Numbness, Radiating Pain into Limb, Stiffness, Tingling, Other - Integumentary Integumentary: absent: As Per HPI, Acne, Alopecia, Bleeding Lesions, Change in Hair, Change in Nails, Change in Pigmentation, Changing Lesions, Dry Skin, Erythema, Furuncle, Hirsutism, Lesions, New Lesions, Non-Healing Lesions, Photosensitivity, Pruritus, Rash, Skin Pain, Skin Ulcer, Sores, Striae, Swelling , Unusual Bruising, Wounds, Jaundice, Other - Neurological Neurological: absent: As Per HPI, Abnormal Gait, Abnormal Hearing, Abnormal Movements, Abnormal Speech, Behavioral Changes, Burning Sensations, Confusion, Convulsions, Disequilibrium, Dizziness, Numbness, Focal Weakness, Frequent Falls , Headaches, Lack of Coordination, Loss of Vision, Memory Loss, Paresthesias, Radicular Pain, Restless Legs, Sensory Deficit, Syncope, Tingling, Tremor, Vertigo, Weakness, Other Visual Disturbances, Other - Psychiatric Psychiatric: absent: As Per HPI, Abnormal Sleep Pattern, Anhedonia, Anxiety, Auditory Hallucinations, Behavioral Changes, Change in Appetite, Change in Libido, Confusion, Depression, Difficulty Concentrating, Hallucinations, Homicidal Ideation, Hopelessness, Irritability, Memory Loss, Mood Swings, Panic Attacks, Paranoia, Suicidal Ideation, Visual Hallucinations, Tactile Hallucinations, Other - Endocrine Endocrine: absent: As Per HPI, Change in Body Appearance, Change in Libido, Cold Intolorance, Deepening of Voice, Excessive Sweating, Fatigue, Flushing, Heat Intolorance, Increase in Ring/Shoe/Hat Size, Palpitations, Polydipsia, Polyphagia, Polyuria, Other - Hematologic/Lymphatic Hematologic: absent: As Per HPI, Easy Bleeding, Easy Bruising, Lymphadenopathy, Other Past Patient History - Infectious Disease Hx of Infectious Diseases: None - Tetanus Immunizations Tetanus Immunization: Unknown - Past Medical History & Family History Past Medical History?: Yes - Past Social History Smoking Status: Former Smoker - CARDIAC Hx Cardiac Disorders: Yes Hx Hypertension: Yes - PULMONARY Hx Respiratory Disorders: Yes Hx Asthma: Yes Hx Chronic Obstructive Pulmonary Disease (COPD): Yes Hx Emphysema: Yes - NEUROLOGICAL Hx Neurological Disorder: No - HEENT Hx HEENT Problems: No - RENAL Hx Chronic Kidney Disease: No - ENDOCRINE/METABOLIC Hx Endocrine Disorders: No - HEMATOLOGICAL/ONCOLOGICAL Hx Blood Disorders: No - INTEGUMENTARY Hx Dermatological Problems: No - MUSCULOSKELETAL/RHEUMATOLOGICAL Hx Musculoskeletal Disorders: No Hx Falls: No - GASTROINTESTINAL Hx Gastrointestinal Disorders: No - GENITOURINARY/GYNECOLOGICAL Hx Genitourinary Disorders: No - PSYCHIATRIC Hx Psychophysiologic Disorder: Yes Hx Anxiety: Yes Hx Depression: Yes Hx Substance Use: No - SURGICAL HISTORY Hx Surgeries: Yes Hx Orthopedic Surgery: Yes (left knee replacement,back surgery) - ANESTHESIA Hx Anesthesia: Yes Hx Anesthesia Reactions: No Hx Malignant Hyperthermia: No Has any member of the family had a problem w/ anesthesia?: No Meds Allergies/Adverse Reactions: Allergies Allergy/AdvReac Type Severity Reaction Status Date / Time No Known Allergies Allergy Verified 03/23/16 17:52 - Medications Medications: Current Medications Acetaminophen (Tylenol 325mg Tab) 650 mg PO Q6H PRN PRN Reason: Pain, Mild (1-3) Last Admin: 06/26/17 01:06 Dose: 650 mg Albuterol/Ipratropium (Duoneb 3 Mg/0.5 Mg (3 Ml) Ud) 3 ml INH RQ4 [facility] Last Admin: 06/30/17 08:05 Dose: 3 ml Aripiprazole (Abilify) 2 mg PO HS [facility] Last Admin: 06/29/17 21:47 Dose: Not Given Diltiazem HCl (Cardizem) 30 mg PO TID [facility] Last Admin: 06/30/17 08:32 Dose: 30 mg Folic Acid (Folic Acid) 1 mg PO DAILY [facility] Last Admin: 06/30/17 08:33 Dose: 1 mg Ceftriaxone Sodium 1 gm/ (Sodium Chloride) 50 mls @ 50 mls/hr IVPB DAILY [facility] PRN Reason: Protocol Last Admin: 06/30/17 08:33 Dose: 50 mls/hr Azithromycin 500 mg/ Sodium (Chloride) 250 mls @ 250 mls/hr IVPB DAILY [facility] PRN Reason: Protocol Last Admin: 06/30/17 08:35 Dose: 250 mls/hr Propofol (Diprivan) 1,000 mg in 100 mls @ 2.177 mls/hr IV .Q24H [facility]; 5 MCG/KG/ MIN PRN Reason: Protocol Stop: 06/30/17 11:33 Last Admin: 06/30/17 03:59 Dose: 20 mcg/kg/min, 8.709 mls/hr Midazolam HCl 50 mg/ Sodium (Chloride) 150 mls @ 6 mls/hr IV .Q24H [facility]; 2 MG/HR PRN Reason: Protocol Stop: 06/30/17 12:01 Last Titration: 06/29/17 14:35 Dose: 5 mg/hr, 15 mls/hr Methylprednisolone (Solu-Medrol) 60 mg IV Q6 [facility] Last Admin: 06/30/17 09:00 Dose: 60 mg Mirtazapine (Remeron) 15 mg PO HS [facility] Last Admin: 06/29/17 21:46 Dose: Not Given Pantoprazole Sodium (Protonix Ec Tab) 40 mg PO DAILY [facility] Last Admin: 06/30/17 08:33 Dose: 40 mg Thiamine HCl (Vitamin B1 Tab) 50 mg PO DAILY [facility] Last Admin: 06/30/17 08:33 Dose: 50 mg Venlafaxine HCl (Effexor Xr) 150 mg PO DAILY [facility] Last Admin: 06/30/17 08:32 Dose: 150 mg Physical Exam - Constitutional Appears: Non-toxic, Chronically Ill - Head Exam Head Exam: NORMOCEPHALIC - Eye Exam Eye Exam: PERRL - ENT Exam ENT Exam: Mucous Membranes Dry - Neck Exam Neck exam: Negative for: Lymphadenopathy - Respiratory Exam Respiratory Exam: Decreased Breath Sounds - Cardiovascular Exam Cardiovascular Exam: REGULAR RHYTHM - GI/Abdominal Exam GI & Abdominal Exam: Diminished Bowel Sounds, Soft. absent: Tenderness - Rectal Exam Rectal Exam: Deferred - Exam Exam: NORMAL INSPECTION - Extremities Exam Extremities exam: Negative for: pedal edema - Back Exam Back exam: absent: CVA tenderness (L), CVA tenderness (R) - Neurological Exam Neurological exam: Alert, CN II-XII Intact, Oriented x3, Reflexes Normal - Psychiatric Exam Psychiatric exam: Normal Mood - Skin Skin Exam: Dry, Intact Results - Vital Signs Recent Vital Signs: Last Vital Signs Temp 98.1 F 06/30/17 08:00 Pulse 91 H 06/30/17 10:00 Resp 17 06/30/17 10:00 BP 126/76 06/30/17 10:00 Pulse Ox 97 06/30/17 10:00 - Labs Result Diagrams: 06/30/17 04:00 06/30/17 05:00 Labs: Laboratory Results - last 24 hr 06/29/17 06/29/17 06/29/17 10:58 11:10 13:45 WBC RBC Hgb Hct MCV MCH MCHC RDW Plt Count pCO2 62 H 60 H pO2 199 H 193 H HCO3 27.5 32.3 H ABG pH 7.31 L 7.39 ABG Total CO2 33.1 H 38.1 H ABG O2 Saturation 99.2 H 99.4 H ABG O2 Content 16.6 ABG Base Excess 3.2 H 9.4 H ABG Hemoglobin 11.8 ABG Carboxyhemoglobin 0.7 POC ABG HHb (Measured) 0.6 ABG Methemoglobin 1.4 ABG O2 Capacity 16.7 Johan Test Yes Yes ABG Potassium 4.0 A-a O2 Difference 437.0 89.0 Hgb O2 Saturation 97.3 Sodium 141.0 Chloride 104.0 Glucose 228 H Lactate 4.9 H* Vent Mode Prvc/ac Mechanical Rate 12 FiO2 100.0 50.0 Tidal Volume 450 PEEP 5 Crit Value Called To Sorin fagan Crit Value Called By 15 Crit Value Read Back Y Blood Gas Notified Time 1113 Potassium Carbon Dioxide Anion Gap BUN Creatinine Est GFR ( Amer) Est GFR (Non-Af Amer) POC Glucose (mg/dL) 199 H Random Glucose Calcium Arterial Blood Potassium 4.0 Urine Color Urine Clarity Urine pH Ur Specific [place] Urine Protein Urine Glucose (UA) Urine Ketones Urine Blood Urine Nitrate Urine Bilirubin Urine Urobilinogen Ur Leukocyte Esterase Urine RBC (Auto) Urine Microscopic WBC Ur Squamous Epith Cells Urine Bacteria 06/29/17 06/30/17 06/30/17 14:00 04:00 05:00 WBC 8.9 RBC 3.69 L Hgb 11.2 L Hct 34.5 L MCV 93.5 MCH 30.3 MCHC 32.4 L RDW 15.4 H Plt Count 185 pCO2 pO2 HCO3 ABG pH ABG Total CO2 ABG O2 Saturation ABG O2 Content ABG Base Excess ABG Hemoglobin ABG Carboxyhemoglobin POC ABG HHb (Measured) ABG Methemoglobin ABG O2 Capacity Johan Test ABG Potassium A-a O2 Difference Hgb O2 Saturation Sodium 142 Chloride 101 Glucose Lactate Vent Mode Mechanical Rate FiO2 Tidal Volume PEEP Crit Value Called To Crit Value Called By Crit Value Read Back Blood Gas Notified Time Potassium 4.1 Carbon Dioxide 36 H Anion Gap 9 L BUN 26 H Creatinine 0.8 Est GFR ( Amer) > 60 Est GFR (Non-Af Amer) > 60 POC Glucose (mg/dL) Random Glucose 158 H Calcium 8.6 Arterial Blood Potassium Urine Color Yellow Urine Clarity Slighty-cloudy Urine pH 6.0 Ur Specific [place] 1.025 Urine Protein 30 Urine Glucose (UA) 50 Urine Ketones Negative Urine Blood Small Urine Nitrate Negative Urine Bilirubin Negative Urine Urobilinogen 0.2-1.0 Ur Leukocyte Esterase Neg Urine RBC (Auto) 6 H Urine Microscopic WBC 2 Ur Squamous Epith Cells < 1 Urine Bacteria Rare 06/30/17 05:10 WBC RBC Hgb Hct MCV MCH MCHC RDW Plt Count pCO2 61 H pO2 91 HCO3 34.9 H ABG pH 7.42 ABG Total CO2 41.5 H ABG O2 Saturation 98.2 H ABG O2 Content 15.9 ABG Base Excess 12.8 H ABG Hemoglobin 11.7 ABG Carboxyhemoglobin 0.8 POC ABG HHb (Measured) 1.8 ABG Methemoglobin 1.3 ABG O2 Capacity 16.2 Johan Test Yes ABG Potassium A-a O2 Difference 189.0 Hgb O2 Saturation 96.1 Sodium Chloride Glucose Lactate Vent Mode Prvc ac Mechanical Rate 15 FiO2 50.0 Tidal Volume 450 PEEP 5 Crit Value Called To Crit Value Called By Crit Value Read Back Blood Gas Notified Time Potassium Carbon Dioxide Anion Gap BUN Creatinine Est GFR ( Amer) Est GFR (Non-Af Amer) POC Glucose (mg/dL) Random Glucose Calcium Arterial Blood Potassium Urine Color Urine Clarity Urine pH Ur Specific [place] Urine Protein Urine Glucose (UA) Urine Ketones Urine Blood Urine Nitrate Urine Bilirubin Urine Urobilinogen Ur Leukocyte Esterase Urine RBC (Auto) Urine Microscopic WBC Ur Squamous Epith Cells Urine Bacteria Assessment & Plan - Assessment and Plan (Free Text) Assessment: resp failure in setting of COPD all cultures thus far negative agree with current iv rx
[2017-06-30] MEDS: Enoxaparin 40 mg Syringe SC SCH (12:12)
[2017-06-30] MEDS: CYANOCOBALAMIN (VITAMIN B-12) 250 MCG TABLET PO SCH (12:19)
--- NOTE | 2017-06-30 15:32 | CP.PCM.CON ---
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 Pt was brought to ER, [facility], [place] by EMS with moderate SOB, gradually increasing, associated to cough, scanty whitish phlegms, YANEZ, Wheezing. Worsening symptoms: On 06/29/17, noticed Pt to be in respiratory distress, unable to speak in complete sentences, [facility] was called, HR 136, Pt was transferred to ICU and was intubated. Aggravated factor: Intubated, Inability to answer questions. As per record: No fever, chills, coughing blood, CP, abdominal pain, n/v/d, urinary symptoms, LOC, numbness, sick contact, recent travel. 06/30/17 CXR: Patchy bibasilar opacities may represent atelectasis and or infiltrates with b/l effusions. Review of Systems - Review of Systems Systems not reviewed;Unavailable: Acuity of Condition, Intubated Past Patient History - Infectious Disease Hx of Infectious Diseases: None - Tetanus Immunizations Tetanus Immunization: Unknown - Past Medical History & Family History Past Medical History?: Yes Pertinent Family History: Unknown - Past Social History Smoking Status: Heavy Smoker > 10 Cigarettes Daily Alcohol: Occasional Drugs: Denies - CARDIAC Hx Cardiac Disorders: Yes Hx Hypertension: Yes - PULMONARY Hx Respiratory Disorders: Yes Hx Asthma: Yes Hx Chronic Obstructive Pulmonary Disease (COPD): Yes Hx Emphysema: Yes - NEUROLOGICAL Hx Neurological Disorder: No - HEENT Hx HEENT Problems: No - RENAL Hx Chronic Kidney Disease: No - ENDOCRINE/METABOLIC Hx Endocrine Disorders: No - HEMATOLOGICAL/ONCOLOGICAL Hx Blood Disorders: No - INTEGUMENTARY Hx Dermatological Problems: No - MUSCULOSKELETAL/RHEUMATOLOGICAL Hx Musculoskeletal Disorders: No Hx Falls: No - GASTROINTESTINAL Hx Gastrointestinal Disorders: No - GENITOURINARY/GYNECOLOGICAL Hx Genitourinary Disorders: No - PSYCHIATRIC Hx Psychophysiologic Disorder: Yes Hx Anxiety: Yes Hx Depression: Yes Hx Substance Use: No - SURGICAL HISTORY Hx Surgeries: Yes Hx Orthopedic Surgery: Yes (left knee replacement,back surgery) - ANESTHESIA Hx Anesthesia: Yes Hx Anesthesia Reactions: No Hx Malignant Hyperthermia: No Has any member of the family had a problem w/ anesthesia?: No Meds Allergies/Adverse Reactions: Allergies Allergy/AdvReac Type Severity Reaction Status Date / Time No Known Allergies Allergy Verified 03/23/16 17:52 - Medications Medications: Current Medications Acetaminophen (Tylenol 325mg Tab) 650 mg PO Q6H PRN PRN Reason: Pain, Mild (1-3) Last Admin: 06/26/17 01:06 Dose: 650 mg Albuterol/Ipratropium (Duoneb 3 Mg/0.5 Mg (3 Ml) Ud) 3 ml INH RQ4 [facility] Last Admin: 06/30/17 15:26 Dose: 3 ml Aripiprazole (Abilify) 2 mg PO HS [facility] Last Admin: 06/29/17 21:47 Dose: Not Given Diltiazem HCl (Cardizem) 30 mg PO TID [facility] Last Admin: 06/30/17 12:11 Dose: 30 mg Enoxaparin Sodium (Lovenox) 40 mg SC DAILY [facility] PRN Reason: Protocol Last Admin: 06/30/17 12:12 Dose: 40 mg Folic Acid (Folic Acid) 1 mg PO DAILY [facility] Last Admin: 06/30/17 08:33 Dose: 1 mg Azithromycin 500 mg/ Sodium (Chloride) 250 mls @ 250 mls/hr IVPB DAILY [facility] PRN Reason: Protocol Last Admin: 06/30/17 08:35 Dose: 250 mls/hr Ceftriaxone Sodium (Rocephin Iv 1 Gm Duplex) 50 mls @ 50 mls/hr IVPB DAILY [facility] PRN Reason: Protocol Propofol (Diprivan) 1,000 mg in 100 mls @ 2.177 mls/hr IV .Q24H [facility]; 5 MCG/KG/ MIN PRN Reason: Protocol Stop: 07/01/17 12:46 Last Admin: 06/30/17 12:49 Dose: 40 mcg/kg/min, 17.418 mls/hr Methylprednisolone (Solu-Medrol) 60 mg IV Q6 [facility] Last Admin: 06/30/17 09:00 Dose: 60 mg Mirtazapine (Remeron) 15 mg PO HS [facility] Last Admin: 06/29/17 21:46 Dose: Not Given Pantoprazole Sodium (Protonix Ec Tab) 40 mg PO DAILY [facility] Last Admin: 06/30/17 08:33 Dose: 40 mg Thiamine HCl (Vitamin B1 Tab) 50 mg PO DAILY [facility] Last Admin: 06/30/17 08:33 Dose: 50 mg Venlafaxine HCl (Effexor Xr) 150 mg PO DAILY [facility] Last Admin: 06/30/17 08:32 Dose: 150 mg Physical Exam - Constitutional Appears: Chronically Ill - Head Exam Head Exam: NORMAL INSPECTION - Eye Exam Eye Exam: PERRL - ENT Exam Additional comments: Intubated - Neck Exam Neck exam: Positive for: Normal Inspection - Respiratory Exam Respiratory Exam: Decreased Breath Sounds (b/l), Rhonchi (scattered) - Cardiovascular Exam Cardiovascular Exam: REGULAR RHYTHM - GI/Abdominal Exam GI & Abdominal Exam: Normal Bowel Sounds, Soft - Extremities Exam Extremities exam: Positive for: normal inspection - Back Exam Back exam: NORMAL INSPECTION - Neurological Exam Additional comments: Intubated, awake , aware of family at bedside , following commands - Skin Skin Exam: Warm Results - Vital Signs Recent Vital Signs: Last Vital Signs Temp 97.6 F 06/30/17 12:00 Pulse 79 06/30/17 14:00 Resp 16 06/30/17 14:00 BP 99/59 L 06/30/17 14:00 Pulse Ox 97 06/30/17 14:00 reviewed Teri - Labs Result Diagrams: 07/02/17 04:15 07/02/17 04:15 Labs: Laboratory Results - last 24 hr 06/29/17 06/30/17 06/30/17 10:58 04:00 05:00 WBC 8.9 RBC 3.69 L Hgb 11.2 L Hct 34.5 L MCV 93.5 MCH 30.3 MCHC 32.4 L RDW 15.4 H Plt Count 185 pCO2 pO2 HCO3 ABG pH ABG Total CO2 ABG O2 Saturation ABG O2 Content ABG Base Excess ABG Hemoglobin ABG Carboxyhemoglobin POC ABG HHb (Measured) ABG Methemoglobin ABG O2 Capacity Johan Test A-a O2 Difference Hgb O2 Saturation Vent Mode Mechanical Rate FiO2 Tidal Volume PEEP Sodium 142 Potassium 4.1 Chloride 101 Carbon Dioxide 36 H Anion Gap 9 L BUN 26 H Creatinine 0.8 Est GFR ( Amer) > 60 Est GFR (Non-Af Amer) > 60 POC Glucose (mg/dL) 199 H Random Glucose 158 H Calcium 8.6 Ammonia 06/30/17 06/30/17 05:10 11:45 WBC RBC Hgb Hct MCV MCH MCHC RDW Plt Count pCO2 61 H pO2 91 HCO3 34.9 H ABG pH 7.42 ABG Total CO2 41.5 H ABG O2 Saturation 98.2 H ABG O2 Content 15.9 ABG Base Excess 12.8 H ABG Hemoglobin 11.7 ABG Carboxyhemoglobin 0.8 POC ABG HHb (Measured) 1.8 ABG Methemoglobin 1.3 ABG O2 Capacity 16.2 Johan Test Yes A-a O2 Difference 189.0 Hgb O2 Saturation 96.1 Vent Mode Prvc ac Mechanical Rate 15 FiO2 50.0 Tidal Volume 450 PEEP 5 Sodium Potassium Chloride Carbon Dioxide Anion Gap BUN Creatinine Est GFR ( Amer) Est GFR (Non-Af Amer) POC Glucose (mg/dL) Random Glucose Calcium Ammonia 25 reviewed J.P. - EKG Data EKG comments: reviewed J.P. - Imaging and Cardiology Chest x-ray Status: Report reviewed by me (RebecaP.) CT scan - chest Status: Report reviewed by me (Yu.P.) Assessment & Plan (1) Acute respiratory failure with hypercapnia Status: Acute Priority: High (2) CAP (community acquired pneumonia) Status: Acute (3) COPD exacerbation Status: Acute Priority: High (4) Pleural effusion, bilateral Status: Acute Priority: High - Assessment and Plan (Free Text) Plan: Pt on Diprivan, intubated, PRVC A/C 15, FIO2 50%. All C-S were negative, f/u Echo, Continue Rocephin, Zithromax, Duoneb, Solumedrol and rest of Tx. Continue ventilatory support. ICU time: 60 minutes - Date & Time Date: 06/30/17 Time: 09:45
[2017-06-30 19:09] LABS: HEPATITIS B SURFACE AG Negative (NEGATIVE)
[2017-06-30 19:15] LABS: HEPATITIS A IGM NEGATIVE (NEGATIVE); HEPATITIS B CORE AB NEGATIVE (NEGATIVE)
[2017-06-30 19:27] LABS: HEPATITIS C ANTIBODY NEGATIVE (NEGATIVE)
[2017-06-30] MEDS ORDERED: Iodixanol 320 MG/ML 100 ML BOTTLE IV ONE (20:35)
[2017-06-30] MEDS ORDERED: Sodium Chloride 0.9% 50 ML IV ONE (20:36)
--- NOTE | 2017-06-30 22:39 | CT ---
EXAM: CT Abdomen and Pelvis Without Intravenous Contrast EXAM DATE/TIME: 06/30/2017 4:44 PM CLINICAL HISTORY: 77 years old, male; Signs and symptoms; Bloating; Additional info: R/O obstruction TECHNIQUE: Axial computed tomography images of the abdomen and pelvis without intravenous contrast. All CT scans at this facility use one or more dose reduction techniques, viz.: automated exposure control; ma/kV adjustment per patient size (including targeted exams where dose is matched to indication; i.e. head); or iterative reconstruction technique. Coronal and sagittal reformatted images were created and reviewed. COMPARISON: There are no prior studies for comparison. FINDINGS: Lower thorax: Heart size is normal. There is a small right effusion. There is airspace disease at the right base. There is dependent atelectasis at the left base. The esophagus is collapsed around ABDOMEN: Liver: unremarkable Gallbladder and bile ducts: unremarkable Pancreas: Pancreas is mildly atrophic. Spleen: unremarkable Adrenals: unremarkable Kidneys and ureters: unremarkable Stomach and bowel: Stomach is incompletely distended. There is a nasogastric tube terminating in the stomach. Rotation is normal. There is no small bowel obstruction. Terminal ileum is unremarkable. There is mild thickening and increased attenuation of the tip of the appendix. Diameter is approximately 8.5 mm. In Remaining origin of the appendix is unremarkable. There is no periappendiceal inflammation. Motion limits evaluation of the colon. There is moderate. There is extensive sigmoid diverticular disease. Appendix: See stomach and bowel PELVIS: Bladder: Bladder is almost completely empty. There is a Cormier catheter. There is air in the bladder. Reproductive: Seminal vesicles and prostate are unremarkable. ABDOMEN and PELVIS: Intraperitoneal space: There is a small amount of fluid in the left upper quadrant. There are renal vascular calcifications bilaterally.There is no free air or free fluid. Bones/joints: There are degenerative changes in the osseus structures. Soft tissues: unremarkable Vasculature: There are vascular calcifications. Lymph nodes: There is no pathologic adenopathy. IMPRESSION: No acute solid visceral abnormality; no bowel obstruction; mild thickening and enhancement of the tip of the appendix without periappendiceal inflammation, findings are equivocal for acute appendicitis; extensive sigmoid diverticular disease, no CT findings of diverticulitis Additional nonemergent findings as described above.
--- NOTE | 2017-06-30 22:57 | CT ---
EXAM: CT Angiography Chest With Intravenous Contrast EXAM DATE/TIME: 06/30/2017 11:05 AM CLINICAL HISTORY: 77 years old, male; Signs and symptoms; Other: Copd, resp distress TECHNIQUE: Axial computed tomographic angiography images of the chest with intravenous contrast using pulmonary embolism protocol. All CT scans at this facility use one or more dose reduction techniques, viz.: automated exposure control; ma/kV adjustment per patient size (including targeted exams where dose is matched to indication; i.e. head); or iterative reconstruction technique. MIP reconstructed images were created and reviewed. Coronal and sagittal reformatted images were created and reviewed. CONTRAST: 90 mL of [id number] administered intravenously. COMPARISON: CT - CHEST W/O CONTRAST 2017-06-25 19:17 FINDINGS: Heart, aorta and Pulmonary arteries: Heart size is normal. There are coronary artery calcifications. There is no pericardial effusion. There is no aneurysm or dissection. There are vascular calcifications. There are no central pulmonary emboli. Streak, motion and bolus timing limit evaluation of peripheral vessels. There are no large peripheral pulmonary emboli. Lungs and pleural spaces: Trachea distal to the endotracheal tube and main bronchi are patent. There is left upper lobe volume loss/scarring and bronchiectasis, unchanged. There is pleural thickening along the left chest wall. There is subsegmental atelectasis/scarring in the right upper lobe. There is airspace disease at the right base. There are no effusions. Thyroid: Thyroid is only partially imaged. Bones/joints: Bony structures are osteopenic. There is compression fracture of T9. There is less severe compression deformity at T11. Soft tissues: unremarkable Upper abdomen: There are no acute abnormalities in the visualized portion of the abdomen. There is a small amount of fluid in the left upper quadrant. Tubes, lines and devices: An endotracheal tube is in place. Tip of the tube is in the midthoracic trachea. Nasogastric tube is in place and extends below the diaphragm. IMPRESSION: No aneurysm, dissection or central pulmonary embolus; right lower lobe airspace disease/pneumonia; chronic scarring with bronchiectasis in the left upper lobe; continued subsegmental atelectasis in the right upper lobe; compression fractures and degenerative change Additional nonemergent findings as described above.
--- NOTE | 2017-06-30 22:59 | CP.PCM.PN ---
Subjective - Date & Time of Evaluation Date of Evaluation: 06/30/17 Time of Evaluation: 22:59 - Subjective Subjective: CT Abdomen Impression: No acute solid visceral abnormality; no bowel obstruction, mild thickening and enhancement of the tip of the appendix without periappendiceal inflammation, findings are equivocal for acute appendicitis, extensive sigmoid diverticular disease, no CT findings of diverticulitis. Consult Surgery Dr Butler Objective - Vital Signs/Intake and Output Vital Signs (last 24 hours): Temp Pulse Resp BP Pulse Ox 96.6 F L 88 18 120/71 96 06/30/17 16:00 06/30/17 18:00 06/30/17 18:00 06/30/17 18:00 06/30/17 18:00 Intake and Output: 06/30/17 07/01/17 18:59 06:59 Intake Total 1095 100 Output Total 405 Balance 690 100 - Medications Medications: Current Medications Acetaminophen (Tylenol 325mg Tab) 650 mg PO Q6H PRN PRN Reason: Pain, Mild (1-3) Last Admin: 06/26/17 01:06 Dose: 650 mg Albuterol/Ipratropium (Duoneb 3 Mg/0.5 Mg (3 Ml) Ud) 3 ml INH RQ4 [facility] Last Admin: 06/30/17 19:17 Dose: 3 ml Aripiprazole (Abilify) 2 mg PO HS [facility] Last Admin: 06/30/17 22:31 Dose: 2 mg Diltiazem HCl (Cardizem) 30 mg PO TID [facility] Last Admin: 06/30/17 16:05 Dose: 30 mg Enoxaparin Sodium (Lovenox) 40 mg SC DAILY [facility] PRN Reason: Protocol Last Admin: 06/30/17 12:12 Dose: 40 mg Folic Acid (Folic Acid) 1 mg PO DAILY [facility] Last Admin: 06/30/17 08:33 Dose: 1 mg Azithromycin 500 mg/ Sodium (Chloride) 250 mls @ 250 mls/hr IVPB DAILY [facility] PRN Reason: Protocol Last Admin: 06/30/17 08:35 Dose: 250 mls/hr Ceftriaxone Sodium (Rocephin Iv 1 Gm Duplex) 50 mls @ 50 mls/hr IVPB DAILY [facility] PRN Reason: Protocol Propofol (Diprivan) 1,000 mg in 100 mls @ 2.177 mls/hr IV .Q24H [facility]; 5 MCG/KG/ MIN PRN Reason: Protocol Stop: 07/01/17 12:46 Last Admin: 06/30/17 22:34 Dose: 45 mcg/kg/min, 19.595 mls/hr Methylprednisolone (Solu-Medrol) 60 mg IV Q6 [facility] Last Admin: 06/30/17 22:30 Dose: 60 mg Mirtazapine (Remeron) 15 mg PO HS [facility] Last Admin: 06/30/17 22:30 Dose: 15 mg Pantoprazole Sodium (Protonix Ec Tab) 40 mg PO DAILY [facility] Last Admin: 06/30/17 08:33 Dose: 40 mg Thiamine HCl (Vitamin B1 Tab) 50 mg PO DAILY [facility] Last Admin: 06/30/17 08:33 Dose: 50 mg Venlafaxine HCl (Effexor Xr) 150 mg PO DAILY [facility] Last Admin: 06/30/17 08:32 Dose: 150 mg - Labs Labs: 06/30/17 04:00 06/30/17 05:00 PT 11.0 Seconds (9.8-13.1) 06/25/17 17:50 INR 1.0 (0.9-1.2) 06/25/17 17:50 APTT 28.2 Seconds (25.6-37.1) 06/25/17 17:50
[2017-07-01] MEDS: Albuterol-Ipratrop 3 mg / 0.5 (3 ml) UD INH SCH ×6 (00:21→19:57)
[2017-07-01] MEDS: Propofol 10 mg/ml 1,000 MG/100 ML VIAL IV SCH (03:08)
--- NOTE | 2017-07-01 04:17 | CP.PCM.CON ---
<Arslan Lucas - Last Filed: 07/01/17 08:00> History of Present Illness - History of Present Illness History of Present Illness: General Surgery Consult Note for Dr. Butler Reason for consult: mural thickening of appendix on CT 77 M with PMH that includew Anxiety, Asthma, COPD, Depression, Emphysema, HTN who was admitted on 06/25 for SOB secondary to CAP. Patient is currenlty in ICU and intubated with sedation on positive pressure settings. Patient was urgently intubated on 06/29 during rapid response for acute respiratory failure. Patient also had a [employer] called from respiratory distress on 06/27. All history was obtained from records due to clinical condition. Patient responds to some verbal and tactili stimuli. Patient unable appropriately to follow commands due to sedation. ROS unobtainable. Son is usually at bedside as per nursing but was not present at time of evaluation. PMH: Anxiety, Asthma, COPD, Depression, Emphysema, HTN Meds: As per EMR Allergy: NKDA PSH: left knee replacement, back surgery FH: unknown Social: unknown Review of Systems - Review of Systems All systems: reviewed and no additional remarkable complaints except Past Patient History - Infectious Disease Hx of Infectious Diseases: None - Tetanus Immunizations Tetanus Immunization: Unknown - Past Medical History & Family History Past Medical History?: Yes - Past Social History Smoking Status: Heavy Smoker > 10 Cigarettes Daily Alcohol: Occasional Drugs: Denies - CARDIAC Hx Cardiac Disorders: Yes Hx Hypertension: Yes - PULMONARY Hx Respiratory Disorders: Yes Hx Asthma: Yes Hx Chronic Obstructive Pulmonary Disease (COPD): Yes Hx Emphysema: Yes - NEUROLOGICAL Hx Neurological Disorder: No - HEENT Hx HEENT Problems: No - RENAL Hx Chronic Kidney Disease: No - ENDOCRINE/METABOLIC Hx Endocrine Disorders: No - HEMATOLOGICAL/ONCOLOGICAL Hx Blood Disorders: No - INTEGUMENTARY Hx Dermatological Problems: No - MUSCULOSKELETAL/RHEUMATOLOGICAL Hx Musculoskeletal Disorders: No Hx Falls: No - GASTROINTESTINAL Hx Gastrointestinal Disorders: No - GENITOURINARY/GYNECOLOGICAL Hx Genitourinary Disorders: No - PSYCHIATRIC Hx Psychophysiologic Disorder: Yes Hx Anxiety: Yes Hx Depression: Yes Hx Substance Use: No - SURGICAL HISTORY Hx Surgeries: Yes Hx Orthopedic Surgery: Yes (left knee replacement,back surgery) - ANESTHESIA Hx Anesthesia: Yes Hx Anesthesia Reactions: No Hx Malignant Hyperthermia: No Has any member of the family had a problem w/ anesthesia?: No Meds Allergies/Adverse Reactions: Allergies Allergy/AdvReac Type Severity Reaction Status Date / Time No Known Allergies Allergy Verified 03/23/16 17:52 - Medications Medications: Current Medications Acetaminophen (Tylenol 325mg Tab) 650 mg PO Q6H PRN PRN Reason: Pain, Mild (1-3) Last Admin: 06/26/17 01:06 Dose: 650 mg Albuterol/Ipratropium (Duoneb 3 Mg/0.5 Mg (3 Ml) Ud) 3 ml INH RQ4 [facility] Last Admin: 07/01/17 00:21 Dose: 3 ml Aripiprazole (Abilify) 2 mg PO HS [facility] Last Admin: 06/30/17 22:31 Dose: 2 mg Diltiazem HCl (Cardizem) 30 mg PO TID [facility] Last Admin: 06/30/17 16:05 Dose: 30 mg Enoxaparin Sodium (Lovenox) 40 mg SC DAILY [facility] PRN Reason: Protocol Last Admin: 06/30/17 12:12 Dose: 40 mg Folic Acid (Folic Acid) 1 mg PO DAILY [facility] Last Admin: 06/30/17 08:33 Dose: 1 mg Azithromycin 500 mg/ Sodium (Chloride) 250 mls @ 250 mls/hr IVPB DAILY [facility] PRN Reason: Protocol Last Admin: 06/30/17 08:35 Dose: 250 mls/hr Ceftriaxone Sodium (Rocephin Iv 1 Gm Duplex) 50 mls @ 50 mls/hr IVPB DAILY [facility] PRN Reason: Protocol Propofol (Diprivan) 1,000 mg in 100 mls @ 2.177 mls/hr IV .Q24H [facility]; 5 MCG/KG/ MIN PRN Reason: Protocol Stop: 07/01/17 12:46 Last Admin: 07/01/17 03:08 Dose: 40 mcg/kg/min, 17.418 mls/hr Methylprednisolone (Solu-Medrol) 60 mg IV Q6 [facility] Last Admin: 07/01/17 03:10 Dose: 60 mg Mirtazapine (Remeron) 15 mg PO HS [facility] Last Admin: 06/30/17 22:30 Dose: 15 mg Pantoprazole Sodium (Protonix Ec Tab) 40 mg PO DAILY [facility] Last Admin: 06/30/17 08:33 Dose: 40 mg Thiamine HCl (Vitamin B1 Tab) 50 mg PO DAILY [facility] Last Admin: 06/30/17 08:33 Dose: 50 mg Venlafaxine HCl (Effexor Xr) 150 mg PO DAILY [facility] Last Admin: 06/30/17 08:32 Dose: 150 mg Physical Exam - Constitutional Appears: Chronically Ill, Other (sedated) - Head Exam Head Exam: ATRAUMATIC, NORMOCEPHALIC - Eye Exam Eye Exam: Normal appearance - ENT Exam Additional comments: ET tube, OGT in place - Respiratory Exam Additional comments: intubated and on positive pressure support - Cardiovascular Exam Cardiovascular Exam: REGULAR RHYTHM - GI/Abdominal Exam GI & Abdominal Exam: Distended, Firm. absent: Guarding, Rebound, Rigid - Extremities Exam Extremities exam: Positive for: normal capillary refill, pedal pulses present - Neurological Exam Neurological exam: Altered (sedated) - Psychiatric Exam Psychiatric exam: Flat Affect - Skin Skin Exam: Dry, Warm Results - Vital Signs Recent Vital Signs: Last Vital Signs Temp 98 F 07/01/17 00:00 Pulse 89 07/01/17 01:00 Resp 20 07/01/17 01:00 BP 110/74 07/01/17 01:00 Pulse Ox 97 07/01/17 01:00 - Labs Result Diagrams: 07/01/17 05:00 07/01/17 05:00 Labs: Laboratory Results - last 24 hr 06/30/17 06/30/17 06/30/17 04:00 05:00 05:10 WBC 8.9 RBC 3.69 L Hgb 11.2 L Hct 34.5 L MCV 93.5 MCH 30.3 MCHC 32.4 L RDW 15.4 H Plt Count 185 pCO2 61 H pO2 91 HCO3 34.9 H ABG pH 7.42 ABG Total CO2 41.5 H ABG O2 Saturation 98.2 H ABG O2 Content 15.9 ABG Base Excess 12.8 H ABG Hemoglobin 11.7 ABG Carboxyhemoglobin 0.8 POC ABG HHb (Measured) 1.8 ABG Methemoglobin 1.3 ABG O2 Capacity 16.2 Johan Test Yes A-a O2 Difference 189.0 Hgb O2 Saturation 96.1 Vent Mode Prvc ac Mechanical Rate 15 FiO2 50.0 Tidal Volume 450 PEEP 5 Sodium 142 Potassium 4.1 Chloride 101 Carbon Dioxide 36 H Anion Gap 9 L BUN 26 H Creatinine 0.8 Est GFR ( Amer) > 60 Est GFR (Non-Af Amer) > 60 Random Glucose 158 H Calcium 8.6 Ammonia Procalcitonin Hepatitis A IgM Ab Hep Bs Antigen Hep B Core IgM Ab Hepatitis C Antibody HIV 1&2 Antibody Screen 06/30/17 06/30/17 06/30/17 11:45 11:45 11:45 WBC RBC Hgb Hct MCV MCH MCHC RDW Plt Count pCO2 pO2 HCO3 ABG pH ABG Total CO2 ABG O2 Saturation ABG O2 Content ABG Base Excess ABG Hemoglobin ABG Carboxyhemoglobin POC ABG HHb (Measured) ABG Methemoglobin ABG O2 Capacity Johan Test A-a O2 Difference Hgb O2 Saturation Vent Mode Mechanical Rate FiO2 Tidal Volume PEEP Sodium Potassium Chloride Carbon Dioxide Anion Gap BUN Creatinine Est GFR ( Amer) Est GFR (Non-Af Amer) Random Glucose Calcium Ammonia 25 Procalcitonin < 0.05 L Hepatitis A IgM Ab Negative Hep Bs Antigen Negative Hep B Core IgM Ab Negative Hepatitis C Antibody Negative HIV 1&2 Antibody Screen 06/30/17 11:45 WBC RBC Hgb Hct MCV MCH MCHC RDW Plt Count pCO2 pO2 HCO3 ABG pH ABG Total CO2 ABG O2 Saturation ABG O2 Content ABG Base Excess ABG Hemoglobin ABG Carboxyhemoglobin POC ABG HHb (Measured) ABG Methemoglobin ABG O2 Capacity Johan Test A-a O2 Difference Hgb O2 Saturation Vent Mode Mechanical Rate FiO2 Tidal Volume PEEP Sodium Potassium Chloride Carbon Dioxide Anion Gap BUN Creatinine Est GFR ( Amer) Est GFR (Non-Af Amer) Random Glucose Calcium Ammonia Procalcitonin Hepatitis A IgM Ab Hep Bs Antigen Hep B Core IgM Ab Hepatitis C Antibody HIV 1&2 Antibody Screen Negative Assessment & Plan - Assessment and Plan (Free Text) Plan: [address] findings of mural thickening of appendix -Continue IV abx -Management as per ICU -Discussed with Dr. Richa Lucas PGY1 <Juarez Butler B - Last Filed: 07/06/17 18:43> Meds - Medications Medications: Current Medications Acetaminophen (Tylenol 325mg Tab) 650 mg PO Q6H PRN PRN Reason: Pain, Mild (1-3) Last Admin: 06/26/17 01:06 Dose: 650 mg Aripiprazole (Abilify) 2 mg PO HS [facility] Last Admin: 07/05/17 21:29 Dose: 2 mg Diltiazem HCl (Cardizem) 30 mg PO TID [facility] Last Admin: 07/06/17 16:33 Dose: 30 mg Folic Acid (Folic Acid) 1 mg PO DAILY [facility] Last Admin: 07/06/17 08:49 Dose: 1 mg Metronidazole (Flagyl 500mg/100ml Ns) 100 mls @ 100 mls/hr IVPB Q8 [facility] PRN Reason: Protocol Last Admin: 07/06/17 16:31 Dose: 100 mls/hr Lactulose (Enulose) 20 gm PO BID PRN PRN Reason: Constipation Last Admin: 07/05/17 08:40 Dose: 20 gm Mirtazapine (Remeron) 15 mg PO HS [facility] Last Admin: 07/05/17 21:29 Dose: 15 mg Pantoprazole Sodium (Protonix Ec Tab) 40 mg PO DAILY [facility] Last Admin: 07/06/17 08:49 Dose: 40 mg Thiamine HCl (Vitamin B1 Tab) 50 mg PO DAILY [facility] Last Admin: 07/06/17 08:49 Dose: 50 mg Venlafaxine HCl (Effexor Xr) 150 mg PO DAILY [facility] Last Admin: 07/06/17 08:49 Dose: 150 mg Results - Vital Signs Recent Vital Signs: Last Vital Signs Temp 99.1 F 07/06/17 17:08 Pulse 90 07/06/17 17:08 Resp 20 07/06/17 17:08 BP 101/55 L 07/06/17 17:08 Pulse Ox 91 L 07/06/17 17:08 - Labs Result Diagrams: 07/06/17 05:50 07/06/17 05:50 Labs: Laboratory Results - last 24 hr 07/06/17 07/06/17 05:50 05:50 WBC 12.0 H RBC 4.00 L Hgb 12.2 Hct 38.0 MCV 95.0 H MCH 30.5 MCHC 32.0 L RDW 15.4 H Plt Count 151 MPV 8.2 Neut % (Auto) 73.6 Lymph % (Auto) 15.5 L [place] % (Auto) 9.8 Eos % (Auto) 1.1 Baso % (Auto) 0.0 Neut # (Auto) 8.8 H Lymph # (Auto) 1.9 [place] # (Auto) 1.2 H Eos # (Auto) 0.1 Baso # (Auto) 0.0 Sodium 138 Potassium 4.0 Chloride 99 Carbon Dioxide 33 H Anion Gap 10 BUN 24 H Creatinine 0.7 L Est GFR ( Amer) > 60 Est GFR (Non-Af Amer) > 60 Random Glucose 98 Calcium 8.3 L Total Bilirubin 0.5 AST 31 ALT 78 H D Alkaline Phosphatase 36 L Total Protein 5.5 L Albumin 3.0 L Globulin 2.5 Albumin/Globulin Ratio 1.2 Attending/Attestation - Attestation I have personally seen and examined this patient.: Yes I have fully participated in the care of the patient.: Yes I have reviewed all pertinent clinical information: Yes Notes (Text): Pt was seen and examined at bedside Agree with above note and assessment Pt VDRF s/p intubation CT scan s/o mural thickening of tip of appendix Pt is extubated currently No abdominal pain Labs and radiology reviewed Ass: No clinical evidence of appendicitis Advance diet as tolerated IV antibiotics We will f.y Plan d.w pt and ICU attending in detail Risk and benefit explained in detail.
[2017-07-01 05:17] LABS: HEMOGLOBIN 10.6 g/dL (12.0-18.0); MEAN CELL VOLUME 93.4 fl (80.0-94.0); MEAN CORPUSCULAR HEMOGLOBIN 30.6 pg (27.0-31.0); MEAN CORPUSCULAR HGB CONC 32.8 g/dL (33.0-37.0); RBC 3.46 Mil/uL (4.40-5.90); RED CELL DISTRIBUTION WIDTH 15.4 % (11.5-14.5); WHITE BLOOD COUNT 6.7 K/uL (4.8-10.8)
[2017-07-01 05:35] LABS: ABG ALLEN TEST YES; ARTERIAL BLOOD GAS HCO3 34.5 mmol/L (21-28); ARTERIAL BLOOD GAS HEMOGLOBIN 11.5 g/dL (11.7-17.4); ARTERIAL BLOOD GAS O2 CONTENT 15.8 ML/dL (15-23); ARTERIAL BLOOD GAS O2 SAT 98.9 % (95-98); ARTERIAL BLOOD GAS PCO2 55 mm/Hg (35-45); ARTERIAL BLOOD GAS PH 7.45 (7.35-7.45); ARTERIAL BLOOD GAS PO2 118 mm/Hg (80-100); ARTERIAL BLOOD GAS TCO2 39.9 mmol/L (22-28)
[2017-07-01 05:48] LABS: BLOOD UREA NITROGEN 30 mg/dl (9-20); CALCIUM 8.3 mg/dL (8.4-10.2); GFR AFRICAN-AMERICAN > 60; GFR NON-AFRICAN AMERICAN > 60
[2017-07-01] MEDS: Venlafaxine 150 mg ER Cap PO SCH (09:30)
[2017-07-01] MEDS: Pantoprazole 40 mg EC Tab PO SCH (09:30)
[2017-07-01] MEDS: Enoxaparin 40 mg Syringe SC SCH (09:30)
[2017-07-01] MEDS: cefTRIAXone IV 1 gm in Dextros 50 ML IVPB SCH (10:36)
[2017-07-01] MEDS: CYANOCOBALAMIN (VITAMIN B-12) 250 MCG TABLET PO SCH (10:37)
[2017-07-01] MEDS: Azithromycin 500 MG in Sodium Chloride 0.9% 250 ML IVPB SCH (10:37)
[2017-07-01] MEDS: metroNIDAZOLE 500mg/100ml NS 100 ML IVPB SCH ×2 (10:38→18:10)
--- NOTE | 2017-07-01 12:03 | RAD ---
HISTORY: ETT placement COMPARISON: June 30, 2017. Single-view chest. June 30, 2017. CT thorax FINDINGS: LUNGS: No active pulmonary disease. Interval improvement with respect aeration, consolidative changes identified right lower lobe. PLEURA: No significant pleural effusion identified, no pneumothorax apparent. CARDIOVASCULAR: No radiographic findings to suggest acute or significant cardiovascular disease. OSSEOUS STRUCTURES: No significant abnormalities. VISUALIZED UPPER ABDOMEN: Normal. OTHER FINDINGS: Stable position of endotracheal tube. IMPRESSION: No active pulmonary disease, resolved right lower lobe infiltrate. Stable position of endotracheal tube.
--- NOTE | 2017-07-01 14:09 | CP.CCUPN ---
CCU Subjective - Physician Review Events Since Last Encounter (Free Text): 07/01/17 The patient was Seen/interviewed and examined by me at the bedside during ICU round, Medical records reviewed and Management issues were discussed and formulated with the house staff. Events reviewed Mr Hicks is 77 Years old Male with PMHx of HTN, Anxiety, Asthma, Depression and COPD/Emphysema Pt Former heavy smoker, (as per daughter Quit 08/2016, smoker 1-2 PPD for over 60 years) Who presented to the ED on 06/25 with complaint of feeling severe chest tightness, but not chest pain, and shortness of breath x1 day. Patient also Reports a cough productive of yellow sputum, but denies hemoptysis or sore throat. Denies any sick contacts or recent travel. CXR demonstrates opacity in left mid-lung field. Patient was admitted to the floor with diagnosis COPD Exacerbation, bronchitis, pneumonia managed with IV Steroids, Antibiotics and Bronchodilators DIETITIAN HELPER was called on 06/27 for Tachycardia, Respiratory Distress, EKG performed, showed sinus tachycardia at 113 bpm, given Levalbuterol 1.25mg INH and Cardizem 30 mg Second DIETITIAN HELPER called on 06/29 for Tachycardia, Respiratory Distress, he was orally intubated and transferred to ICU on 06/29 Last 24H Events: Patient was on PRVC AC16 TV450, RR 15, FiO2 50% PEEP of 5. He was placed on PSV yesterday morning with tapering PS Tolerating CPAP trial, adequate saturation but low TV He was successfully extubated at 1:30PM Pt was evaluated by surgery for Abd distension, likely ileus Afebrile, NSR on the monitor Last 24H I&O 270/900 07/01/17 15:50 ABD PELVIS PO CONTRAST ONLY: 06/30/17 IMPRESSION: No acute solid visceral abnormality; no bowel obstruction; mild thickening and enhancement of the tip of the appendix without periappendiceal inflammation, findings are equivocal for acute appendicitis; extensive sigmoid diverticular disease, no CT findings of diverticulitis ANGIO CHEST PE PROTOCOL: 06/30/17 IMPRESSION: No aneurysm, dissection or central pulmonary embolus; right lower lobe airspace disease/pneumonia; chronic scarring with bronchiectasis in the left upper lobe; continued subsegmental atelectasis in the right upper lobe; compression fractures and degenerative change CCU Objective - Vital Signs / Intake & Output Vital Signs (Last 4 hours): Vital Signs Temp Pulse Resp BP Pulse Ox 07/01/17 12:00 98.7 F 104 H 23 126/71 97 Intake and Output (Last 8hrs): Intake & Output 06/30/17 07/01/17 07/01/17 22:59 06:59 14:59 Intake Total 510 300 Output Total 120 450 Balance 390 -150 Intake: IV 280 140 Tube Feeding 80 160 Free Water Flush 150 Output: Urine 120 450 Urethral (Cormier) 120 450 - Physical Exam Head: Positive for: Atraumatic, Normocephalic Pupils: Positive for: PERRL. Negative for: Sluggish, Non-Reactive, Pinpoint Extroacular Muscles: Positive for: EOMI. Negative for: Gaze Palsy, Entrapment Conjunctiva: Positive for: Normal. Negative for: Injected, Icteric Mouth: Positive for: Moist Mucous Membranes Nose (Internal): Positive for: Normal Inspection Neck: Positive for: Normal Range of Motion, Trachea Midline. Negative for: Meningeal Signs, MIDLINE TENDERNESS, Paraspinal Tenderness, JVD, Lymphadenopathy , Bruit, Other Respiratory/Chest: Positive for: Wheezes, Decreased Breath Sounds, Rhonchi. Negative for: Clear to Auscultation, Good Air Exchange, Respiratory Distress, Accessory Muscle Use, Tachypneic, Tender to Palpation Cardiovascular: Positive for: Regular Rate and Rhythm, Normal S1, S2, Peripheal Pulses Present, Tachycardic. Negative for: Murmurs, Irregular Rhythm, Bradycardic Abdomen: Positive for: Distention, Normal Bowel Sounds. Negative for: Peritoneal Signs, Rebound, Guarding Back: Negative for: CVA Tenderness Upper Extremity: Positive for: Normal Inspection, NORMAL PULSES, Capillary Refill < 2s. Negative for: Cyanosis, Edema Lower Extremity: Positive for: Normal Inspection, NORMAL PULSES, Capillary Refill < 2 s. Negative for: Edema, CALF TENDERNESS - Medications Active Medications: Active Medications Generic Name Dose Route Start Last Admin Trade Name Freq PRN Reason Stop Dose Admin Acetaminophen 650 mg 06/25/17 23:04 06/26/17 01:06 Tylenol 325mg Tab PO 650 mg Q6H PRN Administration Pain, Mild (1-3) Albuterol/Ipratropium 3 ml 06/29/17 16:00 07/01/17 11:21 Duoneb 3 Mg/0.5 Mg (3 Ml) Ud INH 3 ml RQ4 [facility] Administration Aripiprazole 2 mg 06/25/17 23:15 06/30/17 22:31 Abilify PO 2 mg HS [facility] Administration Diltiazem HCl 30 mg 06/27/17 17:00 07/01/17 09:30 Cardizem PO 30 mg TID [facility] Administration Enoxaparin Sodium 40 mg 06/30/17 11:00 07/01/17 09:30 Lovenox SC 40 mg DAILY [facility] Administration Protocol Folic Acid 1 mg 06/26/17 09:00 07/01/17 09:30 Folic Acid PO 1 mg DAILY [facility] Administration Azithromycin 500 mg/ Sodium 250 mls @ 250 mls/hr 06/26/17 09:00 07/01/17 10: 37 Chloride IVPB 250 mls/hr DAILY [facility] Administration Protocol Ceftriaxone Sodium 50 mls @ 50 mls/hr 07/01/17 09:00 07/01/17 10:36 Rocephin Iv 1 Gm Duplex IVPB 50 mls/hr DAILY [facility] Administration Protocol Metronidazole 100 mls @ 100 mls/hr 07/01/17 09:00 07/01/17 10:38 Flagyl 500mg/100ml Ns IVPB 100 mls/hr Q8 [facility] Administration Protocol Methylprednisolone 60 mg 06/26/17 04:00 07/01/17 10:47 Solu-Medrol IV 60 mg Q6 [facility] Administration Mirtazapine 15 mg 06/25/17 23:15 06/30/17 22:30 Remeron PO 15 mg HS [facility] Administration Pantoprazole Sodium 40 mg 06/26/17 09:00 07/01/17 09:30 Protonix Ec Tab PO 40 mg DAILY [facility] Administration Thiamine HCl 50 mg 06/26/17 09:00 07/01/17 10:37 Vitamin B1 Tab PO 50 mg DAILY [facility] Administration Venlafaxine HCl 150 mg 06/26/17 09:00 07/01/17 09:30 Effexor Xr PO 150 mg DAILY [facility] Administration - Patient Studies Lab Studies: Microbiology Studies 06/29/17 14:00 Gram Stain - Final Trachasp Sputum Culture - Final NORMAL ORAL PAXTON 06/25/17 17:30 Blood Culture - Final Blood-Venous NO GROWTH AFTER 5 DAYS Gram Stain - Final TEST NOT PERFORMED 06/25/17 17:50 Blood Culture - Final Blood-Venous NO GROWTH AFTER 5 DAYS Gram Stain - Final TEST NOT PERFORMED 06/29/17 14:00 MRSA Culture (Admit) - Final Naris MRSA NOT DETECTED 06/29/17 14:00 Urine Culture - Final Urine,Catheterized No Growth (<1,000 CFU/ML) Lab Studies 07/01/17 07/01/17 07/01/17 Range/Units 05:17 05:00 05:00 WBC 6.7 (4.8-10.8) K/uL RBC 3.46 L (4.40-5.90) Mil/uL Hgb 10.6 L (12.0-18.0) g/dL Hct 32.3 L (35.0-51.0) % MCV 93.4 (80.0-94.0) fl MCH 30.6 (27.0-31.0) pg MCHC 32.8 L (33.0-37.0) g/dL RDW 15.4 H (11.5-14.5) % Plt Count 171 (130-400) K/uL pCO2 55 H (35-45) mm/Hg pO2 118 H (80-100) mm/Hg HCO3 34.5 H (21-28) mmol/L ABG pH 7.45 (7.35-7.45) ABG Total CO2 39.9 H (22-28) mmol/L ABG O2 Saturation 98.9 H (95-98) % ABG O2 Content 15.8 (15-23) ML/dL ABG Base Excess 12.3 H (-2.0-3.0) mmol/L ABG Hemoglobin 11.5 L (11.7-17.4) g/dL ABG Carboxyhemoglobin 0.8 (0.5-1.5) % POC ABG HHb (Measured) 1.1 (0.0-5.0) % ABG Methemoglobin 1.3 (0.0-3.0) % ABG O2 Capacity 16.0 (16-24) mL/dL Johan Test Yes A-a O2 Difference 98.0 mm/Hg Hgb O2 Saturation 96.7 (95.0-98.0) % Vent Mode Cpap FiO2 40.0 % PEEP 5 Pressure Support 15 Sodium 140 (132-148) mmol/l Potassium 4.1 (3.6-5.0) MMOL/L Chloride 101 (98-107) mmol/L Carbon Dioxide 35 H (22-30) mmol/L Anion Gap 8 L (10-20) BUN 30 H (9-20) mg/dl Creatinine 0.8 (0.8-1.5) mg/dl Est GFR ( Amer) > 60 Est GFR (Non-Af Amer) > 60 Random Glucose 199 H (75-110) mg/dL Calcium 8.3 L (8.4-10.2) mg/dL Procalcitonin (0.19-0.49) NG/ML Hepatitis A IgM Ab (NEGATIVE) Hep Bs Antigen (NEGATIVE) Hep B Core IgM Ab (NEGATIVE) Hepatitis C Antibody (NEGATIVE) HIV 1&2 Antibody Screen (NEGATIVE) 06/30/17 06/30/17 06/30/17 Range/Units 11:45 11:45 11:45 WBC (4.8-10.8) K/uL RBC (4.40-5.90) Mil/uL Hgb (12.0-18.0) g/dL Hct (35.0-51.0) % MCV (80.0-94.0) fl MCH (27.0-31.0) pg MCHC (33.0-37.0) g/dL RDW (11.5-14.5) % Plt Count (130-400) K/uL pCO2 (35-45) mm/Hg pO2 (80-100) mm/Hg HCO3 (21-28) mmol/L ABG pH (7.35-7.45) ABG Total CO2 (22-28) mmol/L ABG O2 Saturation (95-98) % ABG O2 Content (15-23) ML/dL ABG Base Excess (-2.0-3.0) mmol/L ABG Hemoglobin (11.7-17.4) g/dL ABG Carboxyhemoglobin (0.5-1.5) % POC ABG HHb (Measured) (0.0-5.0) % ABG Methemoglobin (0.0-3.0) % ABG O2 Capacity (16-24) mL/dL Johan Test A-a O2 Difference mm/Hg Hgb O2 Saturation (95.0-98.0) % Vent Mode FiO2 % PEEP Pressure Support Sodium (132-148) mmol/l Potassium (3.6-5.0) MMOL/L Chloride (98-107) mmol/L Carbon Dioxide (22-30) mmol/L Anion Gap (10-20) BUN (9-20) mg/dl Creatinine (0.8-1.5) mg/dl Est GFR ( Amer) Est GFR (Non-Af Amer) Random Glucose (75-110) mg/dL Calcium (8.4-10.2) mg/dL Procalcitonin < 0.05 L (0.19-0.49) NG/ML Hepatitis A IgM Ab Negative (NEGATIVE) Hep Bs Antigen Negative (NEGATIVE) Hep B Core IgM Ab Negative (NEGATIVE) Hepatitis C Antibody Negative (NEGATIVE) HIV 1&2 Antibody Screen Negative (NEGATIVE) Laboratory Results - last 24 hr 06/30/17 06/30/17 06/30/17 11:45 11:45 11:45 WBC RBC Hgb Hct MCV MCH MCHC RDW Plt Count pCO2 pO2 HCO3 ABG pH ABG Total CO2 ABG O2 Saturation ABG O2 Content ABG Base Excess ABG Hemoglobin ABG Carboxyhemoglobin POC ABG HHb (Measured) ABG Methemoglobin ABG O2 Capacity Johan Test A-a O2 Difference Hgb O2 Saturation Vent Mode FiO2 PEEP Pressure Support Sodium Potassium Chloride Carbon Dioxide Anion Gap BUN Creatinine Est GFR ( Amer) Est GFR (Non-Af Amer) Random Glucose Calcium Procalcitonin < 0.05 L Hepatitis A IgM Ab Negative Hep Bs Antigen Negative Hep B Core IgM Ab Negative Hepatitis C Antibody Negative HIV 1&2 Antibody Screen Negative 07/01/17 07/01/17 07/01/17 05:00 05:00 05:17 WBC 6.7 RBC 3.46 L Hgb 10.6 L Hct 32.3 L MCV 93.4 MCH 30.6 MCHC 32.8 L RDW 15.4 H Plt Count 171 pCO2 55 H pO2 118 H HCO3 34.5 H ABG pH 7.45 ABG Total CO2 39.9 H ABG O2 Saturation 98.9 H ABG O2 Content 15.8 ABG Base Excess 12.3 H ABG Hemoglobin 11.5 L ABG Carboxyhemoglobin 0.8 POC ABG HHb (Measured) 1.1 ABG Methemoglobin 1.3 ABG O2 Capacity 16.0 Johan Test Yes A-a O2 Difference 98.0 Hgb O2 Saturation 96.7 Vent Mode Cpap FiO2 40.0 PEEP 5 Pressure Support 15 Sodium 140 Potassium 4.1 Chloride 101 Carbon Dioxide 35 H Anion Gap 8 L BUN 30 H Creatinine 0.8 Est GFR ( Amer) > 60 Est GFR (Non-Af Amer) > 60 Random Glucose 199 H Calcium 8.3 L Procalcitonin Hepatitis A IgM Ab Hep Bs Antigen Hep B Core IgM Ab Hepatitis C Antibody HIV 1&2 Antibody Screen Assessment/Plan (1) Acute respiratory failure with hypercapnia Current Visit: Yes Status: Acute Priority: High Comment: Acute hypercarbic respiratory failure secondary to HCAP and COPD Tolerating CPAP trial, adequate saturation but low TV He was successfully extubated at 1:30PM Continue with ICU care for hemodynamic and Respiratory monitoring Continue IV Vancomycin, Cipro and Piperacillin Sod/Tazobactam IV antibiotics with IV Ceftriaxone and Azithromycin Will decrease IV Methylprednisolone to 60 mg IVPB Q 6H Continue nebulizer treatment Continue diuretics as needed Avoid alkalemia and hyperoxia. PRN Diuresis Strict I&O Aggressive pulmonary toilet, chest PT, suctioning (2) CAP (community acquired pneumonia) Current Visit: Yes Status: Acute Comment: Continue Azithromycin and Ceftriaxone. Blood/Urine and Tracheal aspirate negative (3) COPD exacerbation Current Visit: No Status: Acute Priority: High Comment: As per cute respiratory failure Schduled for CT angiogram to R/O acute PE ECHO to R/O Pulmonanary hypertension (4) DVT prophylaxis Current Visit: No Status: Acute (5) Hyperglycemia Current Visit: No Status: Acute (6) HTN (hypertension) Current Visit: No Status: Chronic Comment: Continue Diltiazem HCl (Cardizem) 30 mg PO TID
--- NOTE | 2017-07-01 14:12 | PCM.PROC ---
Procedures Attestation:: I certify that I have explained the specified Operation(s) or Procedure(s), risks, benefits and reasonable alternatives to the Patient and/or other person responsible. The opportunity was given to ask questions and all questions answered - Extubation Clinical Parameters: Resolution/Stabilization of disease process, Hemodynamically Stable, Intact Cough/Gag Reflex, Spontaneous Respirations, Acceptable Vent Settings (FIO2<50%, PEEP<8, PaO2>75, pH>7.25) Weaning Criteria Met: Yes General Weaning Approaches: Pressure Support Ventilation (PSV) Weaning Patient Condition: Patient has been successfully extubated and assessed Oxygen Therapy: O2 via Venti Mask Patient Tolerated Procedure: Well, No Complications
--- NOTE | 2017-07-01 14:20 | CP.PCM.PN ---
Subjective - Date & Time of Evaluation Date of Evaluation: 07/01/17 Time of Evaluation: 11:40 - Subjective Subjective: F/U Acute Respiratory failure. Intubated , aware of his family at bedside Objective - Vital Signs/Intake and Output Vital Signs (last 24 hours): Temp Pulse Resp BP Pulse Ox 98.7 F 104 H 23 126/71 97 07/01/17 12:00 07/01/17 12:00 07/01/17 12:00 07/01/17 12:00 07/01/17 12:00 Intake and Output: 07/01/17 07/01/17 06:59 18:59 Intake Total 400 Output Total 450 Balance -50 - Medications Medications: Current Medications Acetaminophen (Tylenol 325mg Tab) 650 mg PO Q6H PRN PRN Reason: Pain, Mild (1-3) Last Admin: 06/26/17 01:06 Dose: 650 mg Albuterol/Ipratropium (Duoneb 3 Mg/0.5 Mg (3 Ml) Ud) 3 ml INH RQ4 [facility] Last Admin: 07/01/17 11:21 Dose: 3 ml Aripiprazole (Abilify) 2 mg PO HS [facility] Last Admin: 06/30/17 22:31 Dose: 2 mg Diltiazem HCl (Cardizem) 30 mg PO TID [facility] Last Admin: 07/01/17 09:30 Dose: 30 mg Enoxaparin Sodium (Lovenox) 40 mg SC DAILY [facility] PRN Reason: Protocol Last Admin: 07/01/17 09:30 Dose: 40 mg Folic Acid (Folic Acid) 1 mg PO DAILY [facility] Last Admin: 07/01/17 09:30 Dose: 1 mg Azithromycin 500 mg/ Sodium (Chloride) 250 mls @ 250 mls/hr IVPB DAILY [facility] PRN Reason: Protocol Last Admin: 07/01/17 10:37 Dose: 250 mls/hr Ceftriaxone Sodium (Rocephin Iv 1 Gm Duplex) 50 mls @ 50 mls/hr IVPB DAILY [facility] PRN Reason: Protocol Last Admin: 07/01/17 10:36 Dose: 50 mls/hr Metronidazole (Flagyl 500mg/100ml Ns) 100 mls @ 100 mls/hr IVPB Q8 [facility] PRN Reason: Protocol Last Admin: 07/01/17 10:38 Dose: 100 mls/hr Methylprednisolone (Solu-Medrol) 60 mg IV Q6 [facility] Last Admin: 07/01/17 10:47 Dose: 60 mg Mirtazapine (Remeron) 15 mg PO HS [facility] Last Admin: 06/30/17 22:30 Dose: 15 mg Pantoprazole Sodium (Protonix Ec Tab) 40 mg PO DAILY [facility] Last Admin: 07/01/17 09:30 Dose: 40 mg Thiamine HCl (Vitamin B1 Tab) 50 mg PO DAILY [facility] Last Admin: 07/01/17 10:37 Dose: 50 mg Venlafaxine HCl (Effexor Xr) 150 mg PO DAILY [facility] Last Admin: 07/01/17 09:30 Dose: 150 mg - Labs Labs: 07/01/17 05:00 07/01/17 05:00 PT 11.0 Seconds (9.8-13.1) 06/25/17 17:50 INR 1.0 (0.9-1.2) 06/25/17 17:50 APTT 28.2 Seconds (25.6-37.1) 06/25/17 17:50 - Constitutional Appears: No Acute Distress - Head Exam Head Exam: NORMAL INSPECTION - Eye Exam Eye Exam: PERRL - ENT Exam Additional comments: intubated - Respiratory Exam Respiratory Exam: Rhonchi (scattered) - GI/Abdominal Exam GI & Abdominal Exam: Soft, Normal Bowel Sounds - Neurological Exam Neurological Exam: Awake Additional comments: follows commands , moves all extremities - Skin Skin Exam: Warm Assessment and Plan (1) Acute respiratory failure with hypercapnia Status: Resolved (2) CAP (community acquired pneumonia) Status: Acute (3) COPD exacerbation Status: Acute (4) Pleural effusion, bilateral Status: Acute - Assessment and Plan (Free Text) Plan: For extubation today , continue Solu Medrol , Zithromax , Flagyl , DuoNeb. ICU Time: 40 min.
--- NOTE | 2017-07-01 14:59 | CARD ---
APPROVED REPORT EXAM: Two-dimensional and M-mode echocardiogram with Doppler and color Doppler. Other Information Quality : FairRhythm : NSR Technically limited study due to Pt on Vent. INDICATION Pulmonary Hypertention 2D DIMENSIONS IVSd0.87 (0.7-1.1cm)LVDd4.65 (3.9-5.9cm) LVOT Diameter1.95 (1.8-2.4cm)PWd0.87 (0.7-1.1cm) IVSs1.41 (0.8-1.2cm)LVDs3.17 (2.5-4.0cm) FS (%) 31.8 %PWs1.11 (0.8-1.2cm) M-Mode DIMENSIONS Left Atrium (MM)3.72 (2.5-4.0cm)IVSd0.84 (0.7-1.1cm) Aortic Root3.53 (2.2-3.7cm)LVDd4.81 (4.0-5.6cm) Aortic Cusp Exc.2.16 (1.5-2.0cm)PWd1.34 (0.7-1.1cm) IVSs1.09 cmFS (%) 23 % LVDs3.69 (2.0-3.8cm)PWs1.19 cm Mitral Valve MV E Ebtshhmi10.3cm/sMV DECEL [id number] A Lniqsrez48.8cm/s MV ZWQ53ooF/A ratio1.0MVA (PHT)3.00cm2 TDI E/Lateral E'0.0E/Medial E'0.0 Pulmonary Valve PV Peak Ujniwhqe97.4cm/s Tricuspid Valve TR Peak Itkwguqp335mp/sRAP [id number] Peak Gr.5mmHg [id number] LEFT VENTRICLE The left ventricle is normal size. There is normal left ventricular wall thickness. The left ventricular function is normal. The left ventricular ejection fraction is within the normal range. The Ejection Fraction is 55-60%. There is normal LV segmental wall motion. Transmitral Doppler flow pattern is Grade I-abnormal relaxation pattern.l. RIGHT VENTRICLE The right ventricle is normal size. The right ventricular systolic function is normal. ATRIA The left atrium size is normal. The right atrium size is normal. AORTIC VALVE The aortic valve is normal in structure. No aortic regurgitation is present. There is no aortic valvular stenosis. MITRAL VALVE The mitral valve is normal in structure. There is no mitral valve stenosis. There is no mitral valve regurgitation noted. TRICUSPID VALVE The tricuspid valve is normal in structure. There is no tricuspid valve regurgitation noted. Right ventricular systolic pressure is estimated at 15 mmHg. There is no tricuspid valve stenosis. PULMONIC VALVE The pulmonary valve is normal in structure. There is no pulmonic valvular regurgitation. GREAT VESSELS The aortic root is normal in size. The IVC is normal in size and collapses >50% with inspiration. PERICARDIAL EFFUSION The pericardium appears normal. <Conclusion> The left ventricle is normal size. The left ventricular function is normal. The left ventricular ejection fraction is within the normal range. The Ejection Fraction is 55-60%.
[2017-07-02] MEDS: Albuterol-Ipratrop 3 mg / 0.5 (3 ml) UD INH SCH ×6 (00:11→20:01)
[2017-07-02] MEDS: metroNIDAZOLE 500mg/100ml NS 100 ML IVPB SCH ×3 (00:32→16:25)
[2017-07-02 05:27] LABS: BASO % 0.1 % (0.0-2.0); HEMOGLOBIN 11.7 g/dL (12.0-18.0); LYMPH # 0.4 K/uL (1.0-4.3); LYMPH % 4.5 % (20.0-40.0); MEAN CELL VOLUME 93.5 fl (80.0-94.0); MEAN CORPUSCULAR HEMOGLOBIN 30.8 pg (27.0-31.0); MEAN CORPUSCULAR HGB CONC 32.9 g/dL (33.0-37.0); MEAN PLATELET VOLUME 8.2 fl (7.2-11.7); MONO # 0.4 K/uL (0.0-0.8); MONO % 4.5 % (0.0-10.0); NEUT # 8.5 K/uL (1.8-7.0); NEUT % 90.9 % (50.0-75.0); NRBC % 0.2 % (0.0-0.0); PLATELET COUNT 189 K/uL (130-400); RED CELL DISTRIBUTION WIDTH 15.4 % (11.5-14.5); WHITE BLOOD COUNT 9.3 K/uL (4.8-10.8)
[2017-07-02 05:55] LABS: ALB/GLOB RATIO 1.1 (1.0-2.1); ALBUMIN 3.4 g/dL (3.5-5.0); ALT/SGPT 57 U/L (21-72); AST/SGOT 23 U/L (17-59); BLOOD UREA NITROGEN 28 mg/dl (9-20); CALCIUM 8.3 mg/dL (8.4-10.2); GFR AFRICAN-AMERICAN > 60; GFR NON-AFRICAN AMERICAN > 60
--- NOTE | 2017-07-02 07:49 | CP.PCM.PN ---
<Shannon Dumont - Last Filed: 07/02/17 07:50> Subjective - Date & Time of Evaluation Date of Evaluation: 07/02/17 Time of Evaluation: 07:00 - Subjective Subjective: General Surgery Dr. Butler Pt S&E @bedside. Pt extuabted yesterday, RONNIE. denies abd pain, N/V, F/C. (+)BM Objective - Vital Signs/Intake and Output Vital Signs (last 24 hours): Temp Pulse Resp BP Pulse Ox 98.7 F 96 H 14 157/98 H 95 07/02/17 04:00 07/02/17 06:00 07/02/17 06:00 07/02/17 06:00 07/02/17 06:00 Intake and Output: 07/02/17 07/02/17 06:59 18:59 Intake Total 280 Output Total 1000 Balance -720 - Medications Medications: Current Medications Acetaminophen (Tylenol 325mg Tab) 650 mg PO Q6H PRN PRN Reason: Pain, Mild (1-3) Last Admin: 06/26/17 01:06 Dose: 650 mg Albuterol/Ipratropium (Duoneb 3 Mg/0.5 Mg (3 Ml) Ud) 3 ml INH RQ4 [facility] Last Admin: 07/02/17 04:06 Dose: 3 ml Aripiprazole (Abilify) 2 mg PO HS [facility] Last Admin: 07/01/17 21:02 Dose: 2 mg Diltiazem HCl (Cardizem) 30 mg PO TID [facility] Last Admin: 07/01/17 18:09 Dose: 30 mg Enoxaparin Sodium (Lovenox) 40 mg SC DAILY [facility] PRN Reason: Protocol Last Admin: 07/01/17 09:30 Dose: 40 mg Folic Acid (Folic Acid) 1 mg PO DAILY [facility] Last Admin: 07/01/17 09:30 Dose: 1 mg Azithromycin 500 mg/ Sodium (Chloride) 250 mls @ 250 mls/hr IVPB DAILY [facility] PRN Reason: Protocol Last Admin: 07/01/17 10:37 Dose: 250 mls/hr Ceftriaxone Sodium (Rocephin Iv 1 Gm Duplex) 50 mls @ 50 mls/hr IVPB DAILY [facility] PRN Reason: Protocol Last Admin: 07/01/17 10:36 Dose: 50 mls/hr Metronidazole (Flagyl 500mg/100ml Ns) 100 mls @ 100 mls/hr IVPB Q8 [facility] PRN Reason: Protocol Last Admin: 07/02/17 00:32 Dose: 100 mls/hr Methylprednisolone (Solu-Medrol) 60 mg IV Q6 [facility] Last Admin: 07/02/17 04:38 Dose: 60 mg Mirtazapine (Remeron) 15 mg PO HS [facility] Last Admin: 07/01/17 21:01 Dose: 15 mg Pantoprazole Sodium (Protonix Ec Tab) 40 mg PO DAILY [facility] Last Admin: 07/01/17 09:30 Dose: 40 mg Thiamine HCl (Vitamin B1 Tab) 50 mg PO DAILY [facility] Last Admin: 07/01/17 10:37 Dose: 50 mg Venlafaxine HCl (Effexor Xr) 150 mg PO DAILY [facility] Last Admin: 07/01/17 09:30 Dose: 150 mg - Labs Labs: 07/02/17 04:15 07/02/17 04:15 PT 11.0 Seconds (9.8-13.1) 06/25/17 17:50 INR 1.0 (0.9-1.2) 06/25/17 17:50 APTT 28.2 Seconds (25.6-37.1) 06/25/17 17:50 - Constitutional Appears: Non-toxic, No Acute Distress - Head Exam Head Exam: NORMAL INSPECTION - Eye Exam Eye Exam: Normal appearance - ENT Exam ENT Exam: Mucous Membranes Moist - Respiratory Exam Respiratory Exam: NORMAL BREATHING PATTERN. absent: Accessory Muscle Use, Respiratory Distress - GI/Abdominal Exam GI & Abdominal Exam: Soft. absent: Guarding, Tenderness, Rebound - Back Exam Back Exam: NORMAL INSPECTION - Neurological Exam Neurological Exam: Alert, Awake - Psychiatric Exam Psychiatric exam: Normal Affect, Normal Mood - Skin Skin Exam: Dry, Intact, Normal Color, Warm Assessment and Plan - Assessment and Plan (Free Text) Assessment: 77 y/o M w/ respiratory failure 2/2 COPD exacerbation. Surgery consulted for abd distention and possible appendicitis - pt afebrile; no abd pain; no leukocytosis; on CT, air in appendix --> unlikely appendicitis - cont IV Abx - Cont medical management per Critical Care and PMD - no surgical intervention at this time - please re-consult if needed Pt discussed w/ Dr. Luke Dumont DO PGY2 <Juarez Butler - Last Filed: 07/06/17 18:48> Objective - Vital Signs/Intake and Output Vital Signs (last 24 hours): Temp Pulse Resp BP Pulse Ox 99.1 F 90 20 101/55 L 91 L 07/06/17 17:08 07/06/17 17:08 07/06/17 17:08 07/06/17 17:08 07/06/17 17:08 - Medications Medications: Current Medications Acetaminophen (Tylenol 325mg Tab) 650 mg PO Q6H PRN PRN Reason: Pain, Mild (1-3) Last Admin: 06/26/17 01:06 Dose: 650 mg Aripiprazole (Abilify) 2 mg PO HS [facility] Last Admin: 07/05/17 21:29 Dose: 2 mg Diltiazem HCl (Cardizem) 30 mg PO TID [facility] Last Admin: 07/06/17 16:33 Dose: 30 mg Folic Acid (Folic Acid) 1 mg PO DAILY [facility] Last Admin: 07/06/17 08:49 Dose: 1 mg Metronidazole (Flagyl 500mg/100ml Ns) 100 mls @ 100 mls/hr IVPB Q8 [facility] PRN Reason: Protocol Last Admin: 07/06/17 16:31 Dose: 100 mls/hr Lactulose (Enulose) 20 gm PO BID PRN PRN Reason: Constipation Last Admin: 07/05/17 08:40 Dose: 20 gm Mirtazapine (Remeron) 15 mg PO HS [facility] Last Admin: 07/05/17 21:29 Dose: 15 mg Pantoprazole Sodium (Protonix Ec Tab) 40 mg PO DAILY [facility] Last Admin: 07/06/17 08:49 Dose: 40 mg Thiamine HCl (Vitamin B1 Tab) 50 mg PO DAILY [facility] Last Admin: 07/06/17 08:49 Dose: 50 mg Venlafaxine HCl (Effexor Xr) 150 mg PO DAILY [facility] Last Admin: 07/06/17 08:49 Dose: 150 mg - Labs Labs: 07/06/17 05:50 07/06/17 05:50 PT 11.0 Seconds (9.8-13.1) 06/25/17 17:50 INR 1.0 (0.9-1.2) 06/25/17 17:50 APTT 28.2 Seconds (25.6-37.1) 06/25/17 17:50 Attending/Attestation - Attestation I have personally seen and examined this patient.: Yes I have fully participated in the care of the patient.: Yes I have reviewed all pertinent clinical information, including history, physical exam and plan: Yes Notes (Text): Pt was seen and examined at bedside Agree with above note and assessment Pt is tolerating reg diet, No Abdominal Pain No abdominal tenderness Enema C/w current mx No acute general surgical intervention required at present f.u as outpt Plan d.w pt in detail Risk and benefit explained in detail.
[2017-07-02] MEDS: Enoxaparin 40 mg Syringe SC SCH (08:43)
[2017-07-02] MEDS: Venlafaxine 150 mg ER Cap PO SCH (08:45)
[2017-07-02] MEDS: CYANOCOBALAMIN (VITAMIN B-12) 250 MCG TABLET PO SCH (08:45)
[2017-07-02] MEDS: Pantoprazole 40 mg EC Tab PO SCH (08:45)
[2017-07-02] MEDS: cefTRIAXone IV 1 gm in Dextros 50 ML IVPB SCH (08:47)
[2017-07-02] MEDS: Azithromycin 500 MG in Sodium Chloride 0.9% 250 ML IVPB SCH (10:39)
[2017-07-02 10:41] LABS: BANDS 2 % (0-2); LYMPHOCYTE 4 % (20-50); METAMYELOCYTE 2 % (0-0); MONOCYTE 7 % (0-10); MYELOCYTE 1 % (0-0); NEUTROPHIL 84 % (42-75); PLATELET ESTIMATE NORMAL (NORMAL); TOTAL CELLS COUNTED 100
[2017-07-02 10:42] LABS: ANISOCYTOSIS SLIGHT; HYPOCHROMIC SLIGHT; TOXIC GRANULATION PRESENT
--- NOTE | 2017-07-02 14:21 | CP.PCM.PN ---
Subjective - Date & Time of Evaluation Date of Evaluation: 07/02/17 Time of Evaluation: 09:00 - Subjective Subjective: awake alert extubated NAD Objective - Vital Signs/Intake and Output Vital Signs (last 24 hours): Temp Pulse Resp BP Pulse Ox 97.4 F L 95 H 17 146/68 100 07/02/17 12:00 07/02/17 14:00 07/02/17 14:00 07/02/17 14:00 07/02/17 14:00 Intake and Output: 07/02/17 07/02/17 06:59 18:59 Intake Total 280 880 Output Total 1000 300 Balance -720 580 - Medications Medications: Current Medications Acetaminophen (Tylenol 325mg Tab) 650 mg PO Q6H PRN PRN Reason: Pain, Mild (1-3) Last Admin: 06/26/17 01:06 Dose: 650 mg Albuterol/Ipratropium (Duoneb 3 Mg/0.5 Mg (3 Ml) Ud) 3 ml INH RQ4 [facility] Last Admin: 07/02/17 11:33 Dose: 3 ml Aripiprazole (Abilify) 2 mg PO HS [facility] Last Admin: 07/01/17 21:02 Dose: 2 mg Diltiazem HCl (Cardizem) 30 mg PO TID [facility] Last Admin: 07/02/17 12:15 Dose: 30 mg Enoxaparin Sodium (Lovenox) 40 mg SC DAILY [facility] PRN Reason: Protocol Last Admin: 07/02/17 08:43 Dose: 40 mg Folic Acid (Folic Acid) 1 mg PO DAILY [facility] Last Admin: 07/02/17 09:35 Dose: 1 mg Azithromycin 500 mg/ Sodium (Chloride) 250 mls @ 250 mls/hr IVPB DAILY [facility] PRN Reason: Protocol Last Admin: 07/02/17 10:39 Dose: 250 mls/hr Ceftriaxone Sodium (Rocephin Iv 1 Gm Duplex) 50 mls @ 50 mls/hr IVPB DAILY [facility] PRN Reason: Protocol Last Admin: 07/02/17 08:47 Dose: 50 mls/hr Metronidazole (Flagyl 500mg/100ml Ns) 100 mls @ 100 mls/hr IVPB Q8 [facility] PRN Reason: Protocol Last Admin: 07/02/17 09:34 Dose: 100 mls/hr Methylprednisolone (Solu-Medrol) 60 mg IV Q6 [facility] Last Admin: 07/02/17 09:32 Dose: 60 mg Mirtazapine (Remeron) 15 mg PO HS [facility] Last Admin: 07/01/17 21:01 Dose: 15 mg Pantoprazole Sodium (Protonix Ec Tab) 40 mg PO DAILY [facility] Last Admin: 07/02/17 08:45 Dose: 40 mg Thiamine HCl (Vitamin B1 Tab) 50 mg PO DAILY [facility] Last Admin: 07/02/17 12:16 Dose: 50 mg Venlafaxine HCl (Effexor Xr) 150 mg PO DAILY [facility] Last Admin: 07/02/17 08:45 Dose: 150 mg - Labs Labs: 07/02/17 04:15 07/02/17 04:15 PT 11.0 Seconds (9.8-13.1) 06/25/17 17:50 INR 1.0 (0.9-1.2) 06/25/17 17:50 APTT 28.2 Seconds (25.6-37.1) 06/25/17 17:50 - Constitutional Appears: Non-toxic, Chronically Ill - Head Exam Head Exam: NORMOCEPHALIC - Eye Exam Eye Exam: PERRL Pupil Exam: PERRL - ENT Exam ENT Exam: Mucous Membranes Dry - Neck Exam Neck Exam: absent: Lymphadenopathy - Respiratory Exam Respiratory Exam: Decreased Breath Sounds - Cardiovascular Exam Cardiovascular Exam: REGULAR RHYTHM - GI/Abdominal Exam GI & Abdominal Exam: Distended, Soft - Rectal Exam Rectal Exam: Deferred - Exam Exam: NORMAL INSPECTION - Extremities Exam Extremities Exam: absent: Pedal Edema - Back Exam Back Exam: absent: CVA tenderness (L), CVA tenderness (R) - Neurological Exam Neurological Exam: Alert, Awake, CN II-XII Intact, Oriented x3 - Psychiatric Exam Psychiatric exam: Normal Mood - Skin Skin Exam: Dry Assessment and Plan (1) Acute respiratory failure with hypercapnia Status: Acute (2) CAP (community acquired pneumonia) Status: Acute (3) Pleural effusion, bilateral Status: Acute (4) COPD exacerbation Status: Acute (5) HTN (hypertension) Status: Chronic - Assessment and Plan (Free Text) Assessment: cont iv rx meds reordered
--- NOTE | 2017-07-02 16:38 | CP.PCM.PN ---
Subjective - Date & Time of Evaluation Date of Evaluation: 07/02/17 Time of Evaluation: 10:00 - Subjective Subjective: F/U Acute Respiratory Failure. Extubated yesterday , no AD , Patient's family at bedside Objective - Vital Signs/Intake and Output Vital Signs (last 24 hours): Temp Pulse Resp BP Pulse Ox 98.5 F 99 H 18 126/78 95 07/02/17 16:00 07/02/17 16:24 07/02/17 16:24 07/02/17 16:24 07/02/17 16:24 Intake and Output: 07/02/17 07/02/17 06:59 18:59 Intake Total 280 1240 Output Total 1000 300 Balance -720 940 - Medications Medications: Current Medications Acetaminophen (Tylenol 325mg Tab) 650 mg PO Q6H PRN PRN Reason: Pain, Mild (1-3) Last Admin: 06/26/17 01:06 Dose: 650 mg Albuterol/Ipratropium (Duoneb 3 Mg/0.5 Mg (3 Ml) Ud) 3 ml INH RQ4 [facility] Last Admin: 07/02/17 16:16 Dose: 3 ml Aripiprazole (Abilify) 2 mg PO HS [facility] Last Admin: 07/01/17 21:02 Dose: 2 mg Diltiazem HCl (Cardizem) 30 mg PO TID [facility] Last Admin: 07/02/17 16:24 Dose: 30 mg Enoxaparin Sodium (Lovenox) 40 mg SC DAILY [facility] PRN Reason: Protocol Last Admin: 07/02/17 08:43 Dose: 40 mg Folic Acid (Folic Acid) 1 mg PO DAILY [facility] Last Admin: 07/02/17 09:35 Dose: 1 mg Azithromycin 500 mg/ Sodium (Chloride) 250 mls @ 250 mls/hr IVPB DAILY [facility] PRN Reason: Protocol Last Admin: 07/02/17 10:39 Dose: 250 mls/hr Ceftriaxone Sodium (Rocephin Iv 1 Gm Duplex) 50 mls @ 50 mls/hr IVPB DAILY [facility] PRN Reason: Protocol Last Admin: 07/02/17 08:47 Dose: 50 mls/hr Metronidazole (Flagyl 500mg/100ml Ns) 100 mls @ 100 mls/hr IVPB Q8 [facility] PRN Reason: Protocol Last Admin: 07/02/17 16:25 Dose: 100 mls/hr Methylprednisolone (Solu-Medrol) 60 mg IV Q6 [facility] Last Admin: 07/02/17 15:42 Dose: 60 mg Mirtazapine (Remeron) 15 mg PO HS [facility] Last Admin: 07/01/17 21:01 Dose: 15 mg Pantoprazole Sodium (Protonix Ec Tab) 40 mg PO DAILY [facility] Last Admin: 07/02/17 08:45 Dose: 40 mg Thiamine HCl (Vitamin B1 Tab) 50 mg PO DAILY [facility] Last Admin: 07/02/17 12:16 Dose: 50 mg Venlafaxine HCl (Effexor Xr) 150 mg PO DAILY [facility] Last Admin: 07/02/17 08:45 Dose: 150 mg - Labs Labs: 07/02/17 04:15 07/02/17 04:15 PT 11.0 Seconds (9.8-13.1) 06/25/17 17:50 INR 1.0 (0.9-1.2) 06/25/17 17:50 APTT 28.2 Seconds (25.6-37.1) 06/25/17 17:50 - Constitutional Appears: No Acute Distress - Head Exam Head Exam: NORMAL INSPECTION - Eye Exam Eye Exam: PERRL - ENT Exam ENT Exam: Normal Exam - Neck Exam Neck Exam: Normal Inspection - Respiratory Exam Respiratory Exam: Rhonchi (scatterd) - Cardiovascular Exam Cardiovascular Exam: REGULAR RHYTHM - GI/Abdominal Exam GI & Abdominal Exam: Soft, Normal Bowel Sounds - Extremities Exam Extremities Exam: Normal Inspection - Back Exam Back Exam: NORMAL INSPECTION - Neurological Exam Neurological Exam: Awake Additional comments: Follows commands, moves all extremities. - Psychiatric Exam Psychiatric exam: Anxious - Skin Skin Exam: Warm Assessment and Plan (1) Acute respiratory failure with hypercapnia Status: Resolved (2) CAP (community acquired pneumonia) Status: Acute (3) COPD exacerbation Status: Acute (4) Pleural effusion, bilateral Status: Acute - Assessment and Plan (Free Text) Plan: Continue Zithromax , Flagy , Rocephin , Solu Medrol , DuoNeb and rest of treatment
--- NOTE | 2017-07-02 19:06 | CP.CCUPN ---
CCU Subjective - Physician Review Subjective (Free Text): Awake and OOB to chair this AM, fair tolerance to PT; Physical therapist noted desaturation to 80s % during active PT and movement, but no other symptoms reported, nor was there any recurrence of this later on during the day. Otherwise resp status has been stable since extubation yesterday and he is on nasal cannula 3 LPM with 95% SPO2. He denies any chest discomfort, nor SOB at bed rest. Other vitals, and I/Os reviewed. ROS: No other pertinent negs or positives on 10+ system review. PMSFH: All other Nursing and physician documentation reviewed to date; no new pertinent info noted relevant to current medical problems. IMPRESSION / MAJOR PROBLEMS NOW: 1. Acute Hypercapneic Resp Failure2 Atelectasis with COPD Exacerbation / bronchitis, and pneumonia 2. Ileus 3. Azotemia / Dehydration PLAN: 1. Check repeat CXR. 2. Incentive Spirometry 3. Duonebs, ongoing IV steroids, IVF hydration. No evidence of any decompensated heart failure nor fluid overload state. 4. Surgical f/u noted, no intervention at this time beyond conservative measures and repeat f/u as an outpatient. 5. Stable for Stepdown bed. CCU Objective - Vital Signs / Intake & Output Vital Signs (Last 4 hours): Vital Signs Temp Pulse Resp BP Pulse Ox 07/02/17 18:00 102 H 18 124/64 94 L 07/02/17 17:00 103 H 19 130/75 94 L 07/02/17 16:24 99 H 18 126/78 95 07/02/17 16:00 98.5 F 93 H 18 126/78 96 Intake and Output (Last 8hrs): Intake & Output 07/02/17 07/02/17 07/02/17 06:59 14:59 22:59 Intake Total 280 880 820 Output Total 1000 300 150 Balance -720 580 670 Intake: Intake, Piggyback 100 400 100 Oral 180 480 720 Output: Urine 1000 300 150 Urethral (Cormier) 1000 300 Urine, Voided 150 Other: # Voids Urethral (Cormier) 1 - Physical Exam Head: Positive for: Atraumatic, Normocephalic Pupils: Positive for: PERRL. Negative for: Sluggish, Non-Reactive, Pinpoint Extroacular Muscles: Positive for: EOMI. Negative for: Gaze Palsy, Entrapment Conjunctiva: Positive for: Normal. Negative for: Injected, Icteric Mouth: Positive for: Moist Mucous Membranes Nose (Internal): Positive for: Normal Inspection Neck: Positive for: Normal Range of Motion, Trachea Midline. Negative for: Meningeal Signs, MIDLINE TENDERNESS, Paraspinal Tenderness, JVD, Lymphadenopathy , Bruit, Other Respiratory/Chest: Positive for: Wheezes, Decreased Breath Sounds, Rhonchi. Negative for: Clear to Auscultation, Good Air Exchange, Respiratory Distress, Accessory Muscle Use, Tachypneic, Tender to Palpation Cardiovascular: Positive for: Regular Rate and Rhythm, Normal S1, S2, Peripheal Pulses Present, Tachycardic. Negative for: Murmurs, Irregular Rhythm, Bradycardic Abdomen: Positive for: Distention, Normal Bowel Sounds. Negative for: Tenderness, Peritoneal Signs, Rebound, Guarding, Mass/Organomegaly Back: Negative for: CVA Tenderness Upper Extremity: Positive for: Normal Inspection, NORMAL PULSES, Capillary Refill < 2s. Negative for: Cyanosis, Edema Lower Extremity: Positive for: Normal Inspection, NORMAL PULSES, Capillary Refill < 2 s. Negative for: Edema, CALF TENDERNESS Skin: Positive for: Warm, Dry. Negative for: Rashes Psychiatric: Positive for: Alert, Oriented x 3 - Medications Active Medications: Active Medications Generic Name Dose Route Start Last Admin Trade Name Freq PRN Reason Stop Dose Admin Acetaminophen 650 mg 06/25/17 23:04 06/26/17 01:06 Tylenol 325mg Tab PO 650 mg Q6H PRN Administration Pain, Mild (1-3) Albuterol/Ipratropium 3 ml 06/29/17 16:00 07/02/17 16:16 Duoneb 3 Mg/0.5 Mg (3 Ml) Ud INH 3 ml RQ4 [facility] Administration Aripiprazole 2 mg 06/25/17 23:15 07/01/17 21:02 Abilify PO 2 mg HS [facility] Administration Diltiazem HCl 30 mg 06/27/17 17:00 07/02/17 16:24 Cardizem PO 30 mg TID [facility] Administration Enoxaparin Sodium 40 mg 06/30/17 11:00 07/02/17 08:43 Lovenox SC 40 mg DAILY [facility] Administration Protocol Folic Acid 1 mg 06/26/17 09:00 07/02/17 09:35 Folic Acid PO 1 mg DAILY [facility] Administration Azithromycin 500 mg/ Sodium 250 mls @ 250 mls/hr 06/26/17 09:00 07/02/17 10: 39 Chloride IVPB 250 mls/hr DAILY [facility] Administration Protocol Ceftriaxone Sodium 50 mls @ 50 mls/hr 07/01/17 09:00 07/02/17 08:47 Rocephin Iv 1 Gm Duplex IVPB 50 mls/hr DAILY [facility] Administration Protocol Metronidazole 100 mls @ 100 mls/hr 07/01/17 09:00 07/02/17 16:25 Flagyl 500mg/100ml Ns IVPB 100 mls/hr Q8 [facility] Administration Protocol Methylprednisolone 60 mg 06/26/17 04:00 07/02/17 15:42 Solu-Medrol IV 60 mg Q6 [facility] Administration Mirtazapine 15 mg 06/25/17 23:15 07/01/17 21:01 Remeron PO 15 mg HS [facility] Administration Pantoprazole Sodium 40 mg 06/26/17 09:00 07/02/17 08:45 Protonix Ec Tab PO 40 mg DAILY [facility] Administration Thiamine HCl 50 mg 06/26/17 09:00 07/02/17 12:16 Vitamin B1 Tab PO 50 mg DAILY [facility] Administration Venlafaxine HCl 150 mg 06/26/17 09:00 07/02/17 08:45 Effexor Xr PO 150 mg DAILY [facility] Administration - Patient Studies Lab Studies: Lab Studies 07/02/17 07/02/17 Range/Units 04:15 04:15 WBC 9.3 (4.8-10.8) K/uL RBC 3.80 L (4.40-5.90) Mil/uL Hgb 11.7 L (12.0-18.0) g/dL Hct 35.5 (35.0-51.0) % MCV 93.5 (80.0-94.0) fl MCH 30.8 (27.0-31.0) pg MCHC 32.9 L (33.0-37.0) g/dL RDW 15.4 H (11.5-14.5) % Plt Count 189 (130-400) K/uL MPV 8.2 (7.2-11.7) fl Neut % (Auto) 90.9 H (50.0-75.0) % Lymph % (Auto) 4.5 L (20.0-40.0) % [place] % (Auto) 4.5 (0.0-10.0) % Eos % (Auto) 0.0 (0.0-4.0) % Baso % (Auto) 0.1 (0.0-2.0) % Neut # (Auto) 8.5 H (1.8-7.0) K/uL Lymph # (Auto) 0.4 L (1.0-4.3) K/uL [place] # (Auto) 0.4 (0.0-0.8) K/uL Eos # (Auto) 0.0 (0.0-0.7) K/uL Baso # (Auto) 0.0 (0.0-0.2) K/uL Neutrophils % (Manual) 84 H (42-75) % Band Neutrophils % 2 (0-2) % Lymphocytes % (Manual) 4 L (20-50) % Monocytes % (Manual) 7 (0-10) % Metamyelocytes % 2 H (0-0) % Myelocytes % 1 H (0-0) % Toxic Granulation Present Platelet Estimate Normal (NORMAL) Hypochromasia (manual) Slight Anisocytosis (manual) Slight Sodium 141 (132-148) mmol/l Potassium 4.2 (3.6-5.0) MMOL/L Chloride 103 (98-107) mmol/L Carbon Dioxide 32 H (22-30) mmol/L Anion Gap 10 (10-20) BUN 28 H (9-20) mg/dl Creatinine 0.7 L (0.8-1.5) mg/dl Est GFR ( Amer) > 60 Est GFR (Non-Af Amer) > 60 Random Glucose 167 H (75-110) mg/dL Calcium 8.3 L (8.4-10.2) mg/dL Total Bilirubin 0.6 (0.2-1.3) mg/dl AST 23 (17-59) U/L ALT 57 (21-72) U/L Alkaline Phosphatase 41 (38-126) U/L Total Protein 6.4 (6.3-8.2) G/DL Albumin 3.4 L (3.5-5.0) g/dL Globulin 3.0 (2.2-3.9) gm/dL Albumin/Globulin Ratio 1.1 (1.0-2.1) Laboratory Results - last 24 hr 07/02/17 07/02/17 04:15 04:15 WBC 9.3 RBC 3.80 L Hgb 11.7 L Hct 35.5 MCV 93.5 MCH 30.8 MCHC 32.9 L RDW 15.4 H Plt Count 189 MPV 8.2 Neut % (Auto) 90.9 H Lymph % (Auto) 4.5 L [place] % (Auto) 4.5 Eos % (Auto) 0.0 Baso % (Auto) 0.1 Neut # (Auto) 8.5 H Lymph # (Auto) 0.4 L [place] # (Auto) 0.4 Eos # (Auto) 0.0 Baso # (Auto) 0.0 Neutrophils % (Manual) 84 H Band Neutrophils % 2 Lymphocytes % (Manual) 4 L Monocytes % (Manual) 7 Metamyelocytes % 2 H Myelocytes % 1 H Toxic Granulation Present Platelet Estimate Normal Hypochromasia (manual) Slight Anisocytosis (manual) Slight Sodium 141 Potassium 4.2 Chloride 103 Carbon Dioxide 32 H Anion Gap 10 BUN 28 H Creatinine 0.7 L Est GFR ( Amer) > 60 Est GFR (Non-Af Amer) > 60 Random Glucose 167 H Calcium 8.3 L Total Bilirubin 0.6 AST 23 ALT 57 Alkaline Phosphatase 41 Total Protein 6.4 Albumin 3.4 L Globulin 3.0 Albumin/Globulin Ratio 1.1 Review of Systems - Review of Systems All systems: reviewed and no additional remarkable complaints except (as above)
--- NOTE | 2017-07-03 00:32 | CP.PCM.PN ---
Subjective - Date & Time of Evaluation Date of Evaluation: 06/28/17 Time of Evaluation: 15:00 - Subjective Subjective: Patient still with SOB, cough, chest tightness. Denies cp, fever, chills. 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 Objective - Vital Signs/Intake and Output Vital Signs (last 24 hours): Temp Pulse Resp BP Pulse Ox 97.9 F 88 16 123/73 94 L 07/03/17 00:00 07/03/17 00:00 07/03/17 00:00 07/03/17 00:00 07/03/17 00:00 Intake and Output: 07/02/17 07/03/17 18:59 06:59 Intake Total 1700 195 Output Total 450 250 Balance 1250 -55 - Medications Medications: Current Medications Acetaminophen (Tylenol 325mg Tab) 650 mg PO Q6H PRN PRN Reason: Pain, Mild (1-3) Last Admin: 06/26/17 01:06 Dose: 650 mg Albuterol/Ipratropium (Duoneb 3 Mg/0.5 Mg (3 Ml) Ud) 3 ml INH RQ4 [facility] Last Admin: 07/02/17 20:01 Dose: 3 ml Aripiprazole (Abilify) 2 mg PO HS [facility] Last Admin: 07/02/17 21:59 Dose: 2 mg Diltiazem HCl (Cardizem) 30 mg PO TID [facility] Last Admin: 07/02/17 16:24 Dose: 30 mg Enoxaparin Sodium (Lovenox) 40 mg SC DAILY [facility] PRN Reason: Protocol Last Admin: 07/02/17 08:43 Dose: 40 mg Folic Acid (Folic Acid) 1 mg PO DAILY [facility] Last Admin: 07/02/17 09:35 Dose: 1 mg Azithromycin 500 mg/ Sodium (Chloride) 250 mls @ 250 mls/hr IVPB DAILY [facility] PRN Reason: Protocol Last Admin: 07/02/17 10:39 Dose: 250 mls/hr Ceftriaxone Sodium (Rocephin Iv 1 Gm Duplex) 50 mls @ 50 mls/hr IVPB DAILY [facility] PRN Reason: Protocol Last Admin: 07/02/17 08:47 Dose: 50 mls/hr Metronidazole (Flagyl 500mg/100ml Ns) 100 mls @ 100 mls/hr IVPB Q8 [facility] PRN Reason: Protocol Last Admin: 07/02/17 16:25 Dose: 100 mls/hr Methylprednisolone (Solu-Medrol) 60 mg IV Q6 [facility] Last Admin: 07/02/17 22:00 Dose: 60 mg Mirtazapine (Remeron) 15 mg PO HS [facility] Last Admin: 07/02/17 22:00 Dose: 15 mg Pantoprazole Sodium (Protonix Ec Tab) 40 mg PO DAILY [facility] Last Admin: 07/02/17 08:45 Dose: 40 mg Thiamine HCl (Vitamin B1 Tab) 50 mg PO DAILY [facility] Last Admin: 07/02/17 12:16 Dose: 50 mg Venlafaxine HCl (Effexor Xr) 150 mg PO DAILY [facility] Last Admin: 07/02/17 08:45 Dose: 150 mg - Labs Labs: 07/02/17 04:15 07/02/17 04:15 PT 11.0 Seconds (9.8-13.1) 06/25/17 17:50 INR 1.0 (0.9-1.2) 06/25/17 17:50 APTT 28.2 Seconds (25.6-37.1) 06/25/17 17:50 - Constitutional Appears: In Acute Distress (YANEZ) - Head Exam Head Exam: ATRAUMATIC, NORMOCEPHALIC - Respiratory Exam Respiratory Exam: Wheezes (scattered bilateral) - Cardiovascular Exam Cardiovascular Exam: Tachycardia - GI/Abdominal Exam GI & Abdominal Exam: Distended, Soft - Neurological Exam Neurological Exam: Alert, Oriented x3 - Psychiatric Exam Psychiatric exam: Anxious (slightly) - Skin Skin Exam: Normal Color, Warm Assessment and Plan (1) Respiratory distress Assessment & Plan: Most likely secondary to COPD exacerbation Duonebs Steroids CT for PE protocol O2 to maintain saturation >92% close monitor Status: Acute (2) COPD exacerbation Assessment & Plan: Respiratory treatments maintain O2 sat >92% solumedrol DVT/GI prophylaxis Status: Acute (3) Tachycardia Assessment & Plan: continue cardizem CT chest PE protocol Status: Acute (4) CAP (community acquired pneumonia) Assessment & Plan: continue antibiotics sputum culture f/u blood, urine cx Status: Resolved
--- NOTE | 2017-07-03 00:34 | CP.PCM.PN ---
Subjective - Date & Time of Evaluation Date of Evaluation: 06/29/17 Time of Evaluation: 16:10 - Subjective Subjective: Patient in the ICU, intubated. 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 Objective - Vital Signs/Intake and Output Vital Signs (last 24 hours): Temp Pulse Resp BP Pulse Ox 97.9 F 88 16 123/73 94 L 07/03/17 00:00 07/03/17 00:00 07/03/17 00:00 07/03/17 00:00 07/03/17 00:00 Intake and Output: 07/02/17 07/03/17 18:59 06:59 Intake Total 1700 195 Output Total 450 250 Balance 1250 -55 - Medications Medications: Current Medications Acetaminophen (Tylenol 325mg Tab) 650 mg PO Q6H PRN PRN Reason: Pain, Mild (1-3) Last Admin: 06/26/17 01:06 Dose: 650 mg Albuterol/Ipratropium (Duoneb 3 Mg/0.5 Mg (3 Ml) Ud) 3 ml INH RQ4 [facility] Last Admin: 07/02/17 20:01 Dose: 3 ml Aripiprazole (Abilify) 2 mg PO HS [facility] Last Admin: 07/02/17 21:59 Dose: 2 mg Diltiazem HCl (Cardizem) 30 mg PO TID [facility] Last Admin: 07/02/17 16:24 Dose: 30 mg Enoxaparin Sodium (Lovenox) 40 mg SC DAILY [facility] PRN Reason: Protocol Last Admin: 07/02/17 08:43 Dose: 40 mg Folic Acid (Folic Acid) 1 mg PO DAILY [facility] Last Admin: 07/02/17 09:35 Dose: 1 mg Azithromycin 500 mg/ Sodium (Chloride) 250 mls @ 250 mls/hr IVPB DAILY [facility] PRN Reason: Protocol Last Admin: 07/02/17 10:39 Dose: 250 mls/hr Ceftriaxone Sodium (Rocephin Iv 1 Gm Duplex) 50 mls @ 50 mls/hr IVPB DAILY [facility] PRN Reason: Protocol Last Admin: 07/02/17 08:47 Dose: 50 mls/hr Metronidazole (Flagyl 500mg/100ml Ns) 100 mls @ 100 mls/hr IVPB Q8 [facility] PRN Reason: Protocol Last Admin: 07/02/17 16:25 Dose: 100 mls/hr Methylprednisolone (Solu-Medrol) 60 mg IV Q6 [facility] Last Admin: 07/02/17 22:00 Dose: 60 mg Mirtazapine (Remeron) 15 mg PO HS [facility] Last Admin: 07/02/17 22:00 Dose: 15 mg Pantoprazole Sodium (Protonix Ec Tab) 40 mg PO DAILY [facility] Last Admin: 07/02/17 08:45 Dose: 40 mg Thiamine HCl (Vitamin B1 Tab) 50 mg PO DAILY [facility] Last Admin: 07/02/17 12:16 Dose: 50 mg Venlafaxine HCl (Effexor Xr) 150 mg PO DAILY [facility] Last Admin: 07/02/17 08:45 Dose: 150 mg - Labs Labs: 07/02/17 04:15 07/02/17 04:15 PT 11.0 Seconds (9.8-13.1) 06/25/17 17:50 INR 1.0 (0.9-1.2) 06/25/17 17:50 APTT 28.2 Seconds (25.6-37.1) 06/25/17 17:50 - Constitutional Appears: Other (Intubated) - Head Exam Head Exam: ATRAUMATIC, NORMOCEPHALIC - Respiratory Exam Respiratory Exam: Decreased Breath Sounds, Wheezes (scattered) - Cardiovascular Exam Cardiovascular Exam: Tachycardia, +S1, +S2 Additional comments: Intubated - GI/Abdominal Exam GI & Abdominal Exam: Distended, Normal Bowel Sounds - Neurological Exam Neurological Exam: Awake - Skin Skin Exam: Normal Color, Warm Assessment and Plan (1) Acute respiratory failure with hypercapnia Assessment & Plan: Intubated ICU management ABG Pulmonology consult Status: Resolved (2) COPD exacerbation Assessment & Plan: Duonebs Steroids ABG Echo DVT/GI prophylaxis Status: Acute (3) CAP (community acquired pneumonia) Assessment & Plan: continue antibiotics ID consult F/u cultures Status: Resolved
--- NOTE | 2017-07-03 00:34 | CP.PCM.PN ---
Subjective - Date & Time of Evaluation Date of Evaluation: 06/30/17 Time of Evaluation: 16:15 - Subjective Subjective: Patient remains in the ICU, orally intubated. Awake, unable to answer questions due to being intubated. Per records no fever, chills, respiratory status stable Objective - Vital Signs/Intake and Output Vital Signs (last 24 hours): Temp Pulse Resp BP Pulse Ox 97.9 F 88 16 123/73 94 L 07/03/17 00:00 07/03/17 00:00 07/03/17 00:00 07/03/17 00:00 07/03/17 00:00 Intake and Output: 07/02/17 07/03/17 18:59 06:59 Intake Total 1700 195 Output Total 450 250 Balance 1250 -55 - Medications Medications: Current Medications Acetaminophen (Tylenol 325mg Tab) 650 mg PO Q6H PRN PRN Reason: Pain, Mild (1-3) Last Admin: 06/26/17 01:06 Dose: 650 mg Albuterol/Ipratropium (Duoneb 3 Mg/0.5 Mg (3 Ml) Ud) 3 ml INH RQ4 [facility] Last Admin: 07/02/17 20:01 Dose: 3 ml Aripiprazole (Abilify) 2 mg PO HS [facility] Last Admin: 07/02/17 21:59 Dose: 2 mg Diltiazem HCl (Cardizem) 30 mg PO TID [facility] Last Admin: 07/02/17 16:24 Dose: 30 mg Enoxaparin Sodium (Lovenox) 40 mg SC DAILY [facility] PRN Reason: Protocol Last Admin: 07/02/17 08:43 Dose: 40 mg Folic Acid (Folic Acid) 1 mg PO DAILY [facility] Last Admin: 07/02/17 09:35 Dose: 1 mg Azithromycin 500 mg/ Sodium (Chloride) 250 mls @ 250 mls/hr IVPB DAILY [facility] PRN Reason: Protocol Last Admin: 07/02/17 10:39 Dose: 250 mls/hr Ceftriaxone Sodium (Rocephin Iv 1 Gm Duplex) 50 mls @ 50 mls/hr IVPB DAILY [facility] PRN Reason: Protocol Last Admin: 07/02/17 08:47 Dose: 50 mls/hr Metronidazole (Flagyl 500mg/100ml Ns) 100 mls @ 100 mls/hr IVPB Q8 [facility] PRN Reason: Protocol Last Admin: 07/02/17 16:25 Dose: 100 mls/hr Methylprednisolone (Solu-Medrol) 60 mg IV Q6 [facility] Last Admin: 07/02/17 22:00 Dose: 60 mg Mirtazapine (Remeron) 15 mg PO HS [facility] Last Admin: 07/02/17 22:00 Dose: 15 mg Pantoprazole Sodium (Protonix Ec Tab) 40 mg PO DAILY [facility] Last Admin: 07/02/17 08:45 Dose: 40 mg Thiamine HCl (Vitamin B1 Tab) 50 mg PO DAILY [facility] Last Admin: 07/02/17 12:16 Dose: 50 mg Venlafaxine HCl (Effexor Xr) 150 mg PO DAILY [facility] Last Admin: 07/02/17 08:45 Dose: 150 mg - Labs Labs: 07/02/17 04:15 07/02/17 04:15 PT 11.0 Seconds (9.8-13.1) 06/25/17 17:50 INR 1.0 (0.9-1.2) 06/25/17 17:50 APTT 28.2 Seconds (25.6-37.1) 06/25/17 17:50 - Constitutional Appears: Non-toxic (orally intubated) - Head Exam Head Exam: ATRAUMATIC, NORMOCEPHALIC - ENT Exam ENT Exam: Mucous Membranes Moist - Respiratory Exam Respiratory Exam: Wheezes (scattered) - Cardiovascular Exam Cardiovascular Exam: REGULAR RHYTHM, +S1, +S2 - GI/Abdominal Exam GI & Abdominal Exam: Distended, Normal Bowel Sounds - Neurological Exam Neurological Exam: Awake - Skin Skin Exam: Normal Color, Warm Assessment and Plan (1) Acute respiratory failure with hypercapnia Assessment & Plan: Remains intubated stable respiratory status ICU management appreciated Pulmonology consult appreciated Status: Resolved (2) COPD exacerbation Assessment & Plan: Duonebs, solumedrol DVT/GI prophylaxis Status: Acute (3) CAP (community acquired pneumonia) Assessment & Plan: continue antibiotics ID consult appreciated Status: Resolved
--- NOTE | 2017-07-03 00:35 | CP.PCM.PN ---
Subjective - Date & Time of Evaluation Date of Evaluation: 07/01/17 Time of Evaluation: 19:00 - Subjective Subjective: Patient was extubated today, not in acute distress. Denies cp, sob, fevers, chills. No events overnight. Objective - Vital Signs/Intake and Output Vital Signs (last 24 hours): Temp Pulse Resp BP Pulse Ox 97.9 F 88 16 123/73 94 L 07/03/17 00:00 07/03/17 00:00 07/03/17 00:00 07/03/17 00:00 07/03/17 00:00 Intake and Output: 07/02/17 07/03/17 18:59 06:59 Intake Total 1700 195 Output Total 450 250 Balance 1250 -55 - Medications Medications: Current Medications Acetaminophen (Tylenol 325mg Tab) 650 mg PO Q6H PRN PRN Reason: Pain, Mild (1-3) Last Admin: 06/26/17 01:06 Dose: 650 mg Albuterol/Ipratropium (Duoneb 3 Mg/0.5 Mg (3 Ml) Ud) 3 ml INH RQ4 [facility] Last Admin: 07/02/17 20:01 Dose: 3 ml Aripiprazole (Abilify) 2 mg PO HS [facility] Last Admin: 07/02/17 21:59 Dose: 2 mg Diltiazem HCl (Cardizem) 30 mg PO TID [facility] Last Admin: 07/02/17 16:24 Dose: 30 mg Enoxaparin Sodium (Lovenox) 40 mg SC DAILY [facility] PRN Reason: Protocol Last Admin: 07/02/17 08:43 Dose: 40 mg Folic Acid (Folic Acid) 1 mg PO DAILY [facility] Last Admin: 07/02/17 09:35 Dose: 1 mg Azithromycin 500 mg/ Sodium (Chloride) 250 mls @ 250 mls/hr IVPB DAILY [facility] PRN Reason: Protocol Last Admin: 07/02/17 10:39 Dose: 250 mls/hr Ceftriaxone Sodium (Rocephin Iv 1 Gm Duplex) 50 mls @ 50 mls/hr IVPB DAILY [facility] PRN Reason: Protocol Last Admin: 07/02/17 08:47 Dose: 50 mls/hr Metronidazole (Flagyl 500mg/100ml Ns) 100 mls @ 100 mls/hr IVPB Q8 [facility] PRN Reason: Protocol Last Admin: 07/02/17 16:25 Dose: 100 mls/hr Methylprednisolone (Solu-Medrol) 60 mg IV Q6 [facility] Last Admin: 07/02/17 22:00 Dose: 60 mg Mirtazapine (Remeron) 15 mg PO HS [facility] Last Admin: 07/02/17 22:00 Dose: 15 mg Pantoprazole Sodium (Protonix Ec Tab) 40 mg PO DAILY [facility] Last Admin: 07/02/17 08:45 Dose: 40 mg Thiamine HCl (Vitamin B1 Tab) 50 mg PO DAILY [facility] Last Admin: 07/02/17 12:16 Dose: 50 mg Venlafaxine HCl (Effexor Xr) 150 mg PO DAILY [facility] Last Admin: 07/02/17 08:45 Dose: 150 mg - Labs Labs: 07/02/17 04:15 07/02/17 04:15 PT 11.0 Seconds (9.8-13.1) 06/25/17 17:50 INR 1.0 (0.9-1.2) 06/25/17 17:50 APTT 28.2 Seconds (25.6-37.1) 06/25/17 17:50 - Constitutional Appears: No Acute Distress - Head Exam Head Exam: ATRAUMATIC, NORMOCEPHALIC - Respiratory Exam Respiratory Exam: Decreased Breath Sounds, Rhonchi (scattered) - Cardiovascular Exam Cardiovascular Exam: REGULAR RHYTHM, +S1, +S2 - GI/Abdominal Exam GI & Abdominal Exam: Distended, Normal Bowel Sounds - Neurological Exam Neurological Exam: Alert, Awake - Psychiatric Exam Psychiatric exam: Normal Affect - Skin Skin Exam: Normal Color, Warm Assessment and Plan (1) Acute respiratory failure with hypercapnia Assessment & Plan: Patient was successfully extubated doing well on O2 via NC, saturations in the 90s ICU management Status: Resolved (2) COPD exacerbation Assessment & Plan: Duonebs taper solumedrol DVT/GI prophylaxis Status: Acute (3) CAP (community acquired pneumonia) Assessment & Plan: continue antibiotics All cultures so far negative monitor labs Status: Resolved (4) Ileus Assessment & Plan: Abdomen distended CT Abd/Pel - mild mural thickening of tip of appendix surgery consult Status: Resolved
--- NOTE | 2017-07-03 00:36 | CP.PCM.PN ---
Subjective - Date & Time of Evaluation Date of Evaluation: 07/02/17 Time of Evaluation: 20:00 - Subjective Subjective: Patient was successfully extubated yesterday. In no acute distress. Denies cp, sob, f/c/n/v Offers no complains, no events overnight Objective - Vital Signs/Intake and Output Vital Signs (last 24 hours): Temp Pulse Resp BP Pulse Ox 97.9 F 88 16 123/73 94 L 07/03/17 00:00 07/03/17 00:00 07/03/17 00:00 07/03/17 00:00 07/03/17 00:00 Intake and Output: 07/02/17 07/03/17 18:59 06:59 Intake Total 1700 195 Output Total 450 250 Balance 1250 -55 - Medications Medications: Current Medications Acetaminophen (Tylenol 325mg Tab) 650 mg PO Q6H PRN PRN Reason: Pain, Mild (1-3) Last Admin: 06/26/17 01:06 Dose: 650 mg Albuterol/Ipratropium (Duoneb 3 Mg/0.5 Mg (3 Ml) Ud) 3 ml INH RQ4 [facility] Last Admin: 07/02/17 20:01 Dose: 3 ml Aripiprazole (Abilify) 2 mg PO HS [facility] Last Admin: 07/02/17 21:59 Dose: 2 mg Diltiazem HCl (Cardizem) 30 mg PO TID [facility] Last Admin: 07/02/17 16:24 Dose: 30 mg Enoxaparin Sodium (Lovenox) 40 mg SC DAILY [facility] PRN Reason: Protocol Last Admin: 07/02/17 08:43 Dose: 40 mg Folic Acid (Folic Acid) 1 mg PO DAILY [facility] Last Admin: 07/02/17 09:35 Dose: 1 mg Azithromycin 500 mg/ Sodium (Chloride) 250 mls @ 250 mls/hr IVPB DAILY [facility] PRN Reason: Protocol Last Admin: 07/02/17 10:39 Dose: 250 mls/hr Ceftriaxone Sodium (Rocephin Iv 1 Gm Duplex) 50 mls @ 50 mls/hr IVPB DAILY [facility] PRN Reason: Protocol Last Admin: 07/02/17 08:47 Dose: 50 mls/hr Metronidazole (Flagyl 500mg/100ml Ns) 100 mls @ 100 mls/hr IVPB Q8 [facility] PRN Reason: Protocol Last Admin: 07/02/17 16:25 Dose: 100 mls/hr Methylprednisolone (Solu-Medrol) 60 mg IV Q6 [facility] Last Admin: 07/02/17 22:00 Dose: 60 mg Mirtazapine (Remeron) 15 mg PO HS [facility] Last Admin: 07/02/17 22:00 Dose: 15 mg Pantoprazole Sodium (Protonix Ec Tab) 40 mg PO DAILY [facility] Last Admin: 07/02/17 08:45 Dose: 40 mg Thiamine HCl (Vitamin B1 Tab) 50 mg PO DAILY [facility] Last Admin: 07/02/17 12:16 Dose: 50 mg Venlafaxine HCl (Effexor Xr) 150 mg PO DAILY [facility] Last Admin: 07/02/17 08:45 Dose: 150 mg - Labs Labs: 07/02/17 04:15 07/02/17 04:15 PT 11.0 Seconds (9.8-13.1) 06/25/17 17:50 INR 1.0 (0.9-1.2) 06/25/17 17:50 APTT 28.2 Seconds (25.6-37.1) 06/25/17 17:50 - Constitutional Appears: Well, No Acute Distress - Head Exam Head Exam: ATRAUMATIC, NORMOCEPHALIC - Respiratory Exam Respiratory Exam: Decreased Breath Sounds, Rhonchi (scattered) - Cardiovascular Exam Cardiovascular Exam: REGULAR RHYTHM, +S1, +S2 - GI/Abdominal Exam GI & Abdominal Exam: Distended, Normal Bowel Sounds - Neurological Exam Neurological Exam: Alert, Oriented x3 - Psychiatric Exam Psychiatric exam: Normal Affect - Skin Skin Exam: Normal Color, Warm Assessment and Plan (1) Acute respiratory failure with hypercapnia Assessment & Plan: Less SOB was able to transfer oob to chair If remains stable will transfer to med-surg Status: Resolved (2) COPD exacerbation Assessment & Plan: continue duonebs taper steroids DVT/GI prophylaxis PT Status: Acute (3) CAP (community acquired pneumonia) Assessment & Plan: continue antibiotics cultures negative Blood tests improved Status: Resolved (4) Ileus Assessment & Plan: No surgical intervention per sx conservative management oob to chair PT Status: Resolved
[2017-07-03] MEDS: Albuterol-Ipratrop 3 mg / 0.5 (3 ml) UD INH SCH ×6 (00:45→20:01)
[2017-07-03] MEDS: metroNIDAZOLE 500mg/100ml NS 100 ML IVPB SCH ×3 (01:17→16:11)
[2017-07-03 05:55] LABS: HEMOGLOBIN 11.5 g/dL (12.0-18.0); MEAN CELL VOLUME 93.9 fl (80.0-94.0); MEAN CORPUSCULAR HEMOGLOBIN 30.7 pg (27.0-31.0); MEAN CORPUSCULAR HGB CONC 32.7 g/dL (33.0-37.0); RBC 3.73 Mil/uL (4.40-5.90); RED CELL DISTRIBUTION WIDTH 15.1 % (11.5-14.5); WHITE BLOOD COUNT 8.9 K/uL (4.8-10.8)
[2017-07-03 06:51] LABS: BLOOD UREA NITROGEN 30 mg/dl (9-20); CALCIUM 8.4 mg/dL (8.4-10.2); GFR AFRICAN-AMERICAN > 60; GFR NON-AFRICAN AMERICAN > 60
[2017-07-03] MEDS: cefTRIAXone IV 1 gm in Dextros 50 ML IVPB SCH (08:16)
[2017-07-03] MEDS: Enoxaparin 40 mg Syringe SC SCH (08:18)
[2017-07-03] MEDS: CYANOCOBALAMIN (VITAMIN B-12) 250 MCG TABLET PO SCH (08:18)
[2017-07-03] MEDS: Pantoprazole 40 mg EC Tab PO SCH (08:18)
[2017-07-03] MEDS: Venlafaxine 150 mg ER Cap PO SCH (08:19)
[2017-07-03] MEDS: Azithromycin 500 MG in Sodium Chloride 0.9% 250 ML IVPB SCH (09:31)
--- NOTE | 2017-07-03 11:46 | CP.CCUPN ---
CCU Subjective - Physician Review Subjective (Free Text): Awake and remains appropriately responsive, no episodes of desaturation noted. Denies any Chest discomfort or SOB at rest. Other vitals, and I/Os reviewed. ROS: No other pertinent negs or positives on 10+ system review. PMSFH: All other Nursing and physician documentation reviewed to date; no new pertinent info noted relevant to current medical problems. CXR: no new consolidation, previous atelectasis chnages resolved. IMPRESSION / MAJOR PROBLEMS NOW: 1. Acute Hypercapneic Resp Failure2 Atelectasis with COPD Exacerbation / bronchitis, and pneumonia 2. Ileus 3. Azotemia / Dehydration PLAN: 1. Continue to mobilize OOB as tolerated. 2. PO diet tolrated well, no further surgical intervention at this time. 3. Incentive spirometry. Start to wean steroids. 4. Stable for Regular med/surg bed. CCU Objective - Vital Signs / Intake & Output Vital Signs (Last 4 hours): Vital Signs Temp Pulse Resp BP Pulse Ox 07/03/17 11:02 113 H 18 122/72 94 L 07/03/17 10:00 112 H 17 122/72 94 L 07/03/17 08:18 105 H 17 136/73 93 L 07/03/17 08:00 98.4 F 94 H 19 136/73 92 L Intake and Output (Last 8hrs): Intake & Output 07/02/17 07/03/17 07/03/17 22:59 06:59 14:59 Intake Total 1015 100 870 Output Total 400 150 500 Balance 615 -50 370 Intake: IV 0 Intake, Piggyback 100 100 150 Oral 915 720 Output: Urine 400 150 500 Urethral (Cormier) 100 150 500 Urine, Voided 300 Other: # Voids Urethral (Cormier) 1 1 Urine, Voided 1 - Physical Exam Head: Positive for: Atraumatic, Normocephalic Pupils: Positive for: PERRL. Negative for: Sluggish, Non-Reactive, Pinpoint Extroacular Muscles: Positive for: EOMI. Negative for: Gaze Palsy, Entrapment Conjunctiva: Positive for: Normal. Negative for: Injected, Icteric Mouth: Positive for: Moist Mucous Membranes Nose (Internal): Positive for: Normal Inspection Neck: Positive for: Normal Range of Motion, Trachea Midline. Negative for: Meningeal Signs, MIDLINE TENDERNESS, Paraspinal Tenderness, JVD, Lymphadenopathy , Bruit, Other Respiratory/Chest: Positive for: Wheezes, Decreased Breath Sounds, Rhonchi. Negative for: Clear to Auscultation, Good Air Exchange, Respiratory Distress, Accessory Muscle Use, Tachypneic, Tender to Palpation Cardiovascular: Positive for: Regular Rate and Rhythm, Normal S1, S2, Peripheal Pulses Present, Tachycardic. Negative for: Murmurs, Irregular Rhythm, Bradycardic Abdomen: Positive for: Distention, Normal Bowel Sounds. Negative for: Tenderness, Peritoneal Signs, Rebound, Guarding, Mass/Organomegaly Back: Negative for: CVA Tenderness Upper Extremity: Positive for: Normal Inspection, NORMAL PULSES, Capillary Refill < 2s. Negative for: Cyanosis, Edema Lower Extremity: Positive for: Normal Inspection, NORMAL PULSES, Capillary Refill < 2 s. Negative for: Edema, CALF TENDERNESS Skin: Positive for: Warm, Dry. Negative for: Rashes Psychiatric: Positive for: Alert, Oriented x 3 - Medications Active Medications: Active Medications Generic Name Dose Route Start Last Admin Trade Name Freq PRN Reason Stop Dose Admin Acetaminophen 650 mg 06/25/17 23:04 06/26/17 01:06 Tylenol 325mg Tab PO 650 mg Q6H PRN Administration Pain, Mild (1-3) Albuterol/Ipratropium 3 ml 06/29/17 16:00 07/03/17 08:47 Duoneb 3 Mg/0.5 Mg (3 Ml) Ud INH 3 ml RQ4 [facility] Administration Aripiprazole 2 mg 06/25/17 23:15 07/02/17 21:59 Abilify PO 2 mg HS [facility] Administration Diltiazem HCl 30 mg 06/27/17 17:00 07/03/17 08:18 Cardizem PO 30 mg TID [facility] Administration Folic Acid 1 mg 06/26/17 09:00 07/03/17 08:20 Folic Acid PO 1 mg DAILY [facility] Administration Azithromycin 500 mg/ Sodium 250 mls @ 250 mls/hr 06/26/17 09:00 07/03/17 09: 31 Chloride IVPB 250 mls/hr DAILY [facility] Administration Protocol Ceftriaxone Sodium 50 mls @ 50 mls/hr 07/01/17 09:00 07/03/17 08:16 Rocephin Iv 1 Gm Duplex IVPB 50 mls/hr DAILY [facility] Administration Protocol Metronidazole 100 mls @ 100 mls/hr 07/01/17 09:00 07/03/17 08:54 Flagyl 500mg/100ml Ns IVPB 100 mls/hr Q8 [facility] Administration Protocol Methylprednisolone 60 mg 06/26/17 04:00 07/03/17 09:28 Solu-Medrol IV 60 mg Q6 [facility] Administration Mirtazapine 15 mg 06/25/17 23:15 07/02/17 22:00 Remeron PO 15 mg HS [facility] Administration Pantoprazole Sodium 40 mg 06/26/17 09:00 07/03/17 08:18 Protonix Ec Tab PO 40 mg DAILY [facility] Administration Thiamine HCl 50 mg 06/26/17 09:00 07/03/17 08:18 Vitamin B1 Tab PO 50 mg DAILY [facility] Administration Venlafaxine HCl 150 mg 06/26/17 09:00 07/03/17 08:19 Effexor Xr PO 150 mg DAILY [facility] Administration - Patient Studies Lab Studies: Lab Studies 07/03/17 07/03/17 Range/Units 04:51 04:51 WBC 8.9 (4.8-10.8) K/uL RBC 3.73 L (4.40-5.90) Mil/uL Hgb 11.5 L (12.0-18.0) g/dL Hct 35.0 (35.0-51.0) % MCV 93.9 (80.0-94.0) fl MCH 30.7 (27.0-31.0) pg MCHC 32.7 L (33.0-37.0) g/dL RDW 15.1 H (11.5-14.5) % Plt Count 182 (130-400) K/uL Sodium 140 (132-148) mmol/l Potassium 4.2 (3.6-5.0) MMOL/L Chloride 101 (98-107) mmol/L Carbon Dioxide 35 H (22-30) mmol/L Anion Gap 8 L (10-20) BUN 30 H (9-20) mg/dl Creatinine 0.8 (0.8-1.5) mg/dl Est GFR ( Amer) > 60 Est GFR (Non-Af Amer) > 60 Random Glucose 178 H (75-110) mg/dL Calcium 8.4 (8.4-10.2) mg/dL Laboratory Results - last 24 hr 07/03/17 07/03/17 04:51 04:51 WBC 8.9 RBC 3.73 L Hgb 11.5 L Hct 35.0 MCV 93.9 MCH 30.7 MCHC 32.7 L RDW 15.1 H Plt Count 182 Sodium 140 Potassium 4.2 Chloride 101 Carbon Dioxide 35 H Anion Gap 8 L BUN 30 H Creatinine 0.8 Est GFR ( Amer) > 60 Est GFR (Non-Af Amer) > 60 Random Glucose 178 H Calcium 8.4 Review of Systems - Review of Systems All systems: reviewed and no additional remarkable complaints except (as above) Critical Care Progress Note - Nutrition Nutrition: Nutrition Category Date Time Status Heart Healthy Diet [DIET] Diets 07/02/17 Breakfast Active
--- NOTE | 2017-07-03 12:19 | RAD ---
HISTORY: f/u PNA, Atelectasis COMPARISON: Chest radiograph dated 07/01/2017. FINDINGS: LUNGS: Stable chronic prominence of the bilateral interstitial markings with right mid lung scarring redemonstrated. No focal consolidation. PLEURA: No significant pleural effusion identified, no pneumothorax apparent. CARDIOVASCULAR: Atherosclerotic aortic calcifications. Cardiomediastinal silhouette within normal limits. OSSEOUS STRUCTURES: Unchanged. VISUALIZED UPPER ABDOMEN: Normal. OTHER FINDINGS: Removal of endotracheal and enteric tubes. IMPRESSION: Interval extubation and removal of enteric tube. No focal consolidation or pleural effusion.
--- NOTE | 2017-07-03 15:29 | CP.PCM.PN ---
Subjective - Date & Time of Evaluation Date of Evaluation: 07/03/17 Time of Evaluation: 13:40 - Subjective Subjective: F/U Acute respiratory failures Awake, SOB on exertion, on O2 NC 3 L/M. Objective - Vital Signs/Intake and Output Vital Signs (last 24 hours): Temp Pulse Resp BP Pulse Ox 98.4 F 101 H 20 121/65 94 L 07/03/17 12:00 07/03/17 15:00 07/03/17 15:00 07/03/17 15:00 07/03/17 15:00 Intake and Output: 07/03/17 07/03/17 06:59 18:59 Intake Total 295 1720 Output Total 400 1000 Balance -105 720 - Medications Medications: Current Medications Acetaminophen (Tylenol 325mg Tab) 650 mg PO Q6H PRN PRN Reason: Pain, Mild (1-3) Last Admin: 06/26/17 01:06 Dose: 650 mg Albuterol/Ipratropium (Duoneb 3 Mg/0.5 Mg (3 Ml) Ud) 3 ml INH RQ4 [facility] Last Admin: 07/03/17 11:49 Dose: 3 ml Aripiprazole (Abilify) 2 mg PO HS [facility] Last Admin: 07/02/17 21:59 Dose: 2 mg Diltiazem HCl (Cardizem) 30 mg PO TID [facility] Last Admin: 07/03/17 12:13 Dose: 30 mg Folic Acid (Folic Acid) 1 mg PO DAILY [facility] Last Admin: 07/03/17 08:20 Dose: 1 mg Azithromycin 500 mg/ Sodium (Chloride) 250 mls @ 250 mls/hr IVPB DAILY [facility] PRN Reason: Protocol Last Admin: 07/03/17 09:31 Dose: 250 mls/hr Ceftriaxone Sodium (Rocephin Iv 1 Gm Duplex) 50 mls @ 50 mls/hr IVPB DAILY [facility] PRN Reason: Protocol Last Admin: 07/03/17 08:16 Dose: 50 mls/hr Metronidazole (Flagyl 500mg/100ml Ns) 100 mls @ 100 mls/hr IVPB Q8 [facility] PRN Reason: Protocol Last Admin: 07/03/17 08:54 Dose: 100 mls/hr Methylprednisolone (Solu-Medrol) 60 mg IV Q6 [facility] Last Admin: 07/03/17 09:28 Dose: 60 mg Mirtazapine (Remeron) 15 mg PO HS [facility] Last Admin: 07/02/17 22:00 Dose: 15 mg Pantoprazole Sodium (Protonix Ec Tab) 40 mg PO DAILY [facility] Last Admin: 07/03/17 08:18 Dose: 40 mg Thiamine HCl (Vitamin B1 Tab) 50 mg PO DAILY [facility] Last Admin: 07/03/17 08:18 Dose: 50 mg Venlafaxine HCl (Effexor Xr) 150 mg PO DAILY [facility] Last Admin: 07/03/17 08:19 Dose: 150 mg - Labs Labs: 07/03/17 04:51 07/03/17 04:51 PT 11.0 Seconds (9.8-13.1) 06/25/17 17:50 INR 1.0 (0.9-1.2) 06/25/17 17:50 APTT 28.2 Seconds (25.6-37.1) 06/25/17 17:50 - Constitutional Appears: No Acute Distress - Head Exam Head Exam: NORMAL INSPECTION - Eye Exam Eye Exam: PERRL - ENT Exam ENT Exam: Normal Exam - Neck Exam Neck Exam: Normal Inspection - Respiratory Exam Respiratory Exam: Decreased Breath Sounds (at bases), Rhonchi (scattered) - Cardiovascular Exam Cardiovascular Exam: Tachycardia - GI/Abdominal Exam GI & Abdominal Exam: Soft, Normal Bowel Sounds - Extremities Exam Extremities Exam: Normal Inspection - Neurological Exam Neurological Exam: Awake Additional comments: Follows commands, moves all extremities - Skin Skin Exam: Warm Assessment and Plan (1) Acute respiratory failure with hypercapnia Status: Resolved (2) CAP (community acquired pneumonia) Status: Acute (3) COPD exacerbation Status: Acute (4) Pleural effusion, bilateral Status: Acute - Assessment and Plan (Free Text) Plan: Continue Zithromax, Rocephin, Solumedrol, Duoneb and rest of Tx.
--- NOTE | 2017-07-04 00:23 | CP.PCM.PN ---
Subjective - Date & Time of Evaluation Date of Evaluation: 07/03/17 Time of Evaluation: 12:45 - Subjective Subjective: In bed, no acute distress. Gets YANEZ and desats to 80s when attempting to get oob. denies cp, fevers, chills Remains on O2 via NC Objective - Vital Signs/Intake and Output Vital Signs (last 24 hours): Temp Pulse Resp BP Pulse Ox 98.0 F 96 H 20 153/79 H 94 L 07/03/17 23:42 07/03/17 23:42 07/03/17 23:42 07/03/17 23:42 07/03/17 23:42 Intake and Output: 07/03/17 07/04/17 18:59 06:59 Intake Total 1720 Output Total 1000 Balance 720 - Medications Medications: Current Medications Acetaminophen (Tylenol 325mg Tab) 650 mg PO Q6H PRN PRN Reason: Pain, Mild (1-3) Last Admin: 06/26/17 01:06 Dose: 650 mg Albuterol/Ipratropium (Duoneb 3 Mg/0.5 Mg (3 Ml) Ud) 3 ml INH RQ4 [facility] Last Admin: 07/03/17 20:01 Dose: 3 ml Aripiprazole (Abilify) 2 mg PO HS [facility] Last Admin: 07/03/17 21:57 Dose: 2 mg Diltiazem HCl (Cardizem) 30 mg PO TID [facility] Last Admin: 07/03/17 16:10 Dose: 30 mg Folic Acid (Folic Acid) 1 mg PO DAILY [facility] Last Admin: 07/03/17 08:20 Dose: 1 mg Azithromycin 500 mg/ Sodium (Chloride) 250 mls @ 250 mls/hr IVPB DAILY [facility] PRN Reason: Protocol Last Admin: 07/03/17 09:31 Dose: 250 mls/hr Ceftriaxone Sodium (Rocephin Iv 1 Gm Duplex) 50 mls @ 50 mls/hr IVPB DAILY [facility] PRN Reason: Protocol Last Admin: 07/03/17 08:16 Dose: 50 mls/hr Metronidazole (Flagyl 500mg/100ml Ns) 100 mls @ 100 mls/hr IVPB Q8 [facility] PRN Reason: Protocol Last Admin: 07/03/17 16:11 Dose: 100 mls/hr Methylprednisolone (Solu-Medrol) 60 mg IV Q6 [facility] Last Admin: 07/03/17 21:58 Dose: 60 mg Mirtazapine (Remeron) 15 mg PO HS [facility] Last Admin: 07/03/17 22:35 Dose: 15 mg Pantoprazole Sodium (Protonix Ec Tab) 40 mg PO DAILY [facility] Last Admin: 07/03/17 08:18 Dose: 40 mg Thiamine HCl (Vitamin B1 Tab) 50 mg PO DAILY [facility] Last Admin: 07/03/17 08:18 Dose: 50 mg Venlafaxine HCl (Effexor Xr) 150 mg PO DAILY [facility] Last Admin: 07/03/17 08:19 Dose: 150 mg - Labs Labs: 07/03/17 04:51 07/03/17 04:51 PT 11.0 Seconds (9.8-13.1) 06/25/17 17:50 INR 1.0 (0.9-1.2) 06/25/17 17:50 APTT 28.2 Seconds (25.6-37.1) 06/25/17 17:50 - Constitutional Appears: Well, No Acute Distress - Head Exam Head Exam: ATRAUMATIC, NORMOCEPHALIC - Respiratory Exam Respiratory Exam: Decreased Breath Sounds, Rhonchi (few, scattered) - Cardiovascular Exam Cardiovascular Exam: REGULAR RHYTHM, +S1, +S2 - GI/Abdominal Exam GI & Abdominal Exam: Distended, Normal Bowel Sounds - Neurological Exam Neurological Exam: Alert, Oriented x3 - Psychiatric Exam Psychiatric exam: Normal Affect, Normal Mood - Skin Skin Exam: Normal Color, Warm Assessment and Plan (1) Acute respiratory failure with hypercapnia Assessment & Plan: Less SOb OOB to chair PT Status: Resolved (2) COPD exacerbation Assessment & Plan: taper steriods duonebs PT dvt/gi prophylaxis Status: Acute (3) CAP (community acquired pneumonia) Assessment & Plan: Cxr improved continue antibiotics all cultures negative IS PT Status: Resolved (4) Ileus Assessment & Plan: Lactulose OOB to ambulate PT Status: Resolved
[2017-07-04] MEDS: Albuterol-Ipratrop 3 mg / 0.5 (3 ml) UD INH SCH ×7 (00:28→23:41)
[2017-07-04] MEDS: metroNIDAZOLE 500mg/100ml NS 100 ML IVPB SCH ×3 (01:00→16:18)
[2017-07-04] MEDS: CYANOCOBALAMIN (VITAMIN B-12) 250 MCG TABLET PO SCH (09:02)
[2017-07-04] MEDS: Venlafaxine 150 mg ER Cap PO SCH (09:02)
[2017-07-04] MEDS: Pantoprazole 40 mg EC Tab PO SCH (09:02)
[2017-07-04] MEDS: Azithromycin 500 MG in Sodium Chloride 0.9% 250 ML IVPB SCH (09:03)
[2017-07-04] MEDS: cefTRIAXone IV 1 gm in Dextros 50 ML IVPB SCH (10:06)
--- NOTE | 2017-07-04 13:22 | CP.PCM.PN ---
Subjective - Date & Time of Evaluation Date of Evaluation: 07/04/17 Time of Evaluation: 10:00 - Subjective Subjective: doing better no chest pain no sob Objective - Vital Signs/Intake and Output Vital Signs (last 24 hours): Temp Pulse Resp BP Pulse Ox 97.7 F 93 H 17 154/84 H 95 07/04/17 12:32 07/04/17 12:32 07/04/17 12:33 07/04/17 12:33 07/04/17 12:33 Intake and Output: 07/04/17 07/04/17 06:59 18:59 Intake Total 100 Output Total 400 Balance -300 - Medications Medications: Current Medications Acetaminophen (Tylenol 325mg Tab) 650 mg PO Q6H PRN PRN Reason: Pain, Mild (1-3) Last Admin: 06/26/17 01:06 Dose: 650 mg Albuterol/Ipratropium (Duoneb 3 Mg/0.5 Mg (3 Ml) Ud) 3 ml INH RQ4 [facility] Last Admin: 07/04/17 05:29 Dose: 3 ml Aripiprazole (Abilify) 2 mg PO HS [facility] Last Admin: 07/03/17 21:57 Dose: 2 mg Diltiazem HCl (Cardizem) 30 mg PO TID [facility] Last Admin: 07/04/17 12:33 Dose: 30 mg Folic Acid (Folic Acid) 1 mg PO DAILY [facility] Last Admin: 07/04/17 09:02 Dose: 1 mg Azithromycin 500 mg/ Sodium (Chloride) 250 mls @ 250 mls/hr IVPB DAILY [facility] PRN Reason: Protocol Last Admin: 07/04/17 09:03 Dose: 250 mls/hr Ceftriaxone Sodium (Rocephin Iv 1 Gm Duplex) 50 mls @ 50 mls/hr IVPB DAILY [facility] PRN Reason: Protocol Last Admin: 07/04/17 10:06 Dose: 50 mls/hr Metronidazole (Flagyl 500mg/100ml Ns) 100 mls @ 100 mls/hr IVPB Q8 [facility] PRN Reason: Protocol Last Admin: 07/04/17 10:06 Dose: 100 mls/hr Lactulose (Enulose) 20 gm PO BID PRN PRN Reason: Constipation Mirtazapine (Remeron) 15 mg PO HS [facility] Last Admin: 07/03/17 22:35 Dose: 15 mg Pantoprazole Sodium (Protonix Ec Tab) 40 mg PO DAILY [facility] Last Admin: 07/04/17 09:02 Dose: 40 mg Thiamine HCl (Vitamin B1 Tab) 50 mg PO DAILY [facility] Last Admin: 07/04/17 09:02 Dose: 50 mg Venlafaxine HCl (Effexor Xr) 150 mg PO DAILY [facility] Last Admin: 07/04/17 09:02 Dose: 150 mg - Labs Labs: 07/03/17 04:51 07/03/17 04:51 PT 11.0 Seconds (9.8-13.1) 06/25/17 17:50 INR 1.0 (0.9-1.2) 06/25/17 17:50 APTT 28.2 Seconds (25.6-37.1) 06/25/17 17:50 - Constitutional Appears: Well - Head Exam Head Exam: ATRAUMATIC, NORMAL INSPECTION, NORMOCEPHALIC - Eye Exam Eye Exam: EOMI, Normal appearance, PERRL Pupil Exam: NORMAL ACCOMODATION, PERRL - ENT Exam ENT Exam: Mucous Membranes Moist, Normal Exam - Neck Exam Neck Exam: Full ROM, Normal Inspection. absent: Lymphadenopathy - Respiratory Exam Respiratory Exam: Decreased Breath Sounds, Prolonged Expiratory Phase, Rhonchi - Cardiovascular Exam Cardiovascular Exam: REGULAR RHYTHM, +S1, +S2. absent: Murmur - GI/Abdominal Exam GI & Abdominal Exam: Soft, Normal Bowel Sounds. absent: Tenderness - Rectal Exam Rectal Exam: NORMAL INSPECTION - Extremities Exam Extremities Exam: Full ROM, Normal Capillary Refill, Normal Inspection. absent : Joint Swelling, Pedal Edema - Back Exam Back Exam: NORMAL INSPECTION - Neurological Exam Neurological Exam: Alert, Awake, CN II-XII Intact, Normal Gait, Oriented x3 - Psychiatric Exam Psychiatric exam: Normal Affect, Normal Mood - Skin Skin Exam: Dry, Intact, Normal Color, Warm Assessment and Plan (1) Acute respiratory failure with hypercapnia Status: Acute (2) CAP (community acquired pneumonia) Status: Acute (3) Pleural effusion, bilateral Status: Acute (4) COPD exacerbation Status: Acute (5) HTN (hypertension) Status: Chronic - Assessment and Plan (Free Text) Assessment: cont iv rx as ordered Plan: ok to d/c iv rx after 7 days
--- NOTE | 2017-07-04 16:11 | CP.PCM.PN ---
Subjective - Date & Time of Evaluation Date of Evaluation: 07/04/17 Time of Evaluation: 11:40 - Subjective Subjective: Respiratory failure. Pt extubated yesterday, cough on and off, chest congestion improving. Objective - Vital Signs/Intake and Output Vital Signs (last 24 hours): Temp Pulse Resp BP Pulse Ox 97.7 F 93 H 17 154/84 H 95 07/04/17 12:32 07/04/17 12:32 07/04/17 12:33 07/04/17 12:33 07/04/17 12:33 Intake and Output: 07/04/17 07/04/17 06:59 18:59 Intake Total 100 Output Total 400 Balance -300 - Medications Medications: Current Medications Acetaminophen (Tylenol 325mg Tab) 650 mg PO Q6H PRN PRN Reason: Pain, Mild (1-3) Last Admin: 06/26/17 01:06 Dose: 650 mg Albuterol/Ipratropium (Duoneb 3 Mg/0.5 Mg (3 Ml) Ud) 3 ml INH RQ4 [facility] Last Admin: 07/04/17 15:28 Dose: 3 ml Aripiprazole (Abilify) 2 mg PO HS [facility] Last Admin: 07/03/17 21:57 Dose: 2 mg Diltiazem HCl (Cardizem) 30 mg PO TID [facility] Last Admin: 07/04/17 12:33 Dose: 30 mg Folic Acid (Folic Acid) 1 mg PO DAILY [facility] Last Admin: 07/04/17 09:02 Dose: 1 mg Azithromycin 500 mg/ Sodium (Chloride) 250 mls @ 250 mls/hr IVPB DAILY [facility] PRN Reason: Protocol Last Admin: 07/04/17 09:03 Dose: 250 mls/hr Ceftriaxone Sodium (Rocephin Iv 1 Gm Duplex) 50 mls @ 50 mls/hr IVPB DAILY [facility] PRN Reason: Protocol Last Admin: 07/04/17 10:06 Dose: 50 mls/hr Metronidazole (Flagyl 500mg/100ml Ns) 100 mls @ 100 mls/hr IVPB Q8 [facility] PRN Reason: Protocol Last Admin: 07/04/17 10:06 Dose: 100 mls/hr Lactulose (Enulose) 20 gm PO BID PRN PRN Reason: Constipation Mirtazapine (Remeron) 15 mg PO HS [facility] Last Admin: 07/03/17 22:35 Dose: 15 mg Pantoprazole Sodium (Protonix Ec Tab) 40 mg PO DAILY [facility] Last Admin: 07/04/17 09:02 Dose: 40 mg Thiamine HCl (Vitamin B1 Tab) 50 mg PO DAILY [facility] Last Admin: 07/04/17 09:02 Dose: 50 mg Venlafaxine HCl (Effexor Xr) 150 mg PO DAILY [facility] Last Admin: 07/04/17 09:02 Dose: 150 mg - Labs Labs: 07/03/17 04:51 07/03/17 04:51 PT 11.0 Seconds (9.8-13.1) 06/25/17 17:50 INR 1.0 (0.9-1.2) 06/25/17 17:50 APTT 28.2 Seconds (25.6-37.1) 06/25/17 17:50 - Constitutional Appears: No Acute Distress - Head Exam Head Exam: NORMAL INSPECTION - Eye Exam Eye Exam: PERRL - ENT Exam ENT Exam: Normal Exam - Neck Exam Neck Exam: Normal Inspection - Respiratory Exam Respiratory Exam: Decreased Breath Sounds, Rhonchi (scattered) - Cardiovascular Exam Cardiovascular Exam: REGULAR RHYTHM - GI/Abdominal Exam GI & Abdominal Exam: Soft, Normal Bowel Sounds - Extremities Exam Extremities Exam: Normal Inspection - Back Exam Back Exam: NORMAL INSPECTION - Neurological Exam Neurological Exam: Alert, CN II-XII Intact, Oriented x3 - Psychiatric Exam Psychiatric exam: Normal Affect - Skin Skin Exam: Normal Color, Warm Assessment and Plan (1) Acute respiratory failure with hypercapnia Status: Resolved (2) CAP (community acquired pneumonia) Status: Acute (3) COPD exacerbation Status: Acute (4) Pleural effusion, bilateral Status: Acute - Assessment and Plan (Free Text) Plan: Continue Rocephin Zithromax , Flagyl and rest of Tx.
--- NOTE | 2017-07-04 23:25 | CP.PCM.PN ---
Subjective - Date & Time of Evaluation Date of Evaluation: 07/04/17 Time of Evaluation: 11:10 - Subjective Subjective: Feels better today. denies chest pain, f/c. reports sob when attempting to get oob even on oxygen. Objective - Vital Signs/Intake and Output Vital Signs (last 24 hours): Temp Pulse Resp BP Pulse Ox 98.1 F 97 H 20 129/75 95 07/04/17 16:17 07/04/17 16:18 07/04/17 16:17 07/04/17 16:18 07/04/17 16:17 Intake and Output: 07/04/17 07/05/17 18:59 06:59 Intake Total 100 Output Total 400 Balance -300 - Medications Medications: Current Medications Acetaminophen (Tylenol 325mg Tab) 650 mg PO Q6H PRN PRN Reason: Pain, Mild (1-3) Last Admin: 06/26/17 01:06 Dose: 650 mg Albuterol/Ipratropium (Duoneb 3 Mg/0.5 Mg (3 Ml) Ud) 3 ml INH RQ4 [facility] Last Admin: 07/04/17 19:15 Dose: 3 ml Aripiprazole (Abilify) 2 mg PO HS [facility] Last Admin: 07/04/17 22:30 Dose: 2 mg Diltiazem HCl (Cardizem) 30 mg PO TID [facility] Last Admin: 07/04/17 16:18 Dose: 30 mg Folic Acid (Folic Acid) 1 mg PO DAILY [facility] Last Admin: 07/04/17 09:02 Dose: 1 mg Azithromycin 500 mg/ Sodium (Chloride) 250 mls @ 250 mls/hr IVPB DAILY [facility] PRN Reason: Protocol Last Admin: 07/04/17 09:03 Dose: 250 mls/hr Ceftriaxone Sodium (Rocephin Iv 1 Gm Duplex) 50 mls @ 50 mls/hr IVPB DAILY [facility] PRN Reason: Protocol Last Admin: 07/04/17 10:06 Dose: 50 mls/hr Metronidazole (Flagyl 500mg/100ml Ns) 100 mls @ 100 mls/hr IVPB Q8 [facility] PRN Reason: Protocol Last Admin: 07/04/17 16:18 Dose: 100 mls/hr Lactulose (Enulose) 20 gm PO BID PRN PRN Reason: Constipation Mirtazapine (Remeron) 15 mg PO HS [facility] Last Admin: 07/04/17 22:30 Dose: 15 mg Pantoprazole Sodium (Protonix Ec Tab) 40 mg PO DAILY [facility] Last Admin: 07/04/17 09:02 Dose: 40 mg Thiamine HCl (Vitamin B1 Tab) 50 mg PO DAILY [facility] Last Admin: 07/04/17 09:02 Dose: 50 mg Venlafaxine HCl (Effexor Xr) 150 mg PO DAILY [facility] Last Admin: 07/04/17 09:02 Dose: 150 mg - Labs Labs: 07/03/17 04:51 07/03/17 04:51 PT 11.0 Seconds (9.8-13.1) 06/25/17 17:50 INR 1.0 (0.9-1.2) 06/25/17 17:50 APTT 28.2 Seconds (25.6-37.1) 06/25/17 17:50 - Constitutional Appears: Well, No Acute Distress - Head Exam Head Exam: ATRAUMATIC - Neck Exam Neck Exam: Full ROM - Respiratory Exam Respiratory Exam: Decreased Breath Sounds, Rhonchi (scattered rhonchi RML, RLLL) - Cardiovascular Exam Cardiovascular Exam: REGULAR RHYTHM, +S1, +S2 - GI/Abdominal Exam GI & Abdominal Exam: Distended, Firm, Normal Bowel Sounds - Extremities Exam Extremities Exam: Full ROM, Normal Capillary Refill - Neurological Exam Neurological Exam: Alert, Oriented x3 - Psychiatric Exam Psychiatric exam: Normal Affect, Normal Mood - Skin Skin Exam: Normal Color, Warm Assessment and Plan (1) Acute respiratory failure with hypercapnia Assessment & Plan: Doing better post extubation stil with SOB, continue O2 Cxr improved continue IS physical therapy Status: Resolved (2) CAP (community acquired pneumonia) Assessment & Plan: IV antibiotics ID consult appreciated continue O2 OOB to chair PT dvt prophylaxis Status: Acute (3) COPD exacerbation Assessment & Plan: improved continue duonebs, steroids PT Status: Acute (4) Ileus Assessment & Plan: Oob to ambulate PT Lactulose bid Reglan Status: Acute
[2017-07-05] MEDS: metroNIDAZOLE 500mg/100ml NS 100 ML IVPB SCH ×3 (00:42→16:32)
[2017-07-05] MEDS: Albuterol-Ipratrop 3 mg / 0.5 (3 ml) UD INH SCH ×6 (03:46→23:13)
[2017-07-05] MEDS: cefTRIAXone IV 1 gm in Dextros 50 ML IVPB SCH (08:37)
[2017-07-05] MEDS: Venlafaxine 150 mg ER Cap PO SCH (08:40)
[2017-07-05] MEDS: Pantoprazole 40 mg EC Tab PO SCH (08:40)
[2017-07-05] MEDS: CYANOCOBALAMIN (VITAMIN B-12) 250 MCG TABLET PO SCH (08:40)
[2017-07-05] MEDS: Azithromycin 500 MG in Sodium Chloride 0.9% 250 ML IVPB SCH (12:20)
[2017-07-05 15:59] VITALS: RESP 20
--- NOTE | 2017-07-05 16:11 | CP.PCM.PN ---
Subjective - Date & Time of Evaluation Date of Evaluation: 07/05/17 Time of Evaluation: 15:00 - Subjective Subjective: F/U Respiratory Failure/ PNA cough scanty productive , Chest congestion, feels like having difficulty to bring up flegm ,no SOB , YANEZ, Objective - Vital Signs/Intake and Output Vital Signs (last 24 hours): Temp Pulse Resp BP Pulse Ox 98.4 F 102 H 20 155/74 H 95 07/05/17 15:59 07/05/17 15:59 07/05/17 15:59 07/05/17 15:59 07/05/17 15:59 - Medications Medications: Current Medications Acetaminophen (Tylenol 325mg Tab) 650 mg PO Q6H PRN PRN Reason: Pain, Mild (1-3) Last Admin: 06/26/17 01:06 Dose: 650 mg Albuterol/Ipratropium (Duoneb 3 Mg/0.5 Mg (3 Ml) Ud) 3 ml INH RQ4 [facility] Last Admin: 07/05/17 15:13 Dose: Not Given Aripiprazole (Abilify) 2 mg PO HS [facility] Last Admin: 07/04/17 22:30 Dose: 2 mg Diltiazem HCl (Cardizem) 30 mg PO TID [facility] Last Admin: 07/05/17 08:39 Dose: 30 mg Folic Acid (Folic Acid) 1 mg PO DAILY [facility] Last Admin: 07/05/17 08:40 Dose: 1 mg Ceftriaxone Sodium (Rocephin Iv 1 Gm Duplex) 50 mls @ 50 mls/hr IVPB DAILY [facility] PRN Reason: Protocol Last Admin: 07/05/17 08:37 Dose: 50 mls/hr Metronidazole (Flagyl 500mg/100ml Ns) 100 mls @ 100 mls/hr IVPB Q8 [facility] PRN Reason: Protocol Last Admin: 07/05/17 10:33 Dose: 100 mls/hr Lactulose (Enulose) 20 gm PO BID PRN PRN Reason: Constipation Last Admin: 07/05/17 08:40 Dose: 20 gm Mirtazapine (Remeron) 15 mg PO HS [facility] Last Admin: 07/04/17 22:30 Dose: 15 mg Pantoprazole Sodium (Protonix Ec Tab) 40 mg PO DAILY [facility] Last Admin: 07/05/17 08:40 Dose: 40 mg Thiamine HCl (Vitamin B1 Tab) 50 mg PO DAILY [facility] Last Admin: 07/05/17 08:41 Dose: 50 mg Venlafaxine HCl (Effexor Xr) 150 mg PO DAILY [facility] Last Admin: 07/05/17 08:40 Dose: 150 mg - Labs Labs: 07/03/17 04:51 07/03/17 04:51 PT 11.0 Seconds (9.8-13.1) 06/25/17 17:50 INR 1.0 (0.9-1.2) 06/25/17 17:50 APTT 28.2 Seconds (25.6-37.1) 06/25/17 17:50 - Constitutional Appears: Well, No Acute Distress - Head Exam Head Exam: NORMAL INSPECTION - Eye Exam Eye Exam: PERRL - ENT Exam ENT Exam: Normal Exam - Neck Exam Neck Exam: Normal Inspection - Respiratory Exam Respiratory Exam: Decreased Breath Sounds, Rhonchi (scattered) - Cardiovascular Exam Cardiovascular Exam: REGULAR RHYTHM - GI/Abdominal Exam GI & Abdominal Exam: Soft, Normal Bowel Sounds - Extremities Exam Extremities Exam: Normal Inspection - Back Exam Back Exam: NORMAL INSPECTION - Neurological Exam Neurological Exam: Alert, CN II-XII Intact, Oriented x3 - Psychiatric Exam Psychiatric exam: Normal Affect - Skin Skin Exam: Normal Color, Warm Assessment and Plan (1) Acute respiratory failure with hypercapnia Status: Resolved (2) CAP (community acquired pneumonia) Status: Acute (3) COPD exacerbation Status: Acute (4) Pleural effusion, bilateral Status: Acute - Assessment and Plan (Free Text) Plan: continue Zithromax , Rocephin, DuoNeb , Clinda and rest of treatment
--- NOTE | 2017-07-05 21:28 | CP.PCM.PN ---
Subjective - Date & Time of Evaluation Date of Evaluation: 07/05/17 Time of Evaluation: 16:00 - Subjective Subjective: Pt doing better today. Still c/o of SOB but able to get oob to chair with O2 on. Abdomen feels better. Had a BM. Objective - Vital Signs/Intake and Output Vital Signs (last 24 hours): Temp Pulse Resp BP Pulse Ox 98.4 F 102 H 20 155/74 H 95 07/05/17 17:00 07/05/17 15:59 07/05/17 15:59 07/05/17 15:59 07/05/17 15:59 - Medications Medications: Current Medications Acetaminophen (Tylenol 325mg Tab) 650 mg PO Q6H PRN PRN Reason: Pain, Mild (1-3) Last Admin: 06/26/17 01:06 Dose: 650 mg Albuterol/Ipratropium (Duoneb 3 Mg/0.5 Mg (3 Ml) Ud) 3 ml INH RQ4 [facility] Last Admin: 07/05/17 19:02 Dose: 3 ml Aripiprazole (Abilify) 2 mg PO HS [facility] Last Admin: 07/04/17 22:30 Dose: 2 mg Diltiazem HCl (Cardizem) 30 mg PO TID [facility] Last Admin: 07/05/17 16:36 Dose: 30 mg Folic Acid (Folic Acid) 1 mg PO DAILY [facility] Last Admin: 07/05/17 08:40 Dose: 1 mg Ceftriaxone Sodium (Rocephin Iv 1 Gm Duplex) 50 mls @ 50 mls/hr IVPB DAILY [facility] PRN Reason: Protocol Last Admin: 07/05/17 08:37 Dose: 50 mls/hr Metronidazole (Flagyl 500mg/100ml Ns) 100 mls @ 100 mls/hr IVPB Q8 [facility] PRN Reason: Protocol Last Admin: 07/05/17 16:32 Dose: 100 mls/hr Lactulose (Enulose) 20 gm PO BID PRN PRN Reason: Constipation Last Admin: 07/05/17 08:40 Dose: 20 gm Mirtazapine (Remeron) 15 mg PO HS [facility] Last Admin: 07/04/17 22:30 Dose: 15 mg Pantoprazole Sodium (Protonix Ec Tab) 40 mg PO DAILY [facility] Last Admin: 07/05/17 08:40 Dose: 40 mg Thiamine HCl (Vitamin B1 Tab) 50 mg PO DAILY [facility] Last Admin: 07/05/17 08:41 Dose: 50 mg Venlafaxine HCl (Effexor Xr) 150 mg PO DAILY [facility] Last Admin: 07/05/17 08:40 Dose: 150 mg - Labs Labs: 07/03/17 04:51 07/03/17 04:51 PT 11.0 Seconds (9.8-13.1) 06/25/17 17:50 INR 1.0 (0.9-1.2) 06/25/17 17:50 APTT 28.2 Seconds (25.6-37.1) 06/25/17 17:50 - Constitutional Appears: Well, No Acute Distress - Head Exam Head Exam: ATRAUMATIC, NORMOCEPHALIC - Respiratory Exam Respiratory Exam: Decreased Breath Sounds, Rhonchi (scattered), NORMAL BREATHING PATTERN - Cardiovascular Exam Cardiovascular Exam: REGULAR RHYTHM, +S1, +S2 - GI/Abdominal Exam GI & Abdominal Exam: Distended, Normal Bowel Sounds - Extremities Exam Extremities Exam: Full ROM, Normal Inspection - Neurological Exam Neurological Exam: Alert, Oriented x3 - Psychiatric Exam Psychiatric exam: Normal Affect, Normal Mood - Skin Skin Exam: Normal Color, Warm Assessment and Plan (1) Acute respiratory failure with hypercapnia Assessment & Plan: SOB improved still requires O2 continue Is physical therapy Status: Resolved (2) CAP (community acquired pneumonia) Assessment & Plan: continue antibiotics ID/pulmonoly consults appreciated PT dvt prophylaxis Status: Acute (3) COPD exacerbation Assessment & Plan: improved continue duonebs taper steriods Status: Acute (4) Ileus Assessment & Plan: passing flatus, had BM lactulose bid oob to ambulate Status: Acute
[2017-07-06] MEDS: metroNIDAZOLE 500mg/100ml NS 100 ML IVPB SCH ×3 (00:51→16:31)
[2017-07-06] MEDS: Albuterol-Ipratrop 3 mg / 0.5 (3 ml) UD INH SCH ×4 (03:03→15:21)
[2017-07-06 08:12] LABS: EOS # 0.1 K/uL (0.0-0.7); EOS % 1.1 % (0.0-4.0); HEMOGLOBIN 12.2 g/dL (12.0-18.0); LYMPH # 1.9 K/uL (1.0-4.3); LYMPH % 15.5 % (20.0-40.0); MEAN CORPUSCULAR HEMOGLOBIN 30.5 pg (27.0-31.0); MEAN PLATELET VOLUME 8.2 fl (7.2-11.7); MONO # 1.2 K/uL (0.0-0.8); MONO % 9.8 % (0.0-10.0); NEUT # 8.8 K/uL (1.8-7.0); NEUT % 73.6 % (50.0-75.0); NRBC % 0.1 % (0.0-0.0); RED CELL DISTRIBUTION WIDTH 15.4 % (11.5-14.5)
[2017-07-06 08:24] LABS: ALB/GLOB RATIO 1.2 (1.0-2.1); ALT/SGPT 78 U/L (21-72); AST/SGOT 31 U/L (17-59); BLOOD UREA NITROGEN 24 mg/dl (9-20); CALCIUM 8.3 mg/dL (8.4-10.2); GFR AFRICAN-AMERICAN > 60; GFR NON-AFRICAN AMERICAN > 60
[2017-07-06] MEDS: CYANOCOBALAMIN (VITAMIN B-12) 250 MCG TABLET PO SCH (08:49)
[2017-07-06] MEDS: Venlafaxine 150 mg ER Cap PO SCH (08:49)
[2017-07-06] MEDS: Pantoprazole 40 mg EC Tab PO SCH (08:49)
[2017-07-06] MEDS: cefTRIAXone IV 1 gm in Dextros 50 ML IVPB SCH (09:00)
--- NOTE | 2017-07-06 13:45 | CP.PCM.PN ---
Subjective - Date & Time of Evaluation Date of Evaluation: 07/06/17 Time of Evaluation: 07:00 - Subjective Subjective: awake alert afebrile nad Objective - Vital Signs/Intake and Output Vital Signs (last 24 hours): Temp Pulse Resp BP Pulse Ox 98 F 90 20 126/79 94 L 07/06/17 08:04 07/06/17 12:02 07/06/17 08:49 07/06/17 08:49 07/06/17 08:49 - Medications Medications: Current Medications Acetaminophen (Tylenol 325mg Tab) 650 mg PO Q6H PRN PRN Reason: Pain, Mild (1-3) Last Admin: 06/26/17 01:06 Dose: 650 mg Albuterol/Ipratropium (Duoneb 3 Mg/0.5 Mg (3 Ml) Ud) 3 ml INH RQ4 [facility] Last Admin: 07/06/17 11:33 Dose: 3 ml Aripiprazole (Abilify) 2 mg PO HS [facility] Last Admin: 07/05/17 21:29 Dose: 2 mg Diltiazem HCl (Cardizem) 30 mg PO TID [facility] Last Admin: 07/06/17 12:02 Dose: 30 mg Folic Acid (Folic Acid) 1 mg PO DAILY [facility] Last Admin: 07/06/17 08:49 Dose: 1 mg Metronidazole (Flagyl 500mg/100ml Ns) 100 mls @ 100 mls/hr IVPB Q8 [facility] PRN Reason: Protocol Last Admin: 07/06/17 08:51 Dose: 100 mls/hr Lactulose (Enulose) 20 gm PO BID PRN PRN Reason: Constipation Last Admin: 07/05/17 08:40 Dose: 20 gm Mirtazapine (Remeron) 15 mg PO HS [facility] Last Admin: 07/05/17 21:29 Dose: 15 mg Pantoprazole Sodium (Protonix Ec Tab) 40 mg PO DAILY [facility] Last Admin: 07/06/17 08:49 Dose: 40 mg Thiamine HCl (Vitamin B1 Tab) 50 mg PO DAILY [facility] Last Admin: 07/06/17 08:49 Dose: 50 mg Venlafaxine HCl (Effexor Xr) 150 mg PO DAILY [facility] Last Admin: 07/06/17 08:49 Dose: 150 mg - Labs Labs: 07/06/17 05:50 02/11/18 05:50 PT 11.0 Seconds (9.8-13.1) 06/25/17 17:50 INR 1.0 (0.9-1.2) 06/25/17 17:50 APTT 28.2 Seconds (25.6-37.1) 06/25/17 17:50 - Constitutional Appears: Non-toxic, Chronically Ill - Head Exam Head Exam: NORMOCEPHALIC - Eye Exam Eye Exam: PERRL - ENT Exam ENT Exam: Mucous Membranes Dry - Neck Exam Neck Exam: absent: Thyromegaly - Respiratory Exam Respiratory Exam: Decreased Breath Sounds, Rhonchi - Cardiovascular Exam Cardiovascular Exam: REGULAR RHYTHM - GI/Abdominal Exam GI & Abdominal Exam: Distended, Soft Assessment and Plan (1) Acute respiratory failure with hypercapnia Status: Resolved (2) CAP (community acquired pneumonia) Status: Acute (3) Pleural effusion, bilateral Status: Acute (4) COPD exacerbation Status: Acute (5) HTN (hypertension) Status: Chronic - Assessment and Plan (Free Text) Assessment: improving s/p resp failure consider d/c antibiotics
--- NOTE | 2017-07-06 15:58 | CP.PCM.PN ---
Subjective - Date & Time of Evaluation Date of Evaluation: 07/06/17 Time of Evaluation: 12:30 - Subjective Subjective: cough on and offf , less chest congestion, no SOB , no YANEZ Objective - Vital Signs/Intake and Output Vital Signs (last 24 hours): Temp Pulse Resp BP Pulse Ox 98 F 90 20 126/79 94 L 07/06/17 08:04 07/06/17 12:02 07/06/17 08:49 07/06/17 08:49 07/06/17 08:49 - Medications Medications: Current Medications Acetaminophen (Tylenol 325mg Tab) 650 mg PO Q6H PRN PRN Reason: Pain, Mild (1-3) Last Admin: 06/26/17 01:06 Dose: 650 mg Albuterol/Ipratropium (Duoneb 3 Mg/0.5 Mg (3 Ml) Ud) 3 ml INH RQ4 [facility] Last Admin: 07/06/17 15:21 Dose: 3 ml Aripiprazole (Abilify) 2 mg PO HS [facility] Last Admin: 07/05/17 21:29 Dose: 2 mg Diltiazem HCl (Cardizem) 30 mg PO TID [facility] Last Admin: 07/06/17 12:02 Dose: 30 mg Folic Acid (Folic Acid) 1 mg PO DAILY [facility] Last Admin: 07/06/17 08:49 Dose: 1 mg Metronidazole (Flagyl 500mg/100ml Ns) 100 mls @ 100 mls/hr IVPB Q8 [facility] PRN Reason: Protocol Last Admin: 07/06/17 08:51 Dose: 100 mls/hr Lactulose (Enulose) 20 gm PO BID PRN PRN Reason: Constipation Last Admin: 07/05/17 08:40 Dose: 20 gm Mirtazapine (Remeron) 15 mg PO HS [facility] Last Admin: 07/05/17 21:29 Dose: 15 mg Pantoprazole Sodium (Protonix Ec Tab) 40 mg PO DAILY [facility] Last Admin: 07/06/17 08:49 Dose: 40 mg Thiamine HCl (Vitamin B1 Tab) 50 mg PO DAILY [facility] Last Admin: 07/06/17 08:49 Dose: 50 mg Venlafaxine HCl (Effexor Xr) 150 mg PO DAILY [facility] Last Admin: 07/06/17 08:49 Dose: 150 mg - Labs Labs: 07/06/17 05:50 07/06/17 05:50 PT 11.0 Seconds (9.8-13.1) 06/25/17 17:50 INR 1.0 (0.9-1.2) 06/25/17 17:50 APTT 28.2 Seconds (25.6-37.1) 06/25/17 17:50 - Constitutional Appears: No Acute Distress - Head Exam Head Exam: NORMAL INSPECTION - Eye Exam Eye Exam: PERRL - ENT Exam ENT Exam: Normal Exam - Neck Exam Neck Exam: Normal Inspection - Respiratory Exam Respiratory Exam: Decreased Breath Sounds (at bases), Rhonchi (scattered) - Cardiovascular Exam Cardiovascular Exam: REGULAR RHYTHM - GI/Abdominal Exam GI & Abdominal Exam: Soft, Normal Bowel Sounds - Extremities Exam Extremities Exam: Normal Inspection - Back Exam Back Exam: NORMAL INSPECTION - Neurological Exam Neurological Exam: Alert, Oriented x3. absent: Motor Sensory Deficit - Psychiatric Exam Psychiatric exam: Normal Mood - Skin Skin Exam: Warm Assessment and Plan (1) Acute respiratory failure with hypercapnia Status: Resolved (2) CAP (community acquired pneumonia) Status: Acute (3) COPD exacerbation Status: Acute (4) Pleural effusion, bilateral Status: Acute - Assessment and Plan (Free Text) Plan: as per ID Dc antibiotics, continue rest of treatment , CXR am
--- NOTE | 2017-07-06 16:38 | CP.PCM.PN ---
Subjective - Date & Time of Evaluation Date of Evaluation: 07/06/17 Time of Evaluation: 14:05 - Subjective Subjective: Pt doing better, less SOB. Able to ambulate to bathroom with assistance. continues to use O2 Objective - Vital Signs/Intake and Output Vital Signs (last 24 hours): Temp Pulse Resp BP Pulse Ox 98 F 90 20 120/76 94 L 07/06/17 08:04 07/06/17 16:33 07/06/17 08:49 07/06/17 16:33 07/06/17 08:49 - Medications Medications: Current Medications Acetaminophen (Tylenol 325mg Tab) 650 mg PO Q6H PRN PRN Reason: Pain, Mild (1-3) Last Admin: 06/26/17 01:06 Dose: 650 mg Aripiprazole (Abilify) 2 mg PO HS [facility] Last Admin: 07/05/17 21:29 Dose: 2 mg Diltiazem HCl (Cardizem) 30 mg PO TID [facility] Last Admin: 07/06/17 16:33 Dose: 30 mg Folic Acid (Folic Acid) 1 mg PO DAILY [facility] Last Admin: 07/06/17 08:49 Dose: 1 mg Metronidazole (Flagyl 500mg/100ml Ns) 100 mls @ 100 mls/hr IVPB Q8 [facility] PRN Reason: Protocol Last Admin: 07/06/17 16:31 Dose: 100 mls/hr Lactulose (Enulose) 20 gm PO BID PRN PRN Reason: Constipation Last Admin: 07/05/17 08:40 Dose: 20 gm Mirtazapine (Remeron) 15 mg PO [facility] Last Admin: 07/05/17 21:29 Dose: 15 mg Pantoprazole Sodium (Protonix Ec Tab) 40 mg PO DAILY [facility] Last Admin: 07/06/17 08:49 Dose: 40 mg Thiamine HCl (Vitamin B1 Tab) 50 mg PO DAILY [facility] Last Admin: 07/06/17 08:49 Dose: 50 mg Venlafaxine HCl (Effexor Xr) 150 mg PO DAILY [facility] Last Admin: 07/06/17 08:49 Dose: 150 mg - Labs Labs: 07/06/17 05:50 07/06/17 05:50 PT 11.0 Seconds (9.8-13.1) 06/25/17 17:50 INR 1.0 (0.9-1.2) 06/25/17 17:50 APTT 28.2 Seconds (25.6-37.1) 06/25/17 17:50 - Constitutional Appears: Well, No Acute Distress - Respiratory Exam Respiratory Exam: Decreased Breath Sounds (Lower lobes), Rhonchi (scattered) - Cardiovascular Exam Cardiovascular Exam: REGULAR RHYTHM, +S1, +S2 - GI/Abdominal Exam GI & Abdominal Exam: Soft (less distended), Normal Bowel Sounds - Extremities Exam Extremities Exam: Full ROM - Neurological Exam Neurological Exam: Alert, Awake, Oriented x3 - Psychiatric Exam Psychiatric exam: Normal Affect, Normal Mood - Skin Skin Exam: Dry, Normal Color, Warm Assessment and Plan (1) Acute respiratory failure with hypercapnia Assessment & Plan: less SOB able to ambulate a short distance if remains stable will plan for d/c in am Status: Resolved (2) CAP (community acquired pneumonia) Assessment & Plan: Cxr improved antibiotics d/c'd oob to chair PT dvt prophylaxis Status: Acute (3) COPD exacerbation Assessment & Plan: improved duonebs taper steroids PT Status: Acute (4) Ileus Assessment & Plan: resolved having BMs oob to ambulate Status: Acute
[2017-07-07] MEDS: Albuterol-Ipratrop 3 mg / 0.5 (3 ml) UD INH SCH ×5 (00:26→15:19)
[2017-07-07] MEDS: metroNIDAZOLE 500mg/100ml NS 100 ML IVPB SCH ×2 (00:44→09:35)
[2017-07-07 08:31] VITALS: TEMP 98.2
[2017-07-07] MEDS: Pantoprazole 40 mg EC Tab PO SCH (09:40)
[2017-07-07] MEDS: Venlafaxine 150 mg ER Cap PO SCH (09:40)
[2017-07-07 16:06] VITALS: BP 113/57; PULSE 116; O2SAT 96
--- NOTE | 2017-07-07 23:42 | CP.PCM.DIS ---
Provider - Provider Date of Admission: 06/25/17 21:15 Attending physician: Shaan Roman MD Time Spent in preparation of Discharge (in minutes): 25 Diagnosis - Discharge Diagnosis (1) Acute respiratory failure with hypercapnia Status: Resolved Priority: High (2) CAP (community acquired pneumonia) Status: Resolved Priority: High (3) COPD exacerbation Status: Resolved Priority: High (4) Ileus Status: Resolved Priority: Medium Hospital Course - Lab Results Lab Results: Micro Results 07/03/17 18:27 Naris MRSA Culture (Admit) - Final MRSA NOT DETECTED 06/29/17 14:00 Trachasp Gram Stain - Final 06/29/17 14:00 Trachasp Sputum Culture - Final NORMAL ORAL PAXTON 06/25/17 17:30 Blood-Venous Blood Culture - Final NO GROWTH AFTER 5 DAYS 06/25/17 17:30 Blood-Venous Gram Stain - Final TEST NOT PERFORMED 06/25/17 17:50 Blood-Venous Blood Culture - Final NO GROWTH AFTER 5 DAYS 06/25/17 17:50 Blood-Venous Gram Stain - Final TEST NOT PERFORMED 06/29/17 14:00 Naris MRSA Culture (Admit) - Final MRSA NOT DETECTED 06/29/17 14:00 Urine,Catheterized Urine Culture - Final No Growth (<1,000 CFU/ML) Most Recent Lab Values WBC 12.0 K/uL (4.8-10.8) H 07/06/17 05:50 RBC 4.00 Mil/uL (4.40-5.90) L 07/06/17 05:50 Hgb 12.2 g/dL (12.0-18.0) 07/06/17 05:50 Hct 38.0 % (35.0-51.0) 07/06/17 05:50 MCV 95.0 fl (80.0-94.0) H 07/06/17 05:50 MCH 30.5 pg (27.0-31.0) 07/06/17 05:50 MCHC 32.0 g/dL (33.0-37.0) L 07/06/17 05:50 RDW 15.4 % (11.5-14.5) H 07/06/17 05:50 Plt Count 151 K/uL (130-400) 07/06/17 05:50 MPV 8.2 fl (7.2-11.7) 07/06/17 05:50 Neut % (Auto) 73.6 % (50.0-75.0) 07/06/17 05:50 Lymph % (Auto) 15.5 % (20.0-40.0) L 07/06/17 05:50 [place] % (Auto) 9.8 % (0.0-10.0) 07/06/17 05:50 Eos % (Auto) 1.1 % (0.0-4.0) 07/06/17 05:50 Baso % (Auto) 0.0 % (0.0-2.0) 07/06/17 05:50 Neut # (Auto) 8.8 K/uL (1.8-7.0) H 07/06/17 05:50 Lymph # (Auto) 1.9 K/uL (1.0-4.3) 07/06/17 05:50 [place] # (Auto) 1.2 K/uL (0.0-0.8) H 07/06/17 05:50 Eos # (Auto) 0.1 K/uL (0.0-0.7) 07/06/17 05:50 Baso # (Auto) 0.0 K/uL (0.0-0.2) 07/06/17 05:50 Neutrophils % (Manual) 84 % (42-75) H 07/02/17 04:15 Band Neutrophils % 2 % (0-2) 07/02/17 04:15 Lymphocytes % (Manual) 4 % (20-50) L 07/02/17 04:15 Monocytes % (Manual) 7 % (0-10) 07/02/17 04:15 Metamyelocytes % 2 % (0-0) H 07/02/17 04:15 Myelocytes % 1 % (0-0) H 07/02/17 04:15 Toxic Granulation Present 07/02/17 04:15 Platelet Estimate Normal (NORMAL) 07/02/17 04:15 Hypochromasia (manual) Slight 07/02/17 04:15 Anisocytosis (manual) Slight 07/02/17 04:15 Macrocytosis (manual) Slight 06/27/17 15:53 PT 11.0 Seconds (9.8-13.1) 06/25/17 17:50 INR 1.0 (0.9-1.2) 06/25/17 17:50 APTT 28.2 Seconds (25.6-37.1) 06/25/17 17:50 pCO2 55 mm/Hg (35-45) H 07/01/17 05:17 pO2 118 mm/Hg (80-100) H 07/01/17 05:17 HCO3 34.5 mmol/L (21-28) H 07/01/17 05:17 ABG pH 7.45 (7.35-7.45) 07/01/17 05:17 ABG Total CO2 39.9 mmol/L (22-28) H 07/01/17 05:17 ABG O2 Saturation 98.9 % (95-98) H 07/01/17 05:17 ABG O2 Content 15.8 ML/dL (15-23) 07/01/17 05:17 ABG Base Excess 12.3 mmol/L (-2.0-3.0) H 07/01/17 05:17 ABG Hemoglobin 11.5 g/dL (11.7-17.4) L 07/01/17 05:17 ABG Carboxyhemoglobin 0.8 % (0.5-1.5) 07/01/17 05:17 POC ABG HHb (Measured) 1.1 % (0.0-5.0) 07/01/17 05:17 ABG Methemoglobin 1.3 % (0.0-3.0) 07/01/17 05:17 ABG O2 Capacity 16.0 mL/dL (16-24) 07/01/17 05:17 Johan Test Yes 07/01/17 05:17 ABG Potassium 4.0 mmol/L (3.6-5.2) 06/29/17 11:10 VBG pH 7.31 (7.32-7.43) L 06/25/17 18:08 VBG pCO2 52 mmHg (40-60) 06/25/17 18:08 VBG HCO3 24.3 mmol/L 06/25/17 18:08 VBG Total CO2 27.8 mmol/L (22-28) 06/25/17 18:08 VBG O2 Sat (Calc) 99.1 % (40-65) H 06/25/17 18:08 VBG Base Excess -0.8 mmol/L (0.0-2.0) L 06/25/17 18:08 VBG Potassium 4.3 mmol/L (3.6-5.2) 06/25/17 18:08 A-a O2 Difference 98.0 mm/Hg 07/01/17 05:17 Hgb O2 Saturation 96.7 % (95.0-98.0) 07/01/17 05:17 Sodium 141.0 mmol/L (132-148) 06/29/17 11:10 Chloride 104.0 mmol/L (98-107) 06/29/17 11:10 Glucose 228 mg/dL (75-110) H 06/29/17 11:10 Lactate 4.9 mmol/L (0.7-2.1) H* 06/29/17 11:10 Vent Mode Cpap 07/01/17 05:17 Mechanical Rate 15 06/30/17 05:10 FiO2 40.0 % 07/01/17 05:17 Tidal Volume 450 06/30/17 05:10 PEEP 5 07/01/17 05:17 Pressure Support 15 07/01/17 05:17 Crit Value Called To Sorin fagan 06/29/17 11:10 Crit Value Called By 15 06/29/17 11:10 Crit Value Read Back Y 06/29/17 11:10 Blood Gas Notified Time 1113 06/29/17 11:10 Sodium 138 mmol/l (132-148) 07/06/17 05:50 Potassium 4.0 MMOL/L (3.6-5.0) 07/06/17 05:50 Chloride 99 mmol/L (98-107) 07/06/17 05:50 Carbon Dioxide 33 mmol/L (22-30) H 07/06/17 05:50 Anion Gap 10 (10-20) 07/06/17 05:50 BUN 24 mg/dl (9-20) H 07/06/17 05:50 Creatinine 0.7 mg/dl (0.8-1.5) L 07/06/17 05:50 Est GFR ( Amer) > 60 07/06/17 05:50 Est GFR (Non-Af Amer) > 60 07/06/17 05:50 POC Glucose (mg/dL) 199 mg/dL (65-110) H 06/29/17 10:58 Random Glucose 98 mg/dL (75-110) 07/06/17 05:50 Lactic Acid 2.5 MMOL/L (0.7-2.1) H 06/27/17 16:58 Calcium 8.3 mg/dL (8.4-10.2) L 07/06/17 05:50 Total Bilirubin 0.5 mg/dl (0.2-1.3) 07/06/17 05:50 AST 31 U/L (17-59) 07/06/17 05:50 ALT 78 U/L (21-72) H D 07/06/17 05:50 Alkaline Phosphatase 36 U/L (38-126) L 07/06/17 05:50 Ammonia 25 umo/L (16-60) 06/30/17 11:45 Troponin I < 0.0120 ng/mL (0.00-0.120) 06/25/17 17:50 NT-Pro-B Natriuret Pep 229 pg/ml (0-900) 06/25/17 17:50 Total Protein 5.5 G/DL (6.3-8.2) L 07/06/17 05:50 Albumin 3.0 g/dL (3.5-5.0) L 07/06/17 05:50 Globulin 2.5 gm/dL (2.2-3.9) 07/06/17 05:50 Albumin/Globulin Ratio 1.2 (1.0-2.1) 07/06/17 05:50 Triglycerides 71 mg/DL (0-149) 06/26/17 05:10 Cholesterol 242 mg/dL (0-199) H 06/26/17 05:10 LDL Cholesterol Direct 143 mg/dL (0-129) H 06/26/17 05:10 HDL Cholesterol 79 MG/DL (30-70) H 06/26/17 05:10 Vitamin B12 638 pg/mL (239-931) 06/26/17 08:15 Procalcitonin < 0.05 NG/ML (0.19-0.49) L 06/30/17 11:45 TSH 3rd Generation 0.67 mIU/ML (0.46-4.68) 06/26/17 05:10 Arterial Blood Potassium 4.0 mmol/L (3.6-5.2) 06/29/17 11:10 Venous Blood Potassium 4.3 mmol/L (3.6-5.2) 06/25/17 18:08 Urine Color Yellow (YELLOW) 06/29/17 14:00 Urine Clarity Slighty-cloudy (Clear) 06/29/17 14:00 Urine pH 6.0 (5.0-8.0) 06/29/17 14:00 Ur Specific [place] 1.025 (1.003-1.030) 06/29/17 14:00 Urine Protein 30 mg/dL (NEGATIVE) 06/29/17 14:00 Urine Glucose (UA) 50 mg/dL (Normal) 06/29/17 14:00 Urine Ketones Negative mg/dL (NEGATIVE) 06/29/17 14:00 Urine Blood Small (NEGATIVE) 06/29/17 14:00 Urine Nitrate Negative (NEGATIVE) 06/29/17 14:00 Urine Bilirubin Negative (NEGATIVE) 06/29/17 14:00 Urine Urobilinogen 0.2-1.0 mg/dL (0.2-1.0) 06/29/17 14:00 Ur Leukocyte Esterase Neg Nancy/uL (Negative) 06/29/17 14:00 Urine RBC (Auto) 6 /hpf (0-3) H 06/29/17 14:00 Urine Microscopic WBC 2 /hpf (0-5) 06/29/17 14:00 Ur Squamous Epith Cells < 1 /hpf (0-5) 06/29/17 14:00 Urine Bacteria Rare (<OCC) 06/29/17 14:00 Hepatitis A IgM Ab Negative (NEGATIVE) 06/30/17 11:45 Hep Bs Antigen Negative (NEGATIVE) 06/30/17 11:45 Hep B Core IgM Ab Negative (NEGATIVE) 06/30/17 11:45 Hepatitis C Antibody Negative (NEGATIVE) 06/30/17 11:45 HIV 1&2 Antibody Screen Negative (NEGATIVE) 06/30/17 11:45 Influenza Typ A,B (EIA) Negative for flu a/b (NEGATIVE) 06/25/17 17:50 Blood Type A POSITIVE 06/25/17 17:50 Antibody Screen Negative 06/25/17 17:50 BBK History Checked No verified bt 06/25/17 17:50 - Hospital Course Hospital Course: A 77 year old male with a pmhx of HTN, COPD, emphysema, asthma who was brought to the ED due SOB and chest tightness. The patient was admitted for COPD exacerbation and was found to have pneumonia. 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 The patient was then transferred to the ICU and was intubated. the patient was also started on a Cardizem drip to manage the tachycardia. The patient was treated with antibiotics as well as respiratory treatments and steroids for COPD exacerbation. The patient was successfully extubated and was transferred to the med/surg unit on O2 via nasal cannula. The patient continued to improve on treatment and was able to participate in physical therapy. The patient was discharged to [facility] for continued physical conditioning. Discharge Exam - Head Exam Head Exam: NORMAL INSPECTION - Respiratory Exam Respiratory Exam: Decreased Breath Sounds (lower lobes), Rhonchi (slight - scattered) - Cardiovascular Exam Cardiovascular Exam: REGULAR RHYTHM, +S1, +S2 - Neurological Exam Neurological exam: Alert, Oriented x3 - Psychiatric Exam Psychiatric exam: Normal Affect, Normal Mood - Skin Skin Exam: Normal Color, Warm Discharge Plan - Follow Up Plan Condition: GOOD Disposition: TRANSF TO SNF
--- NOTE | 2017-07-09 08:04 | PQF SEPSIS ---
Dr. Roman consultation dated 06/[address] Billingsley documented "sepsis from community acquired pneumonia." After study was pt treated for a diagnosis of sepsis? This form is a permanent part of the medical record Clarification of your documentation is requested to better reflect the severity of illness and intensity of treatment of your patient. Indicators present [] Temp < 96.8 or > 100.4 [] WBC count > 12,000/mm3 or <000/mm3 or 10% immature neutrophils [] Heart Rate > 90 [] Respiratory Rate > 20 [] Fever or hypothermia [] Chills [] Positive blood cultures [] Hypotension [] Metabolic acidosis (Elevated lactate level, anion gap or reduced blood pH) [] Acute confusion /Altered Mental Status [] Shock [] Other: [] Location in the medical record that reflects the above clinical findings: [] Treatment Provided: [] PHYSICIAN'S RESPONSE Based on your medical judgment of the clinical indicators outlined above, are you treating this patient for a known or suspected: [X] Sepsis / Septicemia Please specify organism if known [] [] SIRS (Systemic Inflammatory Response Syndrome) [] Severe Sepsis (Sepsis with Associated Organ Dysfunction) [] Fever of Unknown Origin [] Other, please indicate: [] [] If Unable to Determine, please check the box, sign and date. Present On Admission (POA) Indicator: [X] Present at the time of admission [] Not present at the time of admission [] Clinically Undetermined In responding to this query, please exercise your independent professional judgment. The fact that a question is asked does not imply that any particular answer is desired or expected. Thank you for your clarification on this documentation. If you have any questions please call:[ ] * Thank you, [ ]Rama Wilkerson air export coordinator HALIMA
== END 2017-07-07 16:43 | DRG 871 ==
LOC: EDBD 17:02 → H.ER 17:02 → H.ERHOLD 21:15 → H.TEL 22:44 → H.ICU/CCU 06-29 11:08 → H.MEDSURG1 07-03 18:56
PROVIDERS: ADMIT Internal Medicine; ATTEND Internal Medicine
PROC: 0BH17EZ Insertion of Endotracheal Airway into Trachea, Via Natural or Artificial Opening (ICD-10-PCS; principal; 2017-06-29)
PROC: 5A1935Z Respiratory Ventilation, Less than 24 Consecutive Hours (ICD-10-PCS; 2017-06-29)
DX: A41.9 Sepsis, unspecified organism (principal); J96.02 Acute respiratory failure with hypercapnia; J18.9 Pneumonia, unspecified organism; J44.0 Chronic obstructive pulmonary disease with (acute) lower respiratory infection; J44.1 Chronic obstructive pulmonary disease with (acute) exacerbation; K56.7 Ileus, unspecified; J45.909 Unspecified asthma, uncomplicated; F41.9 Anxiety disorder, unspecified; F32.9 Major depressive disorder, single episode, unspecified; I10 Essential (primary) hypertension; Z96.652 Presence of left artificial knee joint; Z87.891 Personal history of nicotine dependence; Y95 Nosocomial condition; R73.9 Hyperglycemia, unspecified; J40 Bronchitis, not specified as acute or chronic

== ENCOUNTER 2017-07-14 17:35 | Inpatient (IN) | payer OTHER, MEDICAID ==
[2017-07-14 17:36] VITALS: BMI 25.4
[2017-07-14] MEDS ORDERED: Albuterol-Ipratrop 3 mg / 0.5 (3 ml) UD INH STA (18:17)
[2017-07-14] MEDS ORDERED: Magnesium Sulfate 2 gm/50 ml 2 GM/50 ML BAG IVPB ONE (18:18)
[2017-07-14] MEDS ORDERED: Albuterol-Ipratrop 3 mg / 0.5 (3 ml) UD ONE (18:24)
[2017-07-14] MEDS ORDERED: Magnesium Sulfate 2 gm/50 ml 2 GM/50 ML BAG ONE (18:25)
[2017-07-14 18:32] LABS: ABG ALLEN TEST YES; ARTERIAL BLOOD GAS HCO3 29.1 mmol/L (21-28); ARTERIAL BLOOD GAS O2 SAT 97.6 % (95-98); ARTERIAL BLOOD GAS PCO2 48 mm/Hg (35-45); ARTERIAL BLOOD GAS PH 7.42 (7.35-7.45); ARTERIAL BLOOD GAS PO2 71 mm/Hg (80-100); ARTERIAL BLOOD GAS TCO2 32.6 mmol/L (22-28)
[2017-07-14 18:50] LABS: ALB/GLOB RATIO 1.2 (1.0-2.1); ALBUMIN 3.8 g/dL (3.5-5.0); ALT/SGPT 69 U/L (21-72); AST/SGOT 34 U/L (17-59); BLOOD UREA NITROGEN 17 mg/dl (9-20); CALCIUM 9.4 mg/dL (8.4-10.2); GFR AFRICAN-AMERICAN > 60; GFR NON-AFRICAN AMERICAN > 60
[2017-07-14 19:06] LABS: B-TYPE NATRIURETIC PEPTIDE 113 pg/ml (0-900); BASO % 0.4 % (0.0-2.0); EOS # 0.2 K/uL (0.0-0.7); EOS % 2.6 % (0.0-4.0); HEMOGLOBIN 11.1 g/dL (12.0-18.0); LYMPH # 0.5 K/uL (1.0-4.3); LYMPH % 6.5 % (20.0-40.0); MEAN CELL VOLUME 94.9 fl (80.0-94.0); MEAN CORPUSCULAR HEMOGLOBIN 30.4 pg (27.0-31.0); MEAN PLATELET VOLUME 7.3 fl (7.2-11.7); MONO # 0.1 K/uL (0.0-0.8); MONO % 1.9 % (0.0-10.0); NEUT # 6.6 K/uL (1.8-7.0); NEUT % 88.6 % (50.0-75.0); NRBC % 0.1 % (0.0-0.0); PLATELET COUNT 132 K/uL (130-400); RBC 3.66 Mil/uL (4.40-5.90); RED CELL DISTRIBUTION WIDTH 15.5 % (11.5-14.5); WHITE BLOOD COUNT 7.5 K/uL (4.8-10.8)
[2017-07-14 19:17] LABS: PARTIAL THROMBOPLASTIN TIME 26.6 Seconds (25.6-37.1); PROTHROMBIN TIME 10.6 Seconds (9.8-13.1)
[2017-07-14 19:40] LABS: BANDS 8 % (0-2); EOSINOPHIL 3 % (0-7); LYMPHOCYTE 7 % (20-50); MONOCYTE 1 % (0-10); NEUTROPHIL 80 % (42-75); REACTIVE LYMPHOCYTES 1 % (0-0); TOTAL CELLS COUNTED 100
[2017-07-14 19:41] LABS: ANISOCYTOSIS SLIGHT; POIKILOCYTOSIS SLIGHT; TARGET CELLS SLIGHT
[2017-07-14 19:42] LABS: HYPOCHROMIC SLIGHT; OVALOCYTES SLIGHT; TEARDROP CELLS SLIGHT
[2017-07-14 19:44] LABS: PLATELET ESTIMATE NORMAL (NORMAL)
--- NOTE | 2017-07-14 20:20 | ED PDOC ---
HPI: SOB/CHF/COPD Time Seen by Provider: 07/14/17 17:59 Chief Complaint (Nursing): Shortness Of Breath Chief Complaint (Provider): shortness of breat History Per: Family History/Exam Limitations: no limitations Onset/Duration Of Symptoms: Sudden Onset (1) Current Symptoms Are (Timing): Still Present Exacerbating Factor(s): Exertion, Coughing Associated Symptoms: Chills, Productive Cough, Heart Racing, Ankle/Leg Swelling , Light-headedness. denies: Fever Recently: Hospitalized Additional Complaint(s): shortness of breath and chest tightness, constant and increasing for 1 day, associated with severe RIGHT flank/rib pain with any movement or coughing. Subjective fever/chills. Similar symptoms as recent hospitalization for CHF and pneumonia. PMD Dr Roman Past Medical History Reviewed: Historical Data, Nursing Documentation, Vital Signs Vital Signs: Last Vital Signs Temp 98.2 F 07/14/17 17:48 Pulse 112 H 07/14/17 18:13 Resp 24 07/14/17 18:13 BP 129/73 07/14/17 18:13 Pulse Ox 100 07/14/17 20:20 - Medical History PMH: Anxiety, Asthma, COPD, Depression, Emphysema, HTN Denies: Chronic Kidney Disease - Surgical History Surgical History: Back Surgery - Family History Family History: States: Unknown Family Hx - Home Medications Home Medications: Ambulatory Orders Medication Instructions Recorded ARIPiprazole [Abilify] 2 mg PO HS 03/23/16 Mirtazapine [Remeron] 15 mg PO HS 03/23/16 Thiamine [Vitamin B1 Tab] 50 mg PO DAILY #0 03/23/16 Acetaminophen [Tylenol 325mg tab] 650 mg PO Q6H PRN 06/25/17 Albuterol 0.083% [Albuterol 0.083% 3 ml IH Q6H PRN 06/25/17 Inhal Linda (2.5 mg/3 ml) UD] Albuterol HFA [Ventolin HFA 90 2 puff IH Q6H PRN 06/25/17 mcg/actuation (8 g)] Fluticasone/Salmeterol 500/50 1 puff IH Q12H 06/25/17 [Advair Diskus 500/50] Folic Acid 1 mg PO DAILY 06/25/17 Tiotropium [Spiriva] 18 mcg IH DAILY 06/25/17 Venlafaxine [Effexor XR] 150 mg PO DAILY 06/25/17 Lactulose [Enulose] 20 gm PO BID PRN udc 07/07/17 Pantoprazole Sodium [Protonix] 40 mg PO DAILY 07/14/17 diltiaZEM CD [Cardizem CD] 240 mg PO DAILY 07/14/17 predniSONE [predniSONE Tab] 40 mg PO DAILY 07/14/17 - Allergies Allergies/Adverse Reactions: Allergies Allergy/AdvReac Type Severity Reaction Status Date / Time No Known Allergies Allergy Verified 07/14/17 18:02 Review of Systems ROS Statement: Except As Marked, All Systems Reviewed And Found Negative Constitutional: Positive for: Fever, Chills Cardiovascular: Positive for: Chest Pain, Orthopnea, Edema, Light Headedness Respiratory: Positive for: Cough, Shortness of Breath, Pleuritic Pain Gastrointestinal: Positive for: Nausea, Vomiting Physical Exam - Reviewed Nursing Documentation Reviewed: Yes Vital Signs Reviewed: Yes - Physical Exam Appears: Positive for: Uncomfortable, In Acute Distress Head Exam: Positive for: ATRAUMATIC, NORMOCEPHALIC Skin: Positive for: Warm, Dry Eye Exam: Positive for: EOMI, PERRL ENT: Positive for: Pharynx Is (clear) Neck: Positive for: Painless ROM, Supple Cardiovascular/Chest: Positive for: Tachycardia. Negative for: Murmur Respiratory: Positive for: Accessory Muscle Use, Rhonchi, Wheezing, Respiratory Distress Gastrointestinal/Abdominal: Positive for: Soft, Distended. Negative for: Tenderness Back: Positive for: Normal Inspection. Negative for: Decreased ROM Extremity: Positive for: Pedal Edema. Negative for: Deformity Lymphatic: Negative for: Adenopathy Neurologic/Psych: Positive for: Alert. Negative for: Motor/Sensory Deficits - Laboratory Results Result Diagrams: 07/14/17 18:37 07/14/17 18:37 - ECG ECG Rhythm: Positive for: Sinus Tachycardia, Nonspecific Changes O2 Sat by Pulse Oximetry: 93 Pulse Ox Interpretation: Normal (low normal, on room air) - Radiology X-Ray: Interpreted by Il X-Ray Interpretation: No Acute Disease - Progress ED Course And Treament: At bedside on arrival. Required immediate nebulizer treatments and IV solumedrol and IV magnesium Reviewed pt's chart. Pt was intubated during previous admission. Will aggressively treate COPD exacerbation Pt also seems somewhat anxious. Will continue to observation for possible panic attack contributing to symptoms. ABG with mild hypercarbia, and elevated lactic acid CXR with no acute findings. Initially improved. Then had sudden increased shortness of breath after coughing (which caused some increased pain.) Toradol ordered. - Critical Care Total Time (In Min): 30 Documented Critical Care: Time excludes all time spent performint seperately billable procedures Disposition - Clinical Impression Clinical Impression: COPD exacerbation Discussed With : Shaan Roman Counseled Patient/Family Regarding: Studies Performed, Diagnosis - Disposition Disposition Time: 19:30 - Pt Status Changed To: Hospital Disposition Of: Inpatient - Admit Certification Admit to Inpatient:: After my assessment, the patient will require hospitalization for at least two midnights. This is because of the severity of symptoms shown, intensity of services needed, and/or the medical risk in this patient being treated as an outpatient. - POA Present On Arrival: None
[2017-07-14 20:40] LABS: ABG ALLEN TEST YES; ARTERIAL BLOOD GAS HCO3 28.8 mmol/L (21-28); ARTERIAL BLOOD GAS O2 SAT 100.3 % (95-98); ARTERIAL BLOOD GAS PCO2 50 mm/Hg (35-45); ARTERIAL BLOOD GAS PO2 107 mm/Hg (80-100); ARTERIAL BLOOD GAS TCO2 32.5 mmol/L (22-28)
[2017-07-14] MEDS ORDERED: Insulin Regular 100 units/ml SC STA (20:42)
[2017-07-14] MEDS ORDERED: Insulin Regular 100 units/ml ONE (21:21)
[2017-07-15 07:28] LABS: HEMOGLOBIN 10.7 g/dL (12.0-18.0); MEAN CELL VOLUME 93.6 fl (80.0-94.0); MEAN CORPUSCULAR HEMOGLOBIN 30.2 pg (27.0-31.0); MEAN CORPUSCULAR HGB CONC 32.2 g/dL (33.0-37.0); RBC 3.54 Mil/uL (4.40-5.90); RED CELL DISTRIBUTION WIDTH 15.7 % (11.5-14.5); WHITE BLOOD COUNT 6.9 K/uL (4.8-10.8)
[2017-07-15] MEDS: Ipratropium 0.02% Inhal Soln (0.5 mg/2.5 ml) UD IH SCH ×4 (07:39→19:23)
[2017-07-15] MEDS: Levalbuterol 0.63 MG/3 ML Inhal Soln UD INH SCH ×3 (07:39→19:24)
[2017-07-15 08:14] LABS: BLOOD UREA NITROGEN 22 mg/dl (9-20); CALCIUM 8.8 mg/dL (8.4-10.2); GFR AFRICAN-AMERICAN > 60; GFR NON-AFRICAN AMERICAN > 60
--- NOTE | 2017-07-15 09:20 | RAD ---
HISTORY: sob COMPARISON: No prior. FINDINGS: LUNGS: Stable chronic prominence of the bilateral interstitial markings. Right midlung atelectasis/scarring No focal consolidation or pleural effusion. PLEURA: No significant pleural effusion identified, no pneumothorax apparent. CARDIOVASCULAR: Atherosclerotic aortic calcifications. Cardiomediastinal silhouette stably enlarged. OSSEOUS STRUCTURES: Unchanged. VISUALIZED UPPER ABDOMEN: Normal. OTHER FINDINGS: None. IMPRESSION: No active disease.
[2017-07-15] MEDS: Fluticasone-Salmeterol 500-50mcg Diskus IH SCH ×3 (09:22→21:46)
[2017-07-15] MEDS: Enoxaparin 40 mg Syringe SC SCH (09:23)
[2017-07-15] MEDS: diltiaZEM 240 mg/24 Hours CD Cap PO SCH (09:26)
[2017-07-15] MEDS: Venlafaxine 150 mg ER Cap PO SCH (09:26)
[2017-07-15] MEDS: Pantoprazole 40 mg EC Tab PO SCH (09:31)
[2017-07-15] MEDS: levoFLOXacin 500 mg in D5W 500 MG/100 ML BAG IVPB SCH (09:33)
--- NOTE | 2017-07-15 10:33 | CT ---
PROCEDURE: CT Chest without contrast HISTORY: sob, cp , cough COMPARISON: 06/30/2017 TECHNIQUE: Contiguous axial images were obtained through the chest without intravenous contrast enhancement. Sagittal and coronal reconstructions were performed. Radiation dose (DLP): 622.95 mGy-cm. This CT exam was performed using one or more of the following dose reduction techniques: Automated exposure control, adjustment of the mA and/or kV according to patient size, and/or use of iterative reconstruction technique. FINDINGS: LUNGS: Bandlike opacity right lower lobe likely atelectasis, extending from inferior right hilum. This is new since prior examination. There is no acute infiltrate. There is left apical fibrotic scar with associated traction bronchiectasis, unchanged in appearance. There is pleural thickening in the right lower lobe posteriorly, as on prior examination. MEDIASTINUM: Unremarkable thoracic aorta. No aneurysm. Normal sized heart. Main pulmonary artery unremarkable. No vascular congestion. No lymphadenopathy. PLEURA: No pleural fluid. No pneumothorax. BONES: Mild compression deformity of T9 vertebral body, unchanged. UPPER ABDOMEN: 3 mm nonobstructing right upper pole renal calculus. OTHER FINDINGS: None. IMPRESSION: No acute infiltrate. Bandlike atelectasis right lower lobe common nonspecific. Left apical fibrotic scar with traction bronchiectasis. 3 mm nonobstructing right upper pole renal calculus. Stable mild compression deformity of the T9 vertebral body.
[2017-07-15] MEDS ORDERED: Sodium Chloride 3% for Inhalation 4 ML VIAL.NEB IH PRN (12:16)
[2017-07-15] MEDS: Acetylcysteine 10% 4 ML IH SCH ×2 (14:02→19:24)
--- NOTE | 2017-07-15 21:10 | CP.PCM.HP ---
History of Present Illness - History of Present Illness History of Present Illness: 77 year old male with pmhx of asthma, COPD, emphysema and HTN who presented to the ED with c/o of constant chest tightness and shortness of breath x 1 day. He reports a cough which is productive, palpitations, and lightheadedness. Reports right ribs pain when he coughs, also has some swelling in the ankles. Denies fever or chills. The patient was recently admitted to [facility] , was intubated for respiratory distress, successfully extubated and discharged to [facility] last week. The patient did not respond well to treatment in the ED, thus was admitted to telemetry unit for further management. Present on Admission - Present on Admission Any Indicators Present on Admission: No Review of Systems - Review of Systems All systems: reviewed and no additional remarkable complaints except (as stated) - Constitutional Constitutional: As Per HPI - EENT Eyes: Irritation. absent: Blurred Vision, Change in Vision - Cardiovascular Cardiovascular: As Per HPI, Dyspnea on Exertion, Palpitations, Pedal Edema - Respiratory Respiratory: As Per HPI, Cough, Dyspnea, Dyspnea on Exertion - Gastrointestinal Gastrointestinal: absent: Abdominal Pain, Nausea, Vomiting - Musculoskeletal Musculoskeletal: As Per HPI - Neurological Neurological: As Per HPI Past Patient History - Infectious Disease Hx of Infectious Diseases: None - Tetanus Immunizations Tetanus Immunization: Unknown - Past Medical History & Family History Past Medical History?: Yes Pertinent Family History: States unknown - Past Social History Smoking Status: Former Smoker - CARDIAC Hx Cardiac Disorders: Yes Hx Hypertension: Yes - PULMONARY Hx Respiratory Disorders: Yes Hx Asthma: Yes Hx Chronic Obstructive Pulmonary Disease (COPD): Yes Hx Emphysema: Yes - NEUROLOGICAL Hx Neurological Disorder: No - HEENT Hx HEENT Problems: No - RENAL Hx Chronic Kidney Disease: No - ENDOCRINE/METABOLIC Hx Endocrine Disorders: No - HEMATOLOGICAL/ONCOLOGICAL Hx Blood Disorders: No - INTEGUMENTARY Hx Dermatological Problems: No - MUSCULOSKELETAL/RHEUMATOLOGICAL Hx Musculoskeletal Disorders: No Hx Falls: No - GASTROINTESTINAL Hx Gastrointestinal Disorders: No - GENITOURINARY/GYNECOLOGICAL Hx Genitourinary Disorders: No - PSYCHIATRIC Hx Psychophysiologic Disorder: Yes Hx Anxiety: Yes Hx Depression: Yes Hx Substance Use: No - SURGICAL HISTORY Hx Surgeries: Yes Hx Orthopedic Surgery: Yes (left knee replacement,back surgery) - ANESTHESIA Hx Anesthesia: Yes Hx Anesthesia Reactions: No Hx Malignant Hyperthermia: No Has any member of the family had a problem w/ anesthesia?: No Meds Allergies/Adverse Reactions: Allergies Allergy/AdvReac Type Severity Reaction Status Date / Time No Known Allergies Allergy Verified 07/14/17 18:02 Physical Exam - Constitutional Appears: Well, Non-toxic - Head Exam Head Exam: ATRAUMATIC, NORMOCEPHALIC - Eye Exam Eye Exam: EOMI, Normal appearance Pupil Exam: NORMAL ACCOMODATION - ENT Exam ENT Exam: Mucous Membranes Moist, Normal Exam - Neck Exam Neck exam: Positive for: Full Rom, Normal Inspection - Respiratory Exam Respiratory Exam: Decreased Breath Sounds, Wheezes (diffuse) - Cardiovascular Exam Cardiovascular Exam: Tachycardia, +S1, +S2 - GI/Abdominal Exam GI & Abdominal Exam: Distended, Normal Bowel Sounds, Soft - Rectal Exam Rectal Exam: Deferred - Extremities Exam Extremities exam: Positive for: pedal edema, pedal pulses present - Back Exam Back exam: NORMAL INSPECTION - Neurological Exam Neurological exam: Alert, Oriented x3 - Psychiatric Exam Psychiatric exam: Normal Affect - Skin Skin Exam: Dry, Normal Color, Warm Results - Vital Signs Recent Vital Signs: Last Vital Signs Temp 97.9 F 07/15/17 19:56 Pulse 101 H 07/15/17 19:56 Resp 20 07/15/17 19:56 BP 122/70 07/15/17 19:56 Pulse Ox 96 07/15/17 19:56 - Labs Result Diagrams: 07/15/17 07:22 07/15/17 07:22 Labs: Laboratory Results - last 24 hr 07/14/17 07/14/17 07/15/17 19:50 23:21 00:38 WBC RBC Hgb Hct MCV MCH MCHC RDW Plt Count Sodium Potassium Chloride Carbon Dioxide Anion Gap BUN Creatinine Est GFR ( Amer) Est GFR (Non-Af Amer) POC Glucose (mg/dL) 276 H Random Glucose Calcium Troponin I Influenza Typ A,B (EIA) Negative for flu a/b Blood Type A POSITIVE Antibody Screen Negative 07/15/17 07/15/17 07/15/17 07:22 07:22 09:19 WBC 6.9 RBC 3.54 L Hgb 10.7 L Hct 33.2 L MCV 93.6 MCH 30.2 MCHC 32.2 L RDW 15.7 H Plt Count 126 L Sodium 140 Potassium 4.5 Chloride 98 Carbon Dioxide 29 Anion Gap 18 BUN 22 H Creatinine 0.7 L Est GFR ( Amer) > 60 Est GFR (Non-Af Amer) > 60 POC Glucose (mg/dL) Random Glucose 258 H Calcium 8.8 Troponin I < 0.0120 Influenza Typ A,B (EIA) Blood Type Antibody Screen 07/15/17 16:55 WBC RBC Hgb Hct MCV MCH MCHC RDW Plt Count Sodium Potassium Chloride Carbon Dioxide Anion Gap BUN Creatinine Est GFR ( Amer) Est GFR (Non-Af Amer) POC Glucose (mg/dL) Random Glucose Calcium Troponin I < 0.0120 Influenza Typ A,B (EIA) Blood Type Antibody Screen - Imaging and Cardiology Chest x-ray Additional comment: HISTORY: sob COMPARISON: No prior. FINDINGS: LUNGS: Stable chronic prominence of the bilateral interstitial markings. Right midlung atelectasis/scarring No focal consolidation or pleural effusion. PLEURA: No significant pleural effusion identified, no pneumothorax apparent. CARDIOVASCULAR: Atherosclerotic aortic calcifications. Cardiomediastinal silhouette stably enlarged. OSSEOUS STRUCTURES: Unchanged. VISUALIZED UPPER ABDOMEN: Normal. OTHER FINDINGS: None. IMPRESSION: No active disease. CT scan - chest Additional comment: PROCEDURE: CT Chest without contrast HISTORY: sob, cp , cough COMPARISON: 06/30/2017 TECHNIQUE: Contiguous axial images were obtained through the chest without intravenous contrast enhancement. Sagittal and coronal reconstructions were performed. Radiation dose (DLP): 622.95 mGy-cm. This CT exam was performed using one or more of the following dose reduction techniques: Automated exposure control, adjustment of the mA and/or kV according to patient size, and/or use of iterative reconstruction technique. FINDINGS: LUNGS: Bandlike opacity right lower lobe likely atelectasis, extending from inferior right hilum. This is new since prior examination. There is no acute infiltrate. There is left apical fibrotic scar with associated traction bronchiectasis, unchanged in appearance. There is pleural thickening in the right lower lobe posteriorly, as on prior examination. MEDIASTINUM: Unremarkable thoracic aorta. No aneurysm. Normal sized heart. Main pulmonary artery unremarkable. No vascular congestion. No lymphadenopathy. PLEURA: No pleural fluid. No pneumothorax. BONES: Mild compression deformity of T9 vertebral body, unchanged. UPPER ABDOMEN: 3 mm nonobstructing right upper pole renal calculus. OTHER FINDINGS: None. IMPRESSION: No acute infiltrate. Bandlike atelectasis right lower lobe common nonspecific. Left apical fibrotic scar with traction bronchiectasis. 3 mm nonobstructing right upper pole renal calculus. Stable mild compression deformity of the T9 vertebral body. [ Reading ] [ Conclusion ] Assessment & Plan (1) COPD exacerbation Status: Acute Priority: High (2) Acute bronchitis with chronic obstructive pulmonary disease (COPD) Status: Acute Priority: High (3) Tachycardia Status: Acute Priority: High (4) HTN (hypertension) Status: Chronic Priority: Medium - Assessment and Plan (Free Text) Assessment: 77 year old male with hx of asthma, COPD, emphysema, HTN admitted for COPD exacerbation Plan: Cxr /CT - no acute findings Respiratory treatments Ipratropium/Xopenex Solumedrol IV Levaquin cardiac meds - Cardizem telemetry monitoring DVT prophylaxis
[2017-07-16] MEDS: Levalbuterol 0.63 MG/3 ML Inhal Soln UD INH SCH ×3 (01:07→13:55)
[2017-07-16] MEDS: Ipratropium 0.02% Inhal Soln (0.5 mg/2.5 ml) UD IH SCH ×4 (01:08→11:12)
--- NOTE | 2017-07-16 02:57 | CARD ---
APPROVED REPORT EKG Measurement Heart [id number] <Conclusion> Sinus tachycardia, APC Otherwise normal ECG
--- NOTE | 2017-07-16 03:06 | CARD ---
APPROVED REPORT EKG Measurement Heart [id number] <Conclusion> Sinus tachycardia with fusion complexes Otherwise normal ECG
[2017-07-16 04:51] VITALS: RESP 18
[2017-07-16] MEDS: Acetylcysteine 10% 4 ML IH SCH (07:34)
[2017-07-16] MEDS: Fluticasone-Salmeterol 500-50mcg Diskus IH SCH (09:24)
[2017-07-16] MEDS: diltiaZEM 240 mg/24 Hours CD Cap PO SCH (09:25)
[2017-07-16] MEDS: Venlafaxine 150 mg ER Cap PO SCH (09:25)
[2017-07-16] MEDS: Enoxaparin 40 mg Syringe SC SCH (09:25)
[2017-07-16] MEDS: Pantoprazole 40 mg EC Tab PO SCH (09:26)
[2017-07-16] MEDS: levoFLOXacin 500 mg in D5W 500 MG/100 ML BAG IVPB SCH (09:27)
[2017-07-16 12:02] VITALS: BP 123/72; PULSE 103; TEMP 98; O2SAT 97
--- NOTE | 2017-07-16 22:58 | CP.PCM.DIS ---
Provider - Provider Date of Admission: 07/14/17 19:30 Attending physician: Shaan Roman MD Time Spent in preparation of Discharge (in minutes): 25 Diagnosis - Discharge Diagnosis (1) COPD exacerbation Status: Acute (2) Acute bronchitis with chronic obstructive pulmonary disease (COPD) Status: Acute (3) Tachycardia Status: Resolved (4) HTN (hypertension) Status: Chronic Hospital Course - Lab Results Lab Results: Micro Results 07/14/17 18:40 Blood-Venous Blood Culture - Preliminary NO GROWTH AFTER 48 HOURS 07/14/17 18:33 Blood-Venous Blood Culture - Preliminary NO GROWTH AFTER 48 HOURS Most Recent Lab Values WBC 6.9 K/uL (4.8-10.8) 07/15/17 07:22 RBC 3.54 Mil/uL (4.40-5.90) L 07/15/17 07:22 Hgb 10.7 g/dL (12.0-18.0) L 07/15/17 07:22 Hct 33.2 % (35.0-51.0) L 07/15/17 07:22 MCV 93.6 fl (80.0-94.0) 07/15/17 07:22 MCH 30.2 pg (27.0-31.0) 07/15/17 07:22 MCHC 32.2 g/dL (33.0-37.0) L 07/15/17 07:22 RDW 15.7 % (11.5-14.5) H 07/15/17 07:22 Plt Count 126 K/uL (130-400) L 07/15/17 07:22 MPV 7.3 fl (7.2-11.7) 07/14/17 18:37 Neut % (Auto) 88.6 % (50.0-75.0) H 07/14/17 18:37 Lymph % (Auto) 6.5 % (20.0-40.0) L 07/14/17 18:37 Larue % (Auto) 1.9 % (0.0-10.0) 07/14/17 18:37 Eos % (Auto) 2.6 % (0.0-4.0) 07/14/17 18:37 Baso % (Auto) 0.4 % (0.0-2.0) 07/14/17 18:37 Neut # (Auto) 6.6 K/uL (1.8-7.0) 07/14/17 18:37 Lymph # (Auto) 0.5 K/uL (1.0-4.3) L 07/14/17 18:37 Larue # (Auto) 0.1 K/uL (0.0-0.8) 07/14/17 18:37 Eos # (Auto) 0.2 K/uL (0.0-0.7) 07/14/17 18:37 Baso # (Auto) 0.0 K/uL (0.0-0.2) 07/14/17 18:37 Neutrophils % (Manual) 80 % (42-75) H 07/14/17 18:37 Band Neutrophils % 8 % (0-2) H 07/14/17 18:37 Lymphocytes % (Manual) 7 % (20-50) L 07/14/17 18:37 Reactive Lymphs % 1 % (0-0) H 07/14/17 18:37 Monocytes % (Manual) 1 % (0-10) 07/14/17 18:37 Eosinophils % (Manual) 3 % (0-7) 07/14/17 18:37 Platelet Estimate Normal (NORMAL) 07/14/17 18:37 Hypochromasia (manual) Slight 07/14/17 18:37 Poikilocytosis (manual Slight 07/14/17 18:37 Anisocytosis (manual) Slight 07/14/17 18:37 Macrocytosis (manual) Slight 07/14/17 18:37 Target Cells Slight 07/14/17 18:37 Tear Drop Cells Slight 07/14/17 18:37 Ovalocytes Slight 07/14/17 18:37 PT 10.6 Seconds (9.8-13.1) 07/14/17 18:37 INR 1.0 (0.9-1.2) 07/14/17 18:37 APTT 26.6 Seconds (25.6-37.1) 07/14/17 18:37 pCO2 50 mm/Hg (35-45) H 07/14/17 20:32 pO2 107 mm/Hg (80-100) H 07/14/17 20:32 HCO3 28.8 mmol/L (21-28) H 07/14/17 20:32 ABG pH 7.40 (7.35-7.45) 07/14/17 20:32 ABG Total CO2 32.5 mmol/L (22-28) H 07/14/17 20:32 ABG O2 Saturation 100.3 % (95-98) H 07/14/17 20:32 ABG Base Excess 5.0 mmol/L (-2.0-3.0) H 07/14/17 20:32 Johan Test Yes 07/14/17 20:32 ABG Potassium 4.5 mmol/L (3.6-5.2) 07/14/17 20:32 A-a O2 Difference 187.0 mm/Hg 07/14/17 20:32 Sodium 139.0 mmol/L (132-148) 07/14/17 20:32 Chloride 104.0 mmol/L (98-107) 07/14/17 20:32 Glucose 333 mg/dL (75-110) H 07/14/17 20:32 Lactate 2.7 mmol/L (0.7-2.1) H 07/14/17 20:32 Vent Mode 50%vm 07/14/17 20:32 FiO2 50.0 % 07/14/17 20:32 Sodium 140 mmol/l (132-148) 07/15/17 07:22 Potassium 4.5 MMOL/L (3.6-5.0) 07/15/17 07:22 Chloride 98 mmol/L (98-107) 07/15/17 07:22 Carbon Dioxide 29 mmol/L (22-30) 07/15/17 07:22 Anion Gap 18 (10-20) 07/15/17 07:22 BUN 22 mg/dl (9-20) H 07/15/17 07:22 Creatinine 0.7 mg/dl (0.8-1.5) L 07/15/17 07:22 Est GFR ( Amer) > 60 07/15/17 07:22 Est GFR (Non-Af Amer) > 60 07/15/17 07:22 POC Glucose (mg/dL) 276 mg/dL (65-110) H 07/14/17 23:21 Random Glucose 258 mg/dL (75-110) H 07/15/17 07:22 Calcium 8.8 mg/dL (8.4-10.2) 07/15/17 07:22 Phosphorus 2.2 mg/dl (2.5-4.5) L 07/14/17 18:37 Magnesium 2.0 MG/DL (1.6-2.3) 07/14/17 18:37 Total Bilirubin 0.3 mg/dl (0.2-1.3) 07/14/17 18:37 AST 34 U/L (17-59) 07/14/17 18:37 ALT 69 U/L (21-72) 07/14/17 18:37 Alkaline Phosphatase 74 U/L (38-126) 07/14/17 18:37 Troponin I < 0.0120 ng/mL (0.00-0.120) 07/15/17 16:55 NT-Pro-B Natriuret Pep 113 pg/ml (0-900) 07/14/17 18:37 Total Protein 7.1 G/DL (6.3-8.2) 07/14/17 18:37 Albumin 3.8 g/dL (3.5-5.0) 07/14/17 18:37 Globulin 3.2 gm/dL (2.2-3.9) 07/14/17 18:37 Albumin/Globulin Ratio 1.2 (1.0-2.1) 07/14/17 18:37 Arterial Blood Potassium 4.5 mmol/L (3.6-5.2) 07/14/17 20:32 Influenza Typ A,B (EIA) Negative for flu a/b (NEGATIVE) 07/15/17 00:38 Blood Type A POSITIVE 07/14/17 19:50 Antibody Screen Negative 07/14/17 19:50 BBK History Checked Patient has bt 07/14/17 19:50 - Hospital Course Hospital Course: 77 year old male with pmhx of asthma, COPD, emphysema and HTN who was admitted for COPD exacerbation and acute bronchitis. The patient responded well to respiratory treatments, steriods and antibiotics. The patient was subsequently discharged home with Rx for oral antibiotics and Prednisone with instructions for outpatient follow up. Discharge Exam - Head Exam Head Exam: ATRAUMATIC, NORMOCEPHALIC - Respiratory Exam Respiratory Exam: Decreased Breath Sounds, Wheezes (slight, difuse) - Cardiovascular Exam Cardiovascular Exam: REGULAR RHYTHM, +S1, +S2 - GI/Abdominal Exam GI & Abdominal Exam: Distended, Soft - Neurological Exam Neurological exam: Alert, Oriented x3 - Psychiatric Exam Psychiatric exam: Normal Affect, Normal Mood - Skin Skin Exam: Dry, Normal Color, Warm Discharge Plan - Discharge Medications Prescriptions: Prednisone 5 mg PO DAILY #68 tab.ds.pk Azithromycin [Zithromax Tri-Chris] 500 mg PO DAILY #3 tablet - Follow Up Plan Condition: STABLE Disposition: HOME/ ROUTINE Instructions: Exacerbation of COPD (DC) Additional Instructions: pt. cleared for discharge to Home today by Rx for meds given to patient pt. will f/u with [facility] program Referrals: Sudha Whitaker MD [Family Provider] - Shaan Roman MD [Staff Provider] -
== END 2017-07-16 14:11 | disposition home or self-care (01) | DRG 192 ==
LOC: H.ER 17:35 → H.ERHOLD 19:30 → H.ICU/CCU 20:13 → H.ERHOLD 20:15 → H.TEL 07-15 01:47
PROVIDERS: ADMIT Internal Medicine; ATTEND Internal Medicine
DX: J44.1 Chronic obstructive pulmonary disease with (acute) exacerbation (principal); F32.9 Major depressive disorder, single episode, unspecified; J20.9 Acute bronchitis, unspecified; J44.0 Chronic obstructive pulmonary disease with (acute) lower respiratory infection; R00.0 Tachycardia, unspecified; F41.9 Anxiety disorder, unspecified; J45.909 Unspecified asthma, uncomplicated; I10 Essential (primary) hypertension